=== PATIENT | male | born 1940 | race Caucasian/White ===

== ENCOUNTER 2017-12-17 02:39 | Inpatient (IN) | payer MEDICARE ==
[~2017-12-17] VITALS: Ht 172.7 cm; Wt 101.5 kg
[~2017-12-17 02:39] MED LIST: ACET325 PO; ALLO100 PO; ALLO300 PO; AMLO10 PO; ASPI325 PO; ASPI325EC PO; ASPI81EC PO; ATOR10 PO; CALCA500CH PO; FAMO40 PO; FENO48 PO; FISH1000 PO; GEMF600 PO; GLIP10ER PO; GLIP5 PO; GLUC500 PO; GLUCHON PO; LEVITRA PO; LISI10 PO; LOSA50 PO; METF500 PO; METO100 PO; METO100ER PO; Metoprolol Tar100 MG PO; NIAC500 PO; OXYACE5T PO; OXYB5 PO; Omeprazole20 M1 PO; PIOG15 PO; SIMV10 PO; SOLI5 PO; TORSE20 PO; VITAMIN C
[2017-12-17 03:40] LABS: Source, Urine Voided
[2017-12-17 03:43] LABS: Bilirubin, Urine Neg (Neg); Blood, Urine 2+ (Neg); Glucose Qualitative, Urine Neg (Neg); Ketones, Urine Neg (Neg); Leukocyte Esterase, Urine 3+ (Neg); Nitrite, Urine Neg (Neg); Protein, Urine 1+ (Neg); Specific Gravity, Urine 1.025 (1.003-1.022); Urobilinogen, Urine 1+ (Normal)
[2017-12-17 03:47] LABS: Appearance, Urine Clear (Clear); Color, Urine Yellow (P-Yellow)
[2017-12-17 03:48] LABS: Bacteria Many /hpf; Mucus Light (0-Heavy); Red Blood Cells, Urine 0-2 /hpf (0-2); Squamous Epithelial Cells Rare /hpf (Few)
[2017-12-17 04:06] LABS: BASOPHILS ABSOLUTE AUTO 0.02 K/mm3 (0.00-0.23); BASOPHILS PERCENT AUTO 0 % (0-2); EOSINOPHILS ABSOLUTE AUTO 0.04 K/mm3 (0.00-0.68); EOSINOPHILS PERCENT AUTO 0 % (0-6); Hematocrit 36.9 % (37.0-53.0); Hemoglobin 12.1 g/dL (13.5-17.5); IMMATURE GRAN ABSOLUTE AUTO 0.03 K/mm3 (0.00-0.10); IMMATURE GRAN PERCENT AUTO 0 % (0-1); LYMPHOCYTES ABSOLUTE AUTO 1.52 K/mm3 (0.84-5.20); LYMPHOCYTES PERCENT AUTO 16 % (21-46); MONOCYTES ABSOLUTE AUTO 0.55 K/mm3 (0.16-1.47); MONOCYTES PERCENT AUTO 6 % (4-13); Mean Corpuscular HGB 30.6 pg (26.0-34.0); Mean Corpuscular HGB Conc 32.8 g/dL (31.5-36.5); Mean Corpuscular Volume 93 fL (80-100); Mean Platelet Volume 10.4 fL (9.1-12.4); NEUTROPHILS ABSOLUTE AUTO 7.14 K/mm3 (1.96-9.15); NEUTROPHILS PERCENT AUTO 77 % (41-73); Platelet Count 345 K/mm3 (150-400); RDW Coefficient Variation 13.7 % (11.7-14.2); RDW Standard Deviation 47.4 fL (35.1-46.3); Red Blood Cell Count 3.96 M/mm3 (4.30-5.90)
[2017-12-17 04:21] LABS: Alanine Aminotransfer (ALT/SGP 19 U/L (12-78); Albumin, Blood 3.4 g/dL (3.4-5.0); Albumin/Globulin Ratio 0.8 (0.8-1.8); Alk Phos 120 U/L (50-136); Anion Gap 10 mmol/L (6-16); Aspartate Aminotrans (AST/SGOT 15 U/L (12-37); Bilirubin, Total 0.4 mg/dL (0.1-1.0); Blood Urea Nitrogen 26 mg/dL (8-24); Bun/Creatinine Ratio 21.7 (12.0-20.0); CO2, Blood 24 mmol/L (21-32); Calcium, Blood 9.3 mg/dL (8.5-10.1); Chloride, Blood 107 mmol/L (98-108); Glomerular Filtration Rate >60 (60-); Glucose, Blood 168 mg/dL (70-99); Potassium, Blood 4.1 mmol/L (3.5-5.5); Sodium, Blood 141 mmol/L (136-145); Total Protein, Blood 7.4 g/dL (6.4-8.2); Troponin I <0.015 ng/mL (0.000-0.040)
[2017-12-18 04:42] LABS: BASOPHILS ABSOLUTE AUTO 0.01 K/mm3 (0.00-0.23); BASOPHILS PERCENT AUTO 0 % (0-2); EOSINOPHILS ABSOLUTE AUTO 0.04 K/mm3 (0.00-0.68); EOSINOPHILS PERCENT AUTO 1 % (0-6); Hematocrit 30.9 % (37.0-53.0); Hemoglobin 9.9 g/dL (13.5-17.5); IMMATURE GRAN ABSOLUTE AUTO 0.02 K/mm3 (0.00-0.10); IMMATURE GRAN PERCENT AUTO 0 % (0-1); LYMPHOCYTES ABSOLUTE AUTO 1.47 K/mm3 (0.84-5.20); LYMPHOCYTES PERCENT AUTO 20 % (21-46); MONOCYTES ABSOLUTE AUTO 0.72 K/mm3 (0.16-1.47); MONOCYTES PERCENT AUTO 10 % (4-13); Mean Corpuscular Volume 94 fL (80-100); NEUTROPHILS ABSOLUTE AUTO 5.22 K/mm3 (1.96-9.15); NEUTROPHILS PERCENT AUTO 70 % (41-73); Platelet Count 251 K/mm3 (150-400); RDW Coefficient Variation 13.6 % (11.7-14.2); RDW Standard Deviation 47.1 fL (35.1-46.3); White Blood Cell Count 7.48 K/mm3 (4.00-11.30)
[2017-12-18 05:04] LABS: Magnesium, Blood 2.2 mg/dL (1.6-2.4)
[2017-12-18 05:20] LABS: Alanine Aminotransfer (ALT/SGP 13 U/L (12-78); Albumin, Blood 2.7 g/dL (3.4-5.0); Albumin/Globulin Ratio 0.8 (0.8-1.8); Alk Phos 91 U/L (50-136); Anion Gap 6 mmol/L (6-16); Aspartate Aminotrans (AST/SGOT 10 U/L (12-37); Bilirubin, Total 0.5 mg/dL (0.1-1.0); Blood Urea Nitrogen 25 mg/dL (8-24); Bun/Creatinine Ratio 23.8 (12.0-20.0); CO2, Blood 26 mmol/L (21-32); Calcium, Blood 8.1 mg/dL (8.5-10.1); Chloride, Blood 110 mmol/L (98-108); Creatinine, Blood 1.05 mg/dL (0.60-1.20); Globulin, Blood 3.2 g/dL (2.2-4.0); Glomerular Filtration Rate >60 (60-); Glucose, Blood 100 mg/dL (70-99); Phosphorus, Blood 2.8 mg/dL (2.5-4.9); Potassium, Blood 3.8 mmol/L (3.5-5.5); Sodium, Blood 142 mmol/L (136-145); Total Protein, Blood 5.9 g/dL (6.4-8.2)
[2017-12-18 16:47] LABS: International Normalized Ratio 1.72; Prothrombin Time Results 18.2 Sec (9.7-11.5)
[2017-12-19 00:38] LABS: BASOPHILS ABSOLUTE AUTO 0.02 K/mm3 (0.00-0.23); BASOPHILS PERCENT AUTO 0 % (0-2); EOSINOPHILS PERCENT AUTO 1 % (0-6); Hematocrit 31.9 % (37.0-53.0); Hemoglobin 10.3 g/dL (13.5-17.5); IMMATURE GRAN ABSOLUTE AUTO 0.03 K/mm3 (0.00-0.10); IMMATURE GRAN PERCENT AUTO 0 % (0-1); LYMPHOCYTES ABSOLUTE AUTO 1.26 K/mm3 (0.84-5.20); LYMPHOCYTES PERCENT AUTO 16 % (21-46); MONOCYTES ABSOLUTE AUTO 0.77 K/mm3 (0.16-1.47); MONOCYTES PERCENT AUTO 10 % (4-13); Mean Corpuscular HGB 30.8 pg (26.0-34.0); Mean Corpuscular HGB Conc 32.3 g/dL (31.5-36.5); Mean Corpuscular Volume 96 fL (80-100); Mean Platelet Volume 10.3 fL (9.1-12.4); NEUTROPHILS ABSOLUTE AUTO 5.66 K/mm3 (1.96-9.15); NEUTROPHILS PERCENT AUTO 72 % (41-73); Platelet Count 227 K/mm3 (150-400); RDW Coefficient Variation 13.5 % (11.7-14.2); RDW Standard Deviation 47.2 fL (35.1-46.3); Red Blood Cell Count 3.34 M/mm3 (4.30-5.90); White Blood Cell Count 7.84 K/mm3 (4.00-11.30)
[2017-12-19 00:51] LABS: Anion Gap 7 mmol/L (6-16); Blood Urea Nitrogen 19 mg/dL (8-24); Bun/Creatinine Ratio 18.6 (12.0-20.0); CO2, Blood 26 mmol/L (21-32); Calcium, Blood 8.4 mg/dL (8.5-10.1); Chloride, Blood 108 mmol/L (98-108); Creatinine, Blood 1.02 mg/dL (0.60-1.20); Glomerular Filtration Rate >60 (60-); Glucose, Blood 93 mg/dL (70-99); Potassium, Blood 3.7 mmol/L (3.5-5.5); Sodium, Blood 141 mmol/L (136-145)
[2017-12-20 06:14] LABS: Magnesium, Blood 2.2 mg/dL (1.6-2.4); Phosphorus, Blood 2.8 mg/dL (2.5-4.9); Triglycerides 110 mg/dL (30-160)
[2017-12-21 06:22] LABS: Magnesium, Blood 2.3 mg/dL (1.6-2.4)
[2017-12-21 21:01] LABS: BASOPHILS ABSOLUTE AUTO 0.02 K/mm3 (0.00-0.23); BASOPHILS PERCENT AUTO 0 % (0-2); EOSINOPHILS ABSOLUTE AUTO 0.01 K/mm3 (0.00-0.68); EOSINOPHILS PERCENT AUTO 0 % (0-6); Hematocrit 34.3 % (37.0-53.0); Hemoglobin 11.4 g/dL (13.5-17.5); IMMATURE GRAN ABSOLUTE AUTO 0.09 K/mm3 (0.00-0.10); IMMATURE GRAN PERCENT AUTO 1 % (0-1); LYMPHOCYTES ABSOLUTE AUTO 1.41 K/mm3 (0.84-5.20); LYMPHOCYTES PERCENT AUTO 17 % (21-46); MONOCYTES ABSOLUTE AUTO 0.87 K/mm3 (0.16-1.47); MONOCYTES PERCENT AUTO 11 % (4-13); Mean Corpuscular HGB 30.5 pg (26.0-34.0); Mean Corpuscular HGB Conc 33.2 g/dL (31.5-36.5); Mean Platelet Volume 10.6 fL (9.1-12.4); NEUTROPHILS ABSOLUTE AUTO 5.89 K/mm3 (1.96-9.15); NEUTROPHILS PERCENT AUTO 71 % (41-73); Platelet Count 173 K/mm3 (150-400); RDW Coefficient Variation 13.5 % (11.7-14.2); RDW Standard Deviation 45.7 fL (35.1-46.3); Red Blood Cell Count 3.74 M/mm3 (4.30-5.90); White Blood Cell Count 8.29 K/mm3 (4.00-11.30)
[2017-12-21 21:03] LABS: Mean Corpuscular Volume 92 fL (80-100)
[2017-12-21 21:31] LABS: Source, Urine Clean Catch
[2017-12-21 21:40] LABS: Bilirubin, Urine Neg (Neg); Blood, Urine 1+ (Neg); Glucose Qualitative, Urine Neg (Neg); Ketones, Urine Neg (Neg); Leukocyte Esterase, Urine 1+ (Neg); Nitrite, Urine Neg (Neg); Protein, Urine 2+ (Neg); Urobilinogen, Urine NORM (Normal)
[2017-12-21 21:45] LABS: Appearance, Urine Clear (Clear); Color, Urine Yellow (P-Yellow)
[2017-12-21 21:46] LABS: Bacteria Few /hpf; Squamous Epithelial Cells Not Seen /hpf (Few); White Blood Cells, Urine 0-2 /hpf (0-5)
[2017-12-22 05:06] LABS: Magnesium, Blood 2.4 mg/dL (1.6-2.4); Phosphorus, Blood 4.3 mg/dL (2.5-4.9)
[2017-12-22 10:22] LABS: BASOPHILS ABSOLUTE AUTO 0.01 K/mm3 (0.00-0.23); BASOPHILS PERCENT AUTO 0 % (0-2); EOSINOPHILS ABSOLUTE AUTO 0.04 K/mm3 (0.00-0.68); EOSINOPHILS PERCENT AUTO 1 % (0-6); Hemoglobin 11.9 g/dL (13.5-17.5); IMMATURE GRAN ABSOLUTE AUTO 0.04 K/mm3 (0.00-0.10); IMMATURE GRAN PERCENT AUTO 1 % (0-1); LYMPHOCYTES ABSOLUTE AUTO 0.94 K/mm3 (0.84-5.20); LYMPHOCYTES PERCENT AUTO 18 % (21-46); MONOCYTES ABSOLUTE AUTO 0.56 K/mm3 (0.16-1.47); MONOCYTES PERCENT AUTO 11 % (4-13); Mean Corpuscular HGB 30.7 pg (26.0-34.0); Mean Corpuscular HGB Conc 33.1 g/dL (31.5-36.5); Mean Corpuscular Volume 93 fL (80-100); Mean Platelet Volume 10.7 fL (9.1-12.4); NEUTROPHILS ABSOLUTE AUTO 3.65 K/mm3 (1.96-9.15); NEUTROPHILS PERCENT AUTO 70 % (41-73); Platelet Count 174 K/mm3 (150-400); RDW Coefficient Variation 13.5 % (11.7-14.2); RDW Standard Deviation 46.1 fL (35.1-46.3); Red Blood Cell Count 3.88 M/mm3 (4.30-5.90); White Blood Cell Count 5.24 K/mm3 (4.00-11.30)
[2017-12-22 11:02] LABS: Alanine Aminotransfer (ALT/SGP 24 U/L (12-78); Albumin, Blood 2.7 g/dL (3.4-5.0); Albumin/Globulin Ratio 0.7 (0.8-1.8); Alk Phos 88 U/L (50-136); Anion Gap 11 mmol/L (6-16); Aspartate Aminotrans (AST/SGOT 27 U/L (12-37); Bilirubin, Total 0.4 mg/dL (0.1-1.0); Blood Urea Nitrogen 27 mg/dL (8-24); Bun/Creatinine Ratio 22.1 (12.0-20.0); CO2, Blood 23 mmol/L (21-32); Calcium, Blood 8.3 mg/dL (8.5-10.1); Chloride, Blood 104 mmol/L (98-108); Creatinine, Blood 1.22 mg/dL (0.60-1.20); Globulin, Blood 3.8 g/dL (2.2-4.0); Glomerular Filtration Rate >60 (60-); Glucose, Blood 175 mg/dL (70-99); Potassium, Blood 3.3 mmol/L (3.5-5.5); Sodium, Blood 138 mmol/L (136-145); Total Protein, Blood 6.5 g/dL (6.4-8.2)
[2017-12-22] MEDS ORDERED: WARF5 PO (13:43)
[2018-04-06] MEDS ORDERED: WARFARIN PO (17:36)
[2018-04-06] MEDS ORDERED: VITAMIN D31000 UNIT PO (17:37)
[2018-04-06] MEDS ORDERED: Cipro250 MG PO (20:22)
[2018-04-06] MEDS ORDERED: Zofran Odt4 MG PO (20:22)
[2018-04-06] MEDS ORDERED: Cipro500 MG PO (20:24)
== END 2017-12-22 14:45 | disposition home or self-care (01) | DRG 389 ==
LOC: ER 02:39 → MEDS 06:20 → ENPENDDIS 12-22 12:20 → MEDS 12-22 14:45
PROVIDERS: Emergency Medicine; Family Medicine; Hospitalist; Internal Medicine
PROC: 3E0G76Z Introduction of Nutritional Substance into Upper GI, Via Natural or Artificial Opening (ICD-10-PCS; principal; 2017-12-17)
PROC: 0D9670Z Drainage of Stomach with Drainage Device, Via Natural or Artificial Opening (ICD-10-PCS; principal; 2017-12-17)
DX: K56.609 Unspecified intestinal obstruction, unspecified as to partial versus complete obstruction (principal); N39.0 Urinary tract infection, site not specified; I48.0 Paroxysmal atrial fibrillation; D64.9 Anemia, unspecified; E11.9 Type 2 diabetes mellitus without complications; E78.5 Hyperlipidemia, unspecified; F17.211 Nicotine dependence, cigarettes, in remission; I48.91 Unspecified atrial fibrillation; I10 Essential (primary) hypertension; K66.0 Peritoneal adhesions (postprocedural) (postinfection); R06.02 Shortness of breath; Z79.4 Long term (current) use of insulin; Z95.5 Presence of coronary angioplasty implant and graft; I25.10 Atherosclerotic heart disease of native coronary artery without angina pectoris; Z90.49 Acquired absence of other specified parts of digestive tract; Z85.038 Personal history of other malignant neoplasm of large intestine
CPT/HCPCS: 36415; 36416; 36569; 74022; 74176; 74250; 80048; 80053; 81001; 82947; 83605; 83690; 83735; 84100; 84478; 84484; 85025; 85610; 85730; 87040; 87086; 93005; 93010; 96374; 96375; 99285; C1751; J0360; J0696; J1170; J1644; J1650; J2405; J7030; J7040

== ENCOUNTER 2018-01-28 17:42 | Inpatient (IN) | payer MEDICARE ==
[~2018-01-28] VITALS: Ht 172.7 cm; Wt 102.1 kg
[~2018-01-28 17:42] MED LIST changes: +WARF5 PO
[2018-01-28 18:57] LABS: BASOPHILS ABSOLUTE AUTO 0.01 K/mm3 (0.00-0.23); BASOPHILS PERCENT AUTO 0 % (0-2); EOSINOPHILS ABSOLUTE AUTO 0.05 K/mm3 (0.00-0.68); EOSINOPHILS PERCENT AUTO 0 % (0-6); Hematocrit 36.3 % (37.0-53.0); Hemoglobin 11.8 g/dL (13.5-17.5); IMMATURE GRAN ABSOLUTE AUTO 0.04 K/mm3 (0.00-0.10); IMMATURE GRAN PERCENT AUTO 0 % (0-1); LYMPHOCYTES ABSOLUTE AUTO 1.56 K/mm3 (0.84-5.20); LYMPHOCYTES PERCENT AUTO 12 % (21-46); MONOCYTES ABSOLUTE AUTO 0.67 K/mm3 (0.16-1.47); MONOCYTES PERCENT AUTO 5 % (4-13); Mean Corpuscular HGB 29.6 pg (26.0-34.0); Mean Corpuscular HGB Conc 32.5 g/dL (31.5-36.5); Mean Corpuscular Volume 91 fL (80-100); Mean Platelet Volume 10.6 fL (9.1-12.4); NEUTROPHILS ABSOLUTE AUTO 10.25 K/mm3 (1.96-9.15); NEUTROPHILS PERCENT AUTO 82 % (41-73); Platelet Count 235 K/mm3 (150-400); RDW Coefficient Variation 14.5 % (11.7-14.2); RDW Standard Deviation 48.6 fL (35.1-46.3); Red Blood Cell Count 3.98 M/mm3 (4.30-5.90); White Blood Cell Count 12.58 K/mm3 (4.00-11.30)
[2018-01-28 19:14] LABS: Alanine Aminotransfer (ALT/SGP 17 U/L (12-78); Albumin, Blood 3.4 g/dL (3.4-5.0); Albumin/Globulin Ratio 0.9 (0.8-1.8); Alk Phos 104 U/L (50-136); Anion Gap 13 mmol/L (6-16); Aspartate Aminotrans (AST/SGOT 18 U/L (12-37); Bilirubin, Total 0.4 mg/dL (0.1-1.0); Blood Urea Nitrogen 23 mg/dL (8-24); Bun/Creatinine Ratio 21.1 (12.0-20.0); CO2, Blood 21 mmol/L (21-32); Calcium, Blood 8.9 mg/dL (8.5-10.1); Chloride, Blood 107 mmol/L (98-108); Creatinine, Blood 1.09 mg/dL (0.60-1.20); Globulin, Blood 3.8 g/dL (2.2-4.0); Glomerular Filtration Rate >60 (60-); Glucose, Blood 104 mg/dL (70-99); Potassium, Blood 3.6 mmol/L (3.5-5.5); Sodium, Blood 141 mmol/L (136-145); Total Protein, Blood 7.2 g/dL (6.4-8.2)
[2018-01-28 19:17] LABS: International Normalized Ratio 2.01; Prothrombin Time Results 21.4 Sec (9.7-11.5)
[2018-01-28 21:15] LABS: Source, Urine Clean Catch
[2018-01-28 21:22] LABS: Appearance, Urine Clear (Clear); Bilirubin, Urine Neg (Neg); Blood, Urine 1+ (Neg); Color, Urine Yellow (P-Yellow); Glucose Qualitative, Urine Neg (Neg); International Normalized Ratio 1.95; Ketones, Urine Neg (Neg); Leukocyte Esterase, Urine 3+ (Neg); Nitrite, Urine Neg (Neg); Protein, Urine Neg (Neg); Prothrombin Time Results 20.7 Sec (9.7-11.5); Urobilinogen, Urine NORM (Normal)
[2018-01-28 21:29] LABS: Bacteria Few /hpf; Squamous Epithelial Cells Few /hpf (Few)
[2018-01-29 04:12] LABS: BASOPHILS ABSOLUTE AUTO 0.01 K/mm3 (0.00-0.23); BASOPHILS PERCENT AUTO 0 % (0-2); EOSINOPHILS ABSOLUTE AUTO 0.06 K/mm3 (0.00-0.68); EOSINOPHILS PERCENT AUTO 1 % (0-6); Hematocrit 36.5 % (37.0-53.0); Hemoglobin 11.8 g/dL (13.5-17.5); IMMATURE GRAN ABSOLUTE AUTO 0.02 K/mm3 (0.00-0.10); IMMATURE GRAN PERCENT AUTO 0 % (0-1); LYMPHOCYTES ABSOLUTE AUTO 1.75 K/mm3 (0.84-5.20); LYMPHOCYTES PERCENT AUTO 16 % (21-46); MONOCYTES ABSOLUTE AUTO 0.72 K/mm3 (0.16-1.47); MONOCYTES PERCENT AUTO 7 % (4-13); Mean Corpuscular HGB 29.7 pg (26.0-34.0); Mean Corpuscular HGB Conc 32.3 g/dL (31.5-36.5); Mean Corpuscular Volume 92 fL (80-100); Mean Platelet Volume 10.6 fL (9.1-12.4); NEUTROPHILS ABSOLUTE AUTO 8.27 K/mm3 (1.96-9.15); NEUTROPHILS PERCENT AUTO 76 % (41-73); Platelet Count 250 K/mm3 (150-400); RDW Coefficient Variation 14.6 % (11.7-14.2); RDW Standard Deviation 49.5 fL (35.1-46.3); Red Blood Cell Count 3.97 M/mm3 (4.30-5.90); White Blood Cell Count 10.83 K/mm3 (4.00-11.30)
[2018-01-29 04:31] LABS: Alanine Aminotransfer (ALT/SGP 18 U/L (12-78); Albumin, Blood 3.3 g/dL (3.4-5.0); Albumin/Globulin Ratio 0.9 (0.8-1.8); Alk Phos 98 U/L (50-136); Anion Gap 9 mmol/L (6-16); Aspartate Aminotrans (AST/SGOT 13 U/L (12-37); Bilirubin, Total 0.4 mg/dL (0.1-1.0); Blood Urea Nitrogen 22 mg/dL (8-24); Bun/Creatinine Ratio 22.2 (12.0-20.0); CO2, Blood 23 mmol/L (21-32); Calcium, Blood 8.5 mg/dL (8.5-10.1); Chloride, Blood 109 mmol/L (98-108); Creatinine, Blood 0.99 mg/dL (0.60-1.20); Globulin, Blood 3.7 g/dL (2.2-4.0); Glomerular Filtration Rate >60 (60-); Glucose, Blood 95 mg/dL (70-99); Potassium, Blood 3.9 mmol/L (3.5-5.5); Sodium, Blood 141 mmol/L (136-145)
[2018-04-06] MEDS ORDERED: WARFARIN PO (17:36)
[2018-04-06] MEDS ORDERED: VITAMIN D31000 UNIT PO (17:37)
[2018-04-06] MEDS ORDERED: Zofran Odt4 MG PO (20:22)
[2018-04-06] MEDS ORDERED: Cipro250 MG PO (20:22)
[2018-04-06] MEDS ORDERED: Cipro500 MG PO (20:24)
== END 2018-01-29 12:37 | disposition home or self-care (01) | DRG 390 ==
LOC: ER 17:42 → SURS 20:37
PROVIDERS: Internal Medicine; Physician Assistant
DX: K56.609 Unspecified intestinal obstruction, unspecified as to partial versus complete obstruction (principal); E11.9 Type 2 diabetes mellitus without complications; I25.10 Atherosclerotic heart disease of native coronary artery without angina pectoris; I10 Essential (primary) hypertension; E78.5 Hyperlipidemia, unspecified; Z85.038 Personal history of other malignant neoplasm of large intestine; Z79.01 Long term (current) use of anticoagulants; Z79.84 Long term (current) use of oral hypoglycemic drugs; Z79.899 Other long term (current) drug therapy; Z93.3 Colostomy status; Z87.891 Personal history of nicotine dependence
CPT/HCPCS: 36415; 74176; 80053; 81001; 82947; 83690; 85025; 85610; 96374; 96375; 99285; J1170; J2405; J7030

== ENCOUNTER 2018-10-02 14:43 | Observation (INO) | payer MEDICARE ==
[~2018-10-02] VITALS: Ht 172.7 cm; Wt 102.9 kg
[~2018-10-02 14:43] MED LIST changes: +Cipro250 MG PO; +Cipro500 MG PO; +VITAMIN D31000 UNIT PO; +WARFARIN PO; +Zofran Odt4 MG PO
[2018-10-02 15:21] LABS: Source, Urine Voided
[2018-10-02 15:38] LABS: Bilirubin, Urine Neg (Neg); Blood, Urine 2+ (Neg); Glucose Qualitative, Urine Neg (Neg); Ketones, Urine Neg (Neg); Leukocyte Esterase, Urine 1+ (Neg); Nitrite, Urine Neg (Neg); Protein, Urine Neg (Neg); Urobilinogen, Urine NORM (Normal)
[2018-10-02 15:46] LABS: BASOPHILS ABSOLUTE AUTO 0.01 K/mm3 (0.00-0.23); BASOPHILS PERCENT AUTO 0 % (0-2); EOSINOPHILS ABSOLUTE AUTO 0.01 K/mm3 (0.00-0.68); EOSINOPHILS PERCENT AUTO 0 % (0-6); Hematocrit 35.5 % (37.0-53.0); Hemoglobin 11.3 g/dL (13.5-17.5); IMMATURE GRAN ABSOLUTE AUTO 0.07 K/mm3 (0.00-0.10); IMMATURE GRAN PERCENT AUTO 1 % (0-1); LYMPHOCYTES ABSOLUTE AUTO 1.17 K/mm3 (0.84-5.20); LYMPHOCYTES PERCENT AUTO 13 % (21-46); MONOCYTES ABSOLUTE AUTO 0.78 K/mm3 (0.16-1.47); MONOCYTES PERCENT AUTO 9 % (4-13); Mean Corpuscular HGB 29.7 pg (26.0-34.0); Mean Corpuscular HGB Conc 31.8 g/dL (31.5-36.5); Mean Corpuscular Volume 93 fL (80-100); Mean Platelet Volume 10.5 fL (9.1-12.4); NEUTROPHILS ABSOLUTE AUTO 7.08 K/mm3 (1.96-9.15); NEUTROPHILS PERCENT AUTO 78 % (41-73); Platelet Count 200 K/mm3 (150-400); RDW Coefficient Variation 14.6 % (11.7-14.2); RDW Standard Deviation 49.4 fL (35.1-46.3); White Blood Cell Count 9.12 K/mm3 (4.00-11.30)
[2018-10-02 15:50] LABS: Appearance, Urine Clear (Clear); Color, Urine Yellow (P-Yellow)
[2018-10-02 15:52] LABS: Squamous Epithelial Cells Rare /hpf (Few)
[2018-10-02 15:53] LABS: Bacteria Few /hpf
[2018-10-02 16:09] LABS: Alanine Aminotransfer (ALT/SGP 25 U/L (12-78); Albumin, Blood 3.4 g/dL (3.4-5.0); Albumin/Globulin Ratio 1.1 (0.8-1.8); Alk Phos 85 U/L (50-136); Anion Gap 10 mmol/L (6-16); Aspartate Aminotrans (AST/SGOT 19 U/L (12-37); Bilirubin, Total 0.4 mg/dL (0.1-1.0); Blood Urea Nitrogen 35 mg/dL (8-24); Bun/Creatinine Ratio 27.6 (12.0-20.0); CO2, Blood 24 mmol/L (21-32); Calcium, Blood 8.3 mg/dL (8.5-10.1); Chloride, Blood 109 mmol/L (98-108); Creatinine, Blood 1.27 mg/dL (0.60-1.20); Ethanol (Alcohol), Blood, Med <3 mg/dL; Globulin, Blood 3.2 g/dL (2.2-4.0); Glomerular Filtration Rate 58 (60-); Glucose, Blood 63 mg/dL (70-99); Potassium, Blood 4.1 mmol/L (3.5-5.5); Sodium, Blood 143 mmol/L (136-145); Total Protein, Blood 6.6 g/dL (6.4-8.2); Troponin I <0.015 ng/mL (0.000-0.040)
[2018-10-02 16:23] LABS: International Normalized Ratio 2.05; Prothrombin Time Results 20.3 Sec (9.7-11.5)
[2018-10-03 05:07] LABS: Anion Gap 10 mmol/L (6-16); Blood Urea Nitrogen 31 mg/dL (8-24); Bun/Creatinine Ratio 27.4 (12.0-20.0); CO2, Blood 24 mmol/L (21-32); Calcium, Blood 8.4 mg/dL (8.5-10.1); Chloride, Blood 108 mmol/L (98-108); Creatinine, Blood 1.13 mg/dL (0.60-1.20); Glomerular Filtration Rate >60 (60-); Glucose, Blood 83 mg/dL (70-99); Potassium, Blood 4.2 mmol/L (3.5-5.5); Sodium, Blood 142 mmol/L (136-145)
[2018-10-03 05:41] LABS: International Normalized Ratio 2.01; Prothrombin Time Results 19.9 Sec (9.7-11.5)
[2018-10-03] MEDS ORDERED: METF500C PO (11:26)
== END 2018-10-03 13:31 | disposition home or self-care (01) ==
LOC: ER 14:43 → MEDS 14:44 → ENPENDDIS 10-03 12:08 → MEDS 10-03 13:31
PROVIDERS: Emergency Medicine; Internal Medicine
DX: G93.41 Metabolic encephalopathy (principal); R47.01 Aphasia; I25.10 Atherosclerotic heart disease of native coronary artery without angina pectoris; I25.2 Old myocardial infarction; E11.22 Type 2 diabetes mellitus with diabetic chronic kidney disease; I13.0 Hypertensive heart and chronic kidney disease with heart failure and stage 1 through stage 4 chronic kidney disease, or unspecified chronic kidney disease; I50.9 Heart failure, unspecified; N18.3 Chronic kidney disease, stage 3 (moderate); M19.90 Unspecified osteoarthritis, unspecified site; E78.5 Hyperlipidemia, unspecified; E11.649 Type 2 diabetes mellitus with hypoglycemia without coma; I48.0 Paroxysmal atrial fibrillation; Z85.038 Personal history of other malignant neoplasm of large intestine; Z95.5 Presence of coronary angioplasty implant and graft; Z79.01 Long term (current) use of anticoagulants; Z90.49 Acquired absence of other specified parts of digestive tract; Z79.84 Long term (current) use of oral hypoglycemic drugs; Z79.899 Other long term (current) drug therapy; Z82.49 Family history of ischemic heart disease and other diseases of the circulatory system; Z87.891 Personal history of nicotine dependence
CPT/HCPCS: 36415; 70450; 71045; 80048; 80053; 81001; 82947; 83605; 84443; 84484; 85025; 85610; 87086; 93005; 93010; 96360; 96361; 99285-25; G0378; G0480; J7042

== ENCOUNTER 2019-07-25 19:01 | Inpatient (IN) | payer MEDICARE ==
[~2019-07-25] VITALS: Ht 172.7 cm; Wt 106.5 kg
[~2019-07-25 19:01] MED LIST changes: +METF500C PO
[2019-07-25 20:04] LABS: BASOPHILS ABSOLUTE AUTO 0.01 K/mm3 (0.00-0.23); BASOPHILS PERCENT AUTO 0 % (0-2); EOSINOPHILS ABSOLUTE AUTO 0.02 K/mm3 (0.00-0.68); EOSINOPHILS PERCENT AUTO 0 % (0-6); Hematocrit 34.3 % (37.0-53.0); Hemoglobin 11.4 g/dL (13.5-17.5); IMMATURE GRAN ABSOLUTE AUTO 0.07 K/mm3 (0.00-0.10); IMMATURE GRAN PERCENT AUTO 1 % (0-1); LYMPHOCYTES ABSOLUTE AUTO 3.22 K/mm3 (0.84-5.20); LYMPHOCYTES PERCENT AUTO 23 % (21-46); MONOCYTES ABSOLUTE AUTO 0.69 K/mm3 (0.16-1.47); MONOCYTES PERCENT AUTO 5 % (4-13); Mean Corpuscular HGB 29.4 pg (26.0-34.0); Mean Corpuscular HGB Conc 33.2 g/dL (31.5-36.5); Mean Corpuscular Volume 88 fL (80-100); Mean Platelet Volume 10.8 fL (9.1-12.4); NEUTROPHILS ABSOLUTE AUTO 9.79 K/mm3 (1.96-9.15); NEUTROPHILS PERCENT AUTO 71 % (41-73); Platelet Count 261 K/mm3 (150-400); RDW Coefficient Variation 15.2 % (11.7-14.2); RDW Standard Deviation 49.4 fL (35.1-46.3); Red Blood Cell Count 3.88 M/mm3 (4.30-5.90)
[2019-07-25 20:23] LABS: Alanine Aminotransfer (ALT/SGP 18 U/L (12-78); Albumin, Blood 4.1 g/dL (3.4-5.0); Albumin/Globulin Ratio 1.1 (0.8-1.8); Alk Phos 112 U/L (50-136); Anion Gap 13 mmol/L (6-16); Aspartate Aminotrans (AST/SGOT 17 U/L (12-37); Bilirubin, Total 0.5 mg/dL (0.1-1.0); Blood Urea Nitrogen 26 mg/dL (8-24); CO2, Blood 20 mmol/L (21-32); Calcium, Blood 9.4 mg/dL (8.5-10.1); Chloride, Blood 110 mmol/L (98-108); Creatinine, Blood 1.13 mg/dL (0.60-1.20); Globulin, Blood 3.7 g/dL (2.2-4.0); Glomerular Filtration Rate >60 (60-); Glucose, Blood 191 mg/dL (70-99); Potassium, Blood 3.5 mmol/L (3.5-5.5); Sodium, Blood 143 mmol/L (136-145); Total Protein, Blood 7.8 g/dL (6.4-8.2)
[2019-07-25] MEDS ORDERED: PIOG15 PO (22:19)
[2019-07-25] MEDS ORDERED: GLIP10ER PO (22:21)
[2019-07-25 23:40] LABS: International Normalized Ratio 2.01
--- NOTE | 2019-07-26 01:29 | NUR ---
PATIENT IS A NEW ADMIT FROM THE ED. AXOX 3 AND ONE ASSIST TRANSFER FROM [facility] TO BED. NS INFUSING AT 125mL/HR WITH KCL INFUSING AT 50 mL/HR X ONE 100mL BAG. PATIENT DENIES PAIN AND SOB. MILD N/V WITH MOVEMENT. ED RN REPORTS NO NG TUBE AT THIS TIME. NPO. COLOSTOMY LLQ, SELF CARE. REPORTS USES A URINAL BS STANDING ONLY. PATIENT ORIENTED TO ROOM AND CALL LIGHT SYSTEM. CALL LIGHT IN REACH.
--- NOTE | 2019-07-26 03:46 | NUR ---
[place] NOW REPORTS PATIENT IS A-FIB MID 80'S. TECH REPORTS ON ADMIT PATENT APPEARED TO BE NSR 70'S.
[2019-07-26 04:27] LABS: BASOPHILS ABSOLUTE AUTO 0.01 K/mm3 (0.00-0.23); BASOPHILS PERCENT AUTO 0 % (0-2); EOSINOPHILS PERCENT AUTO 0 % (0-6); Hematocrit 32.2 % (37.0-53.0); Hemoglobin 10.3 g/dL (13.5-17.5); IMMATURE GRAN ABSOLUTE AUTO 0.02 K/mm3 (0.00-0.10); IMMATURE GRAN PERCENT AUTO 0 % (0-1); LYMPHOCYTES ABSOLUTE AUTO 0.92 K/mm3 (0.84-5.20); LYMPHOCYTES PERCENT AUTO 11 % (21-46); MONOCYTES ABSOLUTE AUTO 0.63 K/mm3 (0.16-1.47); MONOCYTES PERCENT AUTO 7 % (4-13); Mean Corpuscular HGB 28.9 pg (26.0-34.0); Mean Corpuscular Volume 90 fL (80-100); Mean Platelet Volume 10.2 fL (9.1-12.4); NEUTROPHILS PERCENT AUTO 82 % (41-73); Platelet Count 206 K/mm3 (150-400); RDW Coefficient Variation 15.1 % (11.7-14.2); RDW Standard Deviation 49.6 fL (35.1-46.3); Red Blood Cell Count 3.57 M/mm3 (4.30-5.90); White Blood Cell Count 8.58 K/mm3 (4.00-11.30)
[2019-07-26 04:45] LABS: Alanine Aminotransfer (ALT/SGP 17 U/L (12-78); Albumin, Blood 3.5 g/dL (3.4-5.0); Albumin/Globulin Ratio 1.1 (0.8-1.8); Alk Phos 99 U/L (50-136); Anion Gap 7 mmol/L (6-16); Aspartate Aminotrans (AST/SGOT 10 U/L (12-37); Bilirubin, Total 0.4 mg/dL (0.1-1.0); Blood Urea Nitrogen 22 mg/dL (8-24); Bun/Creatinine Ratio 20.2 (12.0-20.0); CO2, Blood 25 mmol/L (21-32); Calcium, Blood 8.6 mg/dL (8.5-10.1); Chloride, Blood 113 mmol/L (98-108); Creatinine, Blood 1.09 mg/dL (0.60-1.20); Globulin, Blood 3.3 g/dL (2.2-4.0); Glomerular Filtration Rate >60 (60-); Glucose, Blood 153 mg/dL (70-99); Potassium, Blood 4.1 mmol/L (3.5-5.5); Sodium, Blood 145 mmol/L (136-145); Total Protein, Blood 6.8 g/dL (6.4-8.2)
--- NOTE | 2019-07-26 04:57 | NUR ---
SHIFT SUMMARY PATIENT IS A NEW ADMIT FROM THE ED. AXOX 3 AND ONE ASSIST TO BR. USES URINAL AT BEDSIDE STANDING ONLY. NPO. DENIES PAIN, SOB, AND N/V. BLOOD GLUCOSE CHECKS Q6 START IN AM. PIV REMAINS INTACT. SCHEDULED NS KCL AND SCHEDULE NS INFUSING PER EMAR. COLOSTOMY LLQ AND SELF CARE PER PATIENT. IT TRAINEE REPORTS A-FIB MID 80'S. VSS/AFBEBRILE. COOPERATIVE WITH CARE., CALL LIGHT IN REACH. BED IN LOWEST POSITION. WILL CONTINUE TO MONITOR UNTIL DAY SHIFT NURSE ASSUMES CARE.
--- NOTE | 2019-07-26 15:13 | NUR ---
Initial Visit: Palliative Care Consult for AD/POLST and Advanced Care Planning. Pt is A&O and reports a tolerable 4/10 pain in his upper abdomen. Pt denies anxiety, dyspnea, and nausea at this time. Engaged in therapeutic conversation regarding advanced care planning. Pt reports living at home with his and is 's caregiver. Pt denies any latter-day beliefs. Pt reports having 3 children, 2 daughter who live [place] Pt reports minimal support but can call on one of his daughters if needed. Assessed Pt's understanding of disease process and when asked about his knowlede of CHF Pt's states "not much". Educated Pt on disease process and trajectory of disease. Encouraged Pt to have routine conversations with PCP and manager strategic development regarding disease process in order to plan accordingly with V/U made by Pt. Engaged in disussion regarding code status, POLST and Advanced Directive. Listened as Pt describes his wishes. Educated Pt on life sustaining measures including risk factors. Pt reports he does not want to be on life support for a prolonged period of time but would like everything done in a sudden or acute event. Discussed completing POLST/AD and Pt denies need at this time. Confirmed Pt's wishes and Pt reports wanting to be a full code. Left AD wtih Pt and encouraged consideration of completing. Pt reports no other concerns at this time. Changed code status to full code per V/O from Dr Zayas. Palliative Care will remain available.
--- NOTE | 2019-07-26 15:29 | NUR ---
Late Entry from Initial Visit. Discussed with Pt report of him unsure if he would accept surgical intervention if needed. Pt reports he would accept surgery if needed.
--- NOTE | 2019-07-26 17:04 | NUR ---
Spiritual Care inital note: Mr. Moreno was dismissive of pastoral care. [employer] will remain available.
--- NOTE | 2019-07-26 18:25 | NUR ---
PT. WITHOUT N/V TODAY HAS BEEN STARTED ON CLEAR LIQUIDS. TOLERATING WELL. PT. HAS DENIED PAIN WELL. PT. HAS LARGE HERNIA AROUND STOMA, B.T. ARE HYPERACTIVE AND OSTOMY PUTTING OUT STOOL. DR. VALERO IN TO SEE PT AND DOESN'T FEEL SURGERY IS NECESSARY. NO OTHER CHANGES THIS SHIFT.
--- NOTE | 2019-07-27 04:45 | NUR ---
SHIFT SUMMARY PT HAD NO ISSUES OR COMPLAINTS. PT HAS SLEPT WELL T/O SHIFT. PT CURRENTLY SLEEPING IN NO DISTRESS. CALL LIGHT IN REACH.
[2019-07-27] MEDS ORDERED: FERSU300 PO (07:55)
[2019-07-27] MEDS ORDERED: OMEPRAZOLE20 MG PO (07:55)
--- NOTE | 2019-07-27 10:15 | NUR ---
PATIENT DISCHARGE: PATIENT DISCHARGED TO HOME THIS SHIFT. MEDICATION RECONCILIATION COMPLETED; MED LIST FAXED TO [facility]. DISCHARGE EDUCATION COMPLETED WITH PATIENT AND FAMILY. PATIENT TRANSPORTED TO EXIT BY [facility] WITH WHEELCHAIR AT 1000. PATIENT DEPARTED [facility] VIA PRIVATE AUTO.
== END 2019-07-27 10:08 | disposition home or self-care (01) | DRG 389 ==
LOC: ER 19:01 → MEDS 19:02 → ER 07-26 23:50 → ENPENDDIS 07-27 07:39 → MEDS 07-27 10:08
PROVIDERS: Emergency Medicine; Nurse Practitioner Acute Care; ADMIT Family Medicine
DX: K56.600 Partial intestinal obstruction, unspecified as to cause (principal); I50.32 Chronic diastolic (congestive) heart failure; I13.0 Hypertensive heart and chronic kidney disease with heart failure and stage 1 through stage 4 chronic kidney disease, or unspecified chronic kidney disease; Z93.3 Colostomy status; Z90.49 Acquired absence of other specified parts of digestive tract; Z85.048 Personal history of other malignant neoplasm of rectum, rectosigmoid junction, and anus; I25.10 Atherosclerotic heart disease of native coronary artery without angina pectoris; I25.2 Old myocardial infarction; Z95.5 Presence of coronary angioplasty implant and graft; M19.90 Unspecified osteoarthritis, unspecified site; E78.5 Hyperlipidemia, unspecified; N18.3 Chronic kidney disease, stage 3 (moderate); E11.22 Type 2 diabetes mellitus with diabetic chronic kidney disease; I48.0 Paroxysmal atrial fibrillation; Z87.891 Personal history of nicotine dependence; Z66 Do not resuscitate; Z79.01 Long term (current) use of anticoagulants; G47.33 Obstructive sleep apnea (adult) (pediatric); M10.9 Gout, unspecified; K43.5 Parastomal hernia without obstruction or gangrene
CPT/HCPCS: 36415; 71046; 74177; 80053; 82947; 83605; 83690; 83735; 85025; 85610; 87040; 93005; 93010; 96361; 96365-59; 96375; 99285-25; J2405; J2543; J3010; J3480; J7030; Q9967

== ENCOUNTER 2019-11-06 10:12 | Day surgery (SDC) | payer MEDICARE ==
[~2019-11-06] VITALS: Ht 172.7 cm; Wt 104.8 kg
[~2019-11-06 10:12] MED LIST changes: +FERSU300 PO; +OMEPRAZOLE20 MG PO
--- NOTE | 2019-11-06 11:14 | NUR ---
11/06/19 1114 Nelida Vazquez ONE BAD IV BY DAIANA, ON GOOD IV IN RIGHT AC BY NURSE
== END 2019-11-06 13:02 | disposition home or self-care (01) ==
LOC: ORSCSDS 10:12
PROVIDERS: Internal Medicine Gastroenterology
PROC: 0DBL8ZX Excision of Transverse Colon, Via Natural or Artificial Opening Endoscopic, Diagnostic (ICD-10-PCS; principal; 2019-11-06 12:00)
PROC: 0DBK8ZX Excision of Ascending Colon, Via Natural or Artificial Opening Endoscopic, Diagnostic (ICD-10-PCS; principal; 2019-11-06 12:00)
DX: Z12.11 Encounter for screening for malignant neoplasm of colon (principal); D12.2 Benign neoplasm of ascending colon; D12.3 Benign neoplasm of transverse colon; Z85.038 Personal history of other malignant neoplasm of large intestine; I48.91 Unspecified atrial fibrillation; I10 Essential (primary) hypertension; I50.9 Heart failure, unspecified; I25.10 Atherosclerotic heart disease of native coronary artery without angina pectoris; E11.9 Type 2 diabetes mellitus without complications; E78.5 Hyperlipidemia, unspecified; I25.2 Old myocardial infarction; G47.33 Obstructive sleep apnea (adult) (pediatric); Z79.01 Long term (current) use of anticoagulants; Z79.899 Other long term (current) drug therapy
CPT/HCPCS: 82947; 88305; J2704

== ENCOUNTER → 2020-02-03 | Outpatient (CLI) | payer MEDICARE ==
[2020-02-03 12:58] LABS: BASOPHILS ABSOLUTE AUTO 0.03 K/mm3 (0.00-0.23); BASOPHILS PERCENT AUTO 0 % (0-2); EOSINOPHILS ABSOLUTE AUTO 0.01 K/mm3 (0.00-0.68); EOSINOPHILS PERCENT AUTO 0 % (0-6); Hemoglobin 11.3 g/dL (13.5-17.5); IMMATURE GRAN ABSOLUTE AUTO 0.04 K/mm3 (0.00-0.10); IMMATURE GRAN PERCENT AUTO 0 % (0-1); LYMPHOCYTES ABSOLUTE AUTO 1.29 K/mm3 (0.84-5.20); LYMPHOCYTES PERCENT AUTO 14 % (21-46); MONOCYTES ABSOLUTE AUTO 0.99 K/mm3 (0.16-1.47); MONOCYTES PERCENT AUTO 11 % (4-13); Mean Corpuscular HGB 29.1 pg (26.0-34.0); Mean Corpuscular HGB Conc 32.3 g/dL (31.5-36.5); Mean Corpuscular Volume 90 fL (80-100); Mean Platelet Volume 10.6 fL (9.1-12.4); NEUTROPHILS ABSOLUTE AUTO 7.01 K/mm3 (1.96-9.15); NRBC ABSOLUTE 0.02 K/mm3 (0.00-0.02); NRBC Auto 0.2 /100 WBC (0.0-0.2); Platelet Count 260 K/mm3 (150-400); RDW Coefficient Variation 20.3 % (11.7-14.2); RDW Standard Deviation 65.3 fL (35.1-46.3); Red Blood Cell Count 3.88 M/mm3 (4.30-5.90); White Blood Cell Count 9.37 K/mm3 (4.00-11.30)
[2020-02-03 13:01] LABS: NEUTROPHILS PERCENT AUTO 7 % (41-73)
[2020-02-03 13:12] LABS: Bun/Creatinine Ratio 13.1 (12.0-20.0); Calcium, Blood 8.2 mg/dL (8.5-10.1); Creatinine, Blood 1.98 mg/dL (0.60-1.20); Potassium, Blood 3.9 mmol/L (3.5-5.5)
== END ==
LOC: LAB SHORT 12:52 → LAB EV 12:52
PROVIDERS: Physician Assistant Surgical
DX: M62.81 Muscle weakness (generalized) (principal)
CPT/HCPCS: 80048; 85025

== ENCOUNTER 2020-02-21 08:27 | Day surgery (SDC) | payer MEDICARE ==
[~2020-02-21] VITALS: Ht 167.6 cm; Wt 96.0 kg
[2020-02-21] MEDS ORDERED: Glipizide Xl2.5 MG PO (08:58)
[2020-02-21] MEDS ORDERED: COLACE100 MG PO (09:00)
--- NOTE | 2020-02-21 11:06 | NUR ---
Pt received from Phyllis Marcelo RN, Pt alert and oriented. Pt denies pain at this time. Right groin dressing opsite with closure no bleeding or hematoma noted. Pt supine with hob 5% bilat dp pulse 2+. Pt in A-fib, VSS. IV with 550 ml of NS rohan infusing into the Right A/C. Call light given. Dr. Callaway spoke with patient. Postive results given by DR. Callaway. Pt resting warm blankets and comfort measure given.
[2020-02-21] MEDS ORDERED: CLOP75 PO (11:45)
--- NOTE | 2020-02-21 12:16 | NUR ---
Sbar Marianne Finney RN reviewed site iv infused 100 ml ns.
--- NOTE | 2020-02-21 14:07 | NUR ---
PT SITTING ON EDGE OF BED, FEET DANGLING. RIGHT FEM SITE SOFT, WITHOUT HEMATOMA OR SWELLING.
--- NOTE | 2020-02-21 16:51 | NUR ---
DISCHARGE: PT REMAINED A&OX3 AND DENIED ANY PAIN DURING RECOVERY. R CECILY SITE REMAINED STABLE DURING [id number] HEMATOMA NOTED. IV DC'D WITH TIP IN TACT. PT ABLE TO DRESS SELF WITH LITTLE ASSISTANCE. PT AMBULATED TO RESTROOM WITH STEADY GAITE. DISCHARGE PAPERWORK GONE OVER WITH PT. PT VERBALLY STATED THE UNDERSTANDING OF THE DISHCARGE EDUCATION AND DENIED ANY QUESTIONS AT THIS TIME. PT WHELED OUT BY ESCORT.
== END 2020-02-21 23:46 | disposition home or self-care (01) ==
LOC: MHTC 08:27
DX: I70.1 Atherosclerosis of renal artery (principal); I10 Essential (primary) hypertension; I25.10 Atherosclerotic heart disease of native coronary artery without angina pectoris; E11.51 Type 2 diabetes mellitus with diabetic peripheral angiopathy without gangrene; I48.0 Paroxysmal atrial fibrillation; E78.5 Hyperlipidemia, unspecified; I12.9 Hypertensive chronic kidney disease with stage 1 through stage 4 chronic kidney disease, or unspecified chronic kidney disease; N18.9 Chronic kidney disease, unspecified; E66.9 Obesity, unspecified; Z68.37 Body mass index [BMI] 37.0-37.9, adult; Z87.891 Personal history of nicotine dependence; Z95.5 Presence of coronary angioplasty implant and graft; Z79.01 Long term (current) use of anticoagulants; Z79.84 Long term (current) use of oral hypoglycemic drugs; Z79.899 Other long term (current) drug therapy
CPT/HCPCS: 36252; 37236; 82947; 99152; 99153; A9270-GY; C1725; C1760; C1769; C1876; C1887; C1894; J1644; J2250; J3010; J7030; Q9967

== ENCOUNTER 2020-06-22 14:38 | Inpatient (IN) | payer MEDICARE ==
[~2020-06-22] VITALS: Ht 172.7 cm; Wt 89.0 kg
[~2020-06-22 14:38] MED LIST changes: -ALLO100 PO; -ATOR10 PO; +CLOP75 PO; +Glipizide Xl2.5 MG PO; -LOSA50 PO; -Metoprolol Tar100 MG PO; -VITAMIN D31000 UNIT PO; -WARF5 PO
[2020-06-22 15:21] LABS: BASOPHILS ABSOLUTE AUTO 0.02 K/mm3 (0.00-0.23); BASOPHILS PERCENT AUTO 0 % (0-2); EOSINOPHILS ABSOLUTE AUTO 0.04 K/mm3 (0.00-0.68); EOSINOPHILS PERCENT AUTO 0 % (0-6); Hematocrit 34.9 % (37.0-53.0); Hemoglobin 11.1 g/dL (13.5-17.5); IMMATURE GRAN ABSOLUTE AUTO 0.02 K/mm3 (0.00-0.10); IMMATURE GRAN PERCENT AUTO 0 % (0-1); LYMPHOCYTES ABSOLUTE AUTO 2.66 K/mm3 (0.84-5.20); LYMPHOCYTES PERCENT AUTO 30 % (21-46); MONOCYTES ABSOLUTE AUTO 0.89 K/mm3 (0.16-1.47); MONOCYTES PERCENT AUTO 10 % (4-13); Mean Corpuscular HGB 30.3 pg (26.0-34.0); Mean Corpuscular HGB Conc 31.8 g/dL (31.5-36.5); Mean Corpuscular Volume 95 fL (80-100); Mean Platelet Volume 10.2 fL (9.1-12.4); NEUTROPHILS ABSOLUTE AUTO 5.36 K/mm3 (1.96-9.15); NEUTROPHILS PERCENT AUTO 60 % (41-73); Platelet Count 245 K/mm3 (150-400); RDW Coefficient Variation 14.7 % (11.7-14.2); RDW Standard Deviation 51.8 fL (35.1-46.3); Red Blood Cell Count 3.66 M/mm3 (4.30-5.90); White Blood Cell Count 8.99 K/mm3 (4.00-11.30)
[2020-06-22 15:41] LABS: Albumin, Blood 3.2 g/dL (3.4-5.0); Albumin/Globulin Ratio 0.9 (0.8-1.8); Bilirubin, Total 0.3 mg/dL (0.1-1.0); Bun/Creatinine Ratio 27.7 (12.0-20.0); Calcium, Blood 8.9 mg/dL (8.5-10.1); Creatinine, Blood 1.37 mg/dL (0.60-1.20); Globulin, Blood 3.7 g/dL (2.2-4.0); Potassium, Blood 4.2 mmol/L (3.5-5.5); Total Protein, Blood 6.9 g/dL (6.4-8.2)
[2020-06-22] MEDS ORDERED: LOSARTAN POTAS100 MG PO (16:51)
[2020-06-22] MEDS ORDERED: AMLO5 PO (16:52)
[2020-06-22] MEDS ORDERED: ALLO100 PO (17:03)
[2020-06-22] MEDS ORDERED: ATOR10 PO (17:04)
[2020-06-22] MEDS ORDERED: Metoprolol Tar100 MG PO (17:05)
[2020-06-22] MEDS ORDERED: WARF5 PO (17:06)
[2020-06-22] MEDS ORDERED: VITAMIN D31000 UNIT PO (17:06)
[2020-06-22] MEDS ORDERED: COLACE100 MG PO (17:07)
[2020-06-22 17:09] LABS: Source, Urine Clean Catch
[2020-06-22] MEDS ORDERED: OMEP20ER PO (17:12)
[2020-06-22 17:18] LABS: Appearance, Urine Clear (Clear); Bilirubin, Urine Neg (Neg); Blood, Urine 1+ (Neg); Color, Urine Yellow (P-Yellow); Glucose Qualitative, Urine Neg (Neg); Ketones, Urine Neg (Neg); Leukocyte Esterase, Urine 2+ (Neg); Nitrite, Urine Neg (Neg); Protein, Urine Neg (Neg); Specific Gravity, Urine 1.015 (1.003-1.022); Urobilinogen, Urine NORM (Normal)
[2020-06-22 17:24] LABS: Bacteria Few /hpf; Red Blood Cells, Urine 0-2 /hpf (0-2); Squamous Epithelial Cells Rare /hpf (Few)
[2020-06-22] MEDS ORDERED: PIOG15 PO (17:24)
--- NOTE | 2020-06-22 19:00 | NUR ---
Patient arrived to room 229. Patient has colostomy that he reported to be 4 years old. Patient denies pain or nausea at this time. Patient NPO. Bowel tones hypoative throughout. Call light within patient reach.
[2020-06-23 04:48] LABS: BASOPHILS ABSOLUTE AUTO 0.02 K/mm3 (0.00-0.23); BASOPHILS PERCENT AUTO 0 % (0-2); EOSINOPHILS ABSOLUTE AUTO 0.05 K/mm3 (0.00-0.68); EOSINOPHILS PERCENT AUTO 1 % (0-6); Hematocrit 37.2 % (37.0-53.0); Hemoglobin 11.7 g/dL (13.5-17.5); IMMATURE GRAN ABSOLUTE AUTO 0.01 K/mm3 (0.00-0.10); IMMATURE GRAN PERCENT AUTO 0 % (0-1); LYMPHOCYTES ABSOLUTE AUTO 1.83 K/mm3 (0.84-5.20); LYMPHOCYTES PERCENT AUTO 25 % (21-46); MONOCYTES ABSOLUTE AUTO 0.79 K/mm3 (0.16-1.47); MONOCYTES PERCENT AUTO 11 % (4-13); Mean Corpuscular HGB 29.9 pg (26.0-34.0); Mean Corpuscular HGB Conc 31.5 g/dL (31.5-36.5); Mean Corpuscular Volume 95 fL (80-100); Mean Platelet Volume 10.2 fL (9.1-12.4); NEUTROPHILS ABSOLUTE AUTO 4.76 K/mm3 (1.96-9.15); NEUTROPHILS PERCENT AUTO 64 % (41-73); Platelet Count 228 K/mm3 (150-400); RDW Coefficient Variation 14.6 % (11.7-14.2); RDW Standard Deviation 50.3 fL (35.1-46.3); Red Blood Cell Count 3.91 M/mm3 (4.30-5.90); White Blood Cell Count 7.46 K/mm3 (4.00-11.30)
[2020-06-23 04:54] LABS: Alanine Aminotransfer (ALT/SGP 18 U/L (12-78); Albumin/Globulin Ratio 0.9 (0.8-1.8); Alk Phos 99 U/L (50-136); Anion Gap 6 mmol/L (6-16); Aspartate Aminotrans (AST/SGOT 13 U/L (12-37); Bilirubin, Total 0.5 mg/dL (0.1-1.0); Blood Urea Nitrogen 27 mg/dL (8-24); Bun/Creatinine Ratio 24.5 (12.0-20.0); CO2, Blood 25 mmol/L (21-32); Calcium, Blood 8.6 mg/dL (8.5-10.1); Chloride, Blood 109 mmol/L (98-108); Globulin, Blood 3.4 g/dL (2.2-4.0); Glomerular Filtration Rate >60 (60-); Glucose, Blood 104 mg/dL (70-99); Potassium, Blood 3.7 mmol/L (3.5-5.5); Sodium, Blood 140 mmol/L (136-145); Total Protein, Blood 6.4 g/dL (6.4-8.2)
--- NOTE | 2020-06-23 06:20 | NUR ---
PT VSS T/O NIGHT. PT REP PAIN IN MID-UPPER ABD, MED PER EMAR W/REP RELIEF. PT HAD NO C/O N/V, NO OUTPUT FROM OSTOMY. PT NPO PER ORDERS, IVF CONT. PT VOIDIONG CLEAR YELLOW URINE. PT UP INDEP TO SOB, DENIES DIZZINESS WHEN UP. AWAITING SURGICAL CONSULT. WILL MONITOR UNTIL REP GIVEN TO ONCOMING RN.
--- NOTE | 2020-06-23 16:01 | NUR ---
SHIFT SUMMARY PT HAS RESTED WELL THIS AFTERNOON. MEDICATED X1 THIS MORNING WITH IV FENTANYL FOR ABD PAIN. PT ALSO HAD X1 EPISODE OF EMESIS THIS MORNING, BUT NO N/V SINCE. PT MINIMALLY SIPPING ON WATER AND ICE CHIPS. PT HAVING SCANT LIQ BROWN STOOL FROM OSTOMY BAG WHICH HE MANAGES INDEPENDENTLY. IVF INFUSING PER ORDERS. PT UP TO RESTROOM WITH 1 SBA. CONT BOWEL REST. PT USES CALL LIGHT APPROPRIATELY.
[2020-06-23 17:17] LABS: BASOPHILS ABSOLUTE AUTO 0.01 K/mm3 (0.00-0.23); BASOPHILS PERCENT AUTO 0 % (0-2); EOSINOPHILS ABSOLUTE AUTO 0.01 K/mm3 (0.00-0.68); EOSINOPHILS PERCENT AUTO 0 % (0-6); Hematocrit 38.1 % (37.0-53.0); Hemoglobin 12.1 g/dL (13.5-17.5); IMMATURE GRAN ABSOLUTE AUTO 0.02 K/mm3 (0.00-0.10); IMMATURE GRAN PERCENT AUTO 0 % (0-1); LYMPHOCYTES ABSOLUTE AUTO 1.61 K/mm3 (0.84-5.20); LYMPHOCYTES PERCENT AUTO 18 % (21-46); MONOCYTES ABSOLUTE AUTO 0.81 K/mm3 (0.16-1.47); MONOCYTES PERCENT AUTO 9 % (4-13); Mean Corpuscular HGB 30.4 pg (26.0-34.0); Mean Corpuscular HGB Conc 31.8 g/dL (31.5-36.5); Mean Corpuscular Volume 96 fL (80-100); NEUTROPHILS ABSOLUTE AUTO 6.46 K/mm3 (1.96-9.15); NEUTROPHILS PERCENT AUTO 73 % (41-73); Platelet Count 244 K/mm3 (150-400); RDW Coefficient Variation 14.6 % (11.7-14.2); RDW Standard Deviation 51.5 fL (35.1-46.3); Red Blood Cell Count 3.98 M/mm3 (4.30-5.90); White Blood Cell Count 8.92 K/mm3 (4.00-11.30)
[2020-06-23 17:46] LABS: Alanine Aminotransfer (ALT/SGP 15 U/L (12-78); Albumin, Blood 3.1 g/dL (3.4-5.0); Albumin/Globulin Ratio 0.9 (0.8-1.8); Alk Phos 105 U/L (50-136); Anion Gap 7 mmol/L (6-16); Aspartate Aminotrans (AST/SGOT 17 U/L (12-37); Bilirubin, Total 0.5 mg/dL (0.1-1.0); Blood Urea Nitrogen 26 mg/dL (8-24); Bun/Creatinine Ratio 25.2 (12.0-20.0); CO2, Blood 25 mmol/L (21-32); Calcium, Blood 8.7 mg/dL (8.5-10.1); Chloride, Blood 108 mmol/L (98-108); Creatinine, Blood 1.03 mg/dL (0.60-1.20); Globulin, Blood 3.6 g/dL (2.2-4.0); Glomerular Filtration Rate >60 (60-); Glucose, Blood 101 mg/dL (70-99); Sodium, Blood 140 mmol/L (136-145); Total Protein, Blood 6.7 g/dL (6.4-8.2)
--- NOTE | 2020-06-24 04:18 | NUR ---
SHIFT SUMMARY: PT A&O X4. VSS. BOWEL REST WITH SIPS+CHIPS. GABINO SMALL AMOUNTS OF PO. DENIES N/V. PT REPORTS OSTOMY PRODUCING SMALL AMOUNTS OF FLATUS. PT HAD LARGE BM THIS SHIFT OF 500CC BROWN STOOL. DENIES PAIN. CBGS STABLE WITHOUT NEED FOR COVERAGE. REPORTS INTERMITTENT GAS PAINS, HOWEVER DENIES NEED FOR PAIN MEDICATION. FLUIDS INFUSING PER EMAR. VOIDING WELL.
[2020-06-24 05:32] LABS: BASOPHILS PERCENT AUTO 0 % (0-2); EOSINOPHILS ABSOLUTE AUTO 0.04 K/mm3 (0.00-0.68); EOSINOPHILS PERCENT AUTO 1 % (0-6); Hematocrit 33.8 % (37.0-53.0); Hemoglobin 10.6 g/dL (13.5-17.5); IMMATURE GRAN ABSOLUTE AUTO 0.01 K/mm3 (0.00-0.10); IMMATURE GRAN PERCENT AUTO 0 % (0-1); LYMPHOCYTES ABSOLUTE AUTO 1.56 K/mm3 (0.84-5.20); LYMPHOCYTES PERCENT AUTO 27 % (21-46); MONOCYTES ABSOLUTE AUTO 0.74 K/mm3 (0.16-1.47); MONOCYTES PERCENT AUTO 13 % (4-13); Mean Corpuscular HGB 30.1 pg (26.0-34.0); Mean Corpuscular HGB Conc 31.4 g/dL (31.5-36.5); Mean Corpuscular Volume 96 fL (80-100); Mean Platelet Volume 10.3 fL (9.1-12.4); NEUTROPHILS ABSOLUTE AUTO 3.51 K/mm3 (1.96-9.15); NEUTROPHILS PERCENT AUTO 60 % (41-73); Platelet Count 230 K/mm3 (150-400); RDW Coefficient Variation 14.6 % (11.7-14.2); RDW Standard Deviation 51.2 fL (35.1-46.3); Red Blood Cell Count 3.52 M/mm3 (4.30-5.90); White Blood Cell Count 5.86 K/mm3 (4.00-11.30)
[2020-06-24 05:51] LABS: Alanine Aminotransfer (ALT/SGP 12 U/L (12-78); Albumin, Blood 2.8 g/dL (3.4-5.0); Albumin/Globulin Ratio 0.9 (0.8-1.8); Alk Phos 92 U/L (50-136); Anion Gap 6 mmol/L (6-16); Aspartate Aminotrans (AST/SGOT 11 U/L (12-37); Bilirubin, Total 0.5 mg/dL (0.1-1.0); Blood Urea Nitrogen 23 mg/dL (8-24); Bun/Creatinine Ratio 21.1 (12.0-20.0); CO2, Blood 25 mmol/L (21-32); Calcium, Blood 8.4 mg/dL (8.5-10.1); Chloride, Blood 111 mmol/L (98-108); Creatinine, Blood 1.09 mg/dL (0.60-1.20); Globulin, Blood 3.2 g/dL (2.2-4.0); Glomerular Filtration Rate >60 (60-); Glucose, Blood 81 mg/dL (70-99); Potassium, Blood 3.8 mmol/L (3.5-5.5); Sodium, Blood 142 mmol/L (136-145)
[2020-06-24] MEDS ORDERED: VITAMIN D31000 UNI1 PO (12:41)
[2020-06-24] MEDS ORDERED: GAVILAX17 GM PO (12:42)
--- NOTE | 2020-06-24 13:27 | NUR ---
DISCHARGE PT EDUCATED ON AND RECEIVED PRINTED DISCHARGE INSTRUCTIONS AND VERBALIZED AN UNDERSTANDING. IV DC'D. [facility] TO CALL PT FOR F/U APPT PER [employer] ARCHIVAL STUDIES PROFESSOR. PT ESCORTED OUT VIA W/C WITH ALL PERSONAL BELONGINGS.
[2020-07-10] MEDS ORDERED: Coumadin2 MG PO (08:02)
[2020-07-10] MEDS ORDERED: GLIP10ER PO (08:07)
[2020-07-10] MEDS ORDERED: OXYC5 PO (08:08)
[2020-07-10] MEDS ORDERED: OMEPRAZOLE20 M2 PO (08:08)
[2020-07-10] MEDS ORDERED: FERROUS SULFAT325 M3 PO (08:09)
== END 2020-06-24 13:29 | disposition home or self-care (01) | DRG 389 ==
LOC: ER 14:38 → SURS 17:00
PROVIDERS: Emergency Medicine; Family Medicine; Physician Assistant; ADMIT Internal Medicine
DX: K56.609 Unspecified intestinal obstruction, unspecified as to partial versus complete obstruction (principal); I13.0 Hypertensive heart and chronic kidney disease with heart failure and stage 1 through stage 4 chronic kidney disease, or unspecified chronic kidney disease; I48.0 Paroxysmal atrial fibrillation; I50.9 Heart failure, unspecified; E78.5 Hyperlipidemia, unspecified; M19.90 Unspecified osteoarthritis, unspecified site; E11.22 Type 2 diabetes mellitus with diabetic chronic kidney disease; N18.3 Chronic kidney disease, stage 3 (moderate); G47.33 Obstructive sleep apnea (adult) (pediatric); I25.10 Atherosclerotic heart disease of native coronary artery without angina pectoris; I25.2 Old myocardial infarction; Z95.5 Presence of coronary angioplasty implant and graft; Z79.01 Long term (current) use of anticoagulants; Z87.891 Personal history of nicotine dependence; Z85.048 Personal history of other malignant neoplasm of rectum, rectosigmoid junction, and anus; Z87.11 Personal history of peptic ulcer disease
CPT/HCPCS: 36415; 74176; 80048; 80053; 81001; 82947; 83690; 85025; 85610; 87086; 96374; 96375; 99284-25; A9270-GY; J2270; J3010; J7030; U0002

== ENCOUNTER 2020-11-14 08:16 | Inpatient (IN) | payer MEDICARE ==
[~2020-11-14] VITALS: Ht 172.7 cm; Wt 86.9 kg
[~2020-11-14 08:16] MED LIST changes: +ALLO100 PO; +AMLO5 PO; +ATOR10 PO; +COLACE100 MG PO; +Coumadin2 MG PO; +FERROUS SULFAT325 M3 PO; +GAVILAX17 GM PO; +LOSARTAN POTAS100 MG PO; +Metoprolol Tar100 MG PO; +OMEP20ER PO; +OMEPRAZOLE20 M2 PO; +OXYC5 PO; +VITAMIN D31000 UNI1 PO; +VITAMIN D31000 UNIT PO; +WARF5 PO
[2020-11-14] MEDS ORDERED: OMEP20ER PO (08:26)
[2020-11-14 09:04] LABS: BASOPHILS ABSOLUTE AUTO 0.02 K/mm3 (0.00-0.23); BASOPHILS PERCENT AUTO 0 % (0-2); EOSINOPHILS ABSOLUTE AUTO 0.02 K/mm3 (0.00-0.68); EOSINOPHILS PERCENT AUTO 0 % (0-6); Hemoglobin 11.6 g/dL (13.5-17.5); IMMATURE GRAN ABSOLUTE AUTO 0.02 K/mm3 (0.00-0.10); IMMATURE GRAN PERCENT AUTO 0 % (0-1); LYMPHOCYTES ABSOLUTE AUTO 1.12 K/mm3 (0.84-5.20); LYMPHOCYTES PERCENT AUTO 12 % (21-46); MONOCYTES PERCENT AUTO 7 % (4-13); Mean Corpuscular HGB 30.4 pg (26.0-34.0); Mean Corpuscular HGB Conc 32.2 g/dL (31.5-36.5); Mean Corpuscular Volume 95 fL (80-100); Mean Platelet Volume 10.6 fL (9.1-12.4); NEUTROPHILS ABSOLUTE AUTO 7.65 K/mm3 (1.96-9.15); NEUTROPHILS PERCENT AUTO 80 % (41-73); Platelet Count 221 K/mm3 (150-400); RDW Coefficient Variation 15.6 % (11.7-14.2); RDW Standard Deviation 54.3 fL (35.1-46.3); Red Blood Cell Count 3.81 M/mm3 (4.30-5.90); White Blood Cell Count 9.53 K/mm3 (4.00-11.30)
[2020-11-14 09:21] LABS: Alanine Aminotransfer (ALT/SGP 15 U/L (12-78); Albumin, Blood 3.2 g/dL (3.4-5.0); Albumin/Globulin Ratio 0.9 (0.8-1.8); Alk Phos 123 U/L (50-136); Anion Gap 6 mmol/L (6-16); Aspartate Aminotrans (AST/SGOT 17 U/L (12-37); Bilirubin, Total 0.5 mg/dL (0.1-1.0); Blood Urea Nitrogen 24 mg/dL (8-24); Bun/Creatinine Ratio 21.2 (12.0-20.0); CO2, Blood 25 mmol/L (21-32); Chloride, Blood 111 mmol/L (98-108); Creatinine, Blood 1.13 mg/dL (0.60-1.20); Globulin, Blood 3.7 g/dL (2.2-4.0); Glomerular Filtration Rate >60 (60-); Glucose, Blood 138 mg/dL (70-99); Potassium, Blood 3.4 mmol/L (3.5-5.5); Sodium, Blood 142 mmol/L (136-145); Total Protein, Blood 6.9 g/dL (6.4-8.2)
[2020-11-14 12:03] LABS: International Normalized Ratio 1.96; Prothrombin Time Results 20.2 Sec (9.7-11.5)
[2020-11-14] MEDS ORDERED: Coumadin2 MG PO (12:21)
--- NOTE | 2020-11-14 18:45 | NUR ---
0560 RECEIVED PT TO RM 363 VIA GINGERRCAROL FROM ER. PT ADMITTED FOR SBO. RECEIVED REPORT FROM MERRILL COLON. PT HERE WITH HX OF MULTIPLE SBO'S; LLQ COLOSTOMY IN PLACE. PT NOT EATING OR DRINKING PAST FEW DAYS R/T MID-EPIGASTRIC PAIN. PER REPORT, CT SHOWING SBO, BUT PT REFUSING NGT. PT NPO AT THIS TIME, ALLOWING BOWEL TO REST. PT MEDICATED FOR PAIN AND NAUSEA IN ER; PT DENIED PAIN AND NAUSEA TO PRESENT SINCE COMING TO UNIT. PER REPORT, PT USING URINAL AT BS WITH 1P SBA IN ER. URINAL GIVEN. PT REPORTED FALLING IN THE LAST 2-3 WEEKS. REPORTS USES A CANE FOR LONG DISTANCES. PT INSTRUCTED TO USE CALL LT FOR ASSIST. SCABS TO BUE'S D/T PT'S DOG NAILS. PT IS A&O, PLEASANT AND CO-OP. NO FURTHER NEEDS AT THIS TIME.
--- NOTE | 2020-11-15 04:51 | NUR ---
SUMMARY PT HAD NO ISSUES NOTED. PT DENIES INCREASED DISCOMFORT AND REMAINED COMFORTABLE T/O SHIFT. PT DID PRODUCE SOME STOOL THIS SHIFT. PT HAS SLEPT FOR MOST OF SHIFT W/ OUT COMPLAINT. PT CURRENTLY SLEEPING AND BREATHING EASY. CALL LIGHT IN REACH.
[2020-11-15 04:57] LABS: BASOPHILS ABSOLUTE AUTO 0.01 K/mm3 (0.00-0.23); BASOPHILS PERCENT AUTO 0 % (0-2); EOSINOPHILS ABSOLUTE AUTO 0.08 K/mm3 (0.00-0.68); EOSINOPHILS PERCENT AUTO 1 % (0-6); Hematocrit 33.1 % (37.0-53.0); Hemoglobin 10.4 g/dL (13.5-17.5); IMMATURE GRAN ABSOLUTE AUTO 0.01 K/mm3 (0.00-0.10); IMMATURE GRAN PERCENT AUTO 0 % (0-1); LYMPHOCYTES ABSOLUTE AUTO 1.31 K/mm3 (0.84-5.20); LYMPHOCYTES PERCENT AUTO 23 % (21-46); MONOCYTES ABSOLUTE AUTO 0.87 K/mm3 (0.16-1.47); MONOCYTES PERCENT AUTO 15 % (4-13); Mean Corpuscular HGB 29.8 pg (26.0-34.0); Mean Corpuscular HGB Conc 31.4 g/dL (31.5-36.5); Mean Corpuscular Volume 95 fL (80-100); Mean Platelet Volume 10.5 fL (9.1-12.4); NEUTROPHILS ABSOLUTE AUTO 3.37 K/mm3 (1.96-9.15); NEUTROPHILS PERCENT AUTO 60 % (41-73); Platelet Count 188 K/mm3 (150-400); RDW Coefficient Variation 15.9 % (11.7-14.2); RDW Standard Deviation 54.7 fL (35.1-46.3); Red Blood Cell Count 3.49 M/mm3 (4.30-5.90); White Blood Cell Count 5.65 K/mm3 (4.00-11.30)
[2020-11-15 05:18] LABS: Anion Gap 5 mmol/L (6-16); Blood Urea Nitrogen 24 mg/dL (8-24); Bun/Creatinine Ratio 21.2 (12.0-20.0); CO2, Blood 26 mmol/L (21-32); Calcium, Blood 8.5 mg/dL (8.5-10.1); Chloride, Blood 114 mmol/L (98-108); Creatinine, Blood 1.13 mg/dL (0.60-1.20); Glomerular Filtration Rate >60 (60-); Glucose, Blood 80 mg/dL (70-99); Potassium, Blood 3.6 mmol/L (3.5-5.5); Sodium, Blood 145 mmol/L (136-145)
--- NOTE | 2020-11-15 11:25 | NUR ---
AM ASSESSMENT PT STATE PASSING SOFT SOFT BROWN STOOL VIA COLOSTOMY, STARTED APPROX 1999 LAST NOC. STATE NO ABDOMINAL PAIN, NO DISCOMFORT, FEELING IMPROVED. DR BARROSO NOTIFIED, IN TO ROUND/ASSESS. ORDER FULL LIQUID DIET. PT TOLERATING WELL @ THIS TIME. STEAM FITTER ASSIST PT w COLOSTOMY EMPTYING.
--- NOTE | 2020-11-15 18:00 | NUR ---
SUMMARY PT STATE NO ABDOMINAL PAIN OR DISCOMFORT T/O DAY. HE HAS BEEN PASSING SOFT STOOL VIA COLOSTOMY INTERMITTANTLY TODAY. STATE FEELING IMPROVED. DR BARROSO ADVANCE DIET TO FULL LIQUID, PT HAS TOLERATED WELL. HE IS A/O X4, UP IND IN ROOM. PLEASANT/COOPERATIVE. VSS.
--- NOTE | 2020-11-16 05:22 | NUR ---
SUMMARY PT HAD NO ISSUES NOTED. PT HAD NOTED BM'S. PT DENIES ANY PAIN OR DISCOMFORT. PT SLEPT OFF AND ON T/O SHIFT. PT CURRENTLY AWAKE AND RESTING COMFORTABLY. CALL LIGHT IN REACH.
--- NOTE | 2020-11-16 14:51 | NUR ---
DISCHARGE AM ASSESSMENT PT STATE NO DISCOMFORT OR ABDOMINAL PAIN, STATE CONTINUES TO PRODUCE STOOL VIA COLOSTOMY, LOOSE BROWN, STATE APPEARS NORMAL. STATE HOPEFUL FOR D/C HOME TODAY. DR BARROSO ROUND ON HIM AFTER LUNCH, STATE OK TO D/C HOME, PROVIDE ORDERS. IV D/C INTACT, D/C INSTRUCT REVIEWED. W/C ESCORT FROM HOSP PROVIDED. PT IS PLEASANT/APPRECIATIVE, STATE SATISFACTION.
== END 2020-11-16 13:30 | disposition home or self-care (01) | DRG 389 ==
LOC: ER 08:16 → MEDS 14:24
PROVIDERS: Physician Assistant; ADMIT Internal Medicine
DX: K56.600 Partial intestinal obstruction, unspecified as to cause (principal); I13.0 Hypertensive heart and chronic kidney disease with heart failure and stage 1 through stage 4 chronic kidney disease, or unspecified chronic kidney disease; I50.30 Unspecified diastolic (congestive) heart failure; G47.33 Obstructive sleep apnea (adult) (pediatric); I25.10 Atherosclerotic heart disease of native coronary artery without angina pectoris; E78.5 Hyperlipidemia, unspecified; I48.0 Paroxysmal atrial fibrillation; E11.22 Type 2 diabetes mellitus with diabetic chronic kidney disease; N18.30 Chronic kidney disease, stage 3 unspecified; M10.9 Gout, unspecified; K21.9 Gastro-esophageal reflux disease without esophagitis; M19.90 Unspecified osteoarthritis, unspecified site; Z93.3 Colostomy status; Z85.038 Personal history of other malignant neoplasm of large intestine; I25.2 Old myocardial infarction; Z95.5 Presence of coronary angioplasty implant and graft; Z87.891 Personal history of nicotine dependence; Z79.01 Long term (current) use of anticoagulants; Z79.84 Long term (current) use of oral hypoglycemic drugs
CPT/HCPCS: 36415; 71046; 74177; 80048; 80053; 82947; 83690; 85025; 85610; 96361; 96374; 96375; 99284-25; A9270; A9270-GY; J1170; J1650; J2405; J7030; Q9967

== ENCOUNTER 2021-07-24 08:10 | Inpatient (IN) | payer MEDICARE ==
[~2021-07-24] VITALS: Ht 172.7 cm; Wt 88.5 kg
[2021-07-24 09:17] LABS: BASOPHILS ABSOLUTE AUTO 0.01 K/mm3 (0.00-0.23); BASOPHILS PERCENT AUTO 0 % (0-2); EOSINOPHILS ABSOLUTE AUTO 0.01 K/mm3 (0.00-0.68); EOSINOPHILS PERCENT AUTO 0 % (0-6); Hematocrit 36.1 % (37.0-53.0); Hemoglobin 11.9 g/dL (13.5-17.5); IMMATURE GRAN ABSOLUTE AUTO 0.03 K/mm3 (0.00-0.10); IMMATURE GRAN PERCENT AUTO 0 % (0-1); LYMPHOCYTES ABSOLUTE AUTO 0.72 K/mm3 (0.84-5.20); LYMPHOCYTES PERCENT AUTO 7 % (21-46); MONOCYTES ABSOLUTE AUTO 0.64 K/mm3 (0.16-1.47); MONOCYTES PERCENT AUTO 6 % (4-13); Mean Corpuscular HGB 31.6 pg (26.0-34.0); Mean Corpuscular Volume 96 fL (80-100); Mean Platelet Volume 10.7 fL (9.1-12.4); NEUTROPHILS ABSOLUTE AUTO 9.75 K/mm3 (1.96-9.15); NEUTROPHILS PERCENT AUTO 87 % (41-73); Platelet Count 202 K/mm3 (150-400); RDW Coefficient Variation 14.4 % (11.7-14.2); RDW Standard Deviation 50.7 fL (35.1-46.3); Red Blood Cell Count 3.77 M/mm3 (4.30-5.90); White Blood Cell Count 11.16 K/mm3 (4.00-11.30)
[2021-07-24 09:35] LABS: Alanine Aminotransfer (ALT/SGP 21 U/L (12-78); Albumin, Blood 3.6 g/dL (3.4-5.0); Alk Phos 111 U/L (50-136); Anion Gap 7 mmol/L (6-16); Aspartate Aminotrans (AST/SGOT 14 U/L (12-37); Bilirubin, Total 0.5 mg/dL (0.1-1.0); Blood Urea Nitrogen 22 mg/dL (8-24); Bun/Creatinine Ratio 22.9 (12.0-20.0); CO2, Blood 24 mmol/L (21-32); Calcium, Blood 8.7 mg/dL (8.5-10.1); Chloride, Blood 111 mmol/L (98-108); Creatinine, Blood 0.96 mg/dL (0.60-1.20); Globulin, Blood 3.7 g/dL (2.2-4.0); Glomerular Filtration Rate >60 (60-); Glucose, Blood 175 mg/dL (70-99); Potassium, Blood 3.6 mmol/L (3.5-5.5); Sodium, Blood 142 mmol/L (136-145); Total Protein, Blood 7.3 g/dL (6.4-8.2); Troponin I <0.015 ng/mL (0.000-0.040)
[2021-07-24 09:57] LABS: International Normalized Ratio 2.85
[2021-07-24 12:19] LABS: SARS-Cov-2 (COVID-19) PCR, MMC NEGATIVE (NEGATIVE)
--- NOTE | 2021-07-24 17:36 | NUR ---
pt denies nausea or pain, states he feels better from when admitted. ng with 300 ml sludgy bright yellow output. tele shows a fibb with bbb and pvc's
--- NOTE | 2021-07-25 03:47 | NUR ---
[facility] NOTIFIED THIS RN OF AN 8 BEAT RUN OF V-TACH. PT RESTING QUIETLY WITH EYES CLOSED AND EVEN, UNLABORED RESPIRATIONS. ON-CALL PHYSICIAN NOTIFIED, NO NEW ORDERS AT THIS TIME.
[2021-07-25 05:52] LABS: BASOPHILS ABSOLUTE AUTO 0.01 K/mm3 (0.00-0.23); BASOPHILS PERCENT AUTO 0 % (0-2); EOSINOPHILS ABSOLUTE AUTO 0.05 K/mm3 (0.00-0.68); EOSINOPHILS PERCENT AUTO 1 % (0-6); Hematocrit 33.9 % (37.0-53.0); Hemoglobin 11.1 g/dL (13.5-17.5); IMMATURE GRAN ABSOLUTE AUTO 0.01 K/mm3 (0.00-0.10); IMMATURE GRAN PERCENT AUTO 0 % (0-1); LYMPHOCYTES ABSOLUTE AUTO 1.21 K/mm3 (0.84-5.20); LYMPHOCYTES PERCENT AUTO 17 % (21-46); MONOCYTES ABSOLUTE AUTO 0.92 K/mm3 (0.16-1.47); MONOCYTES PERCENT AUTO 13 % (4-13); Mean Corpuscular HGB 31.9 pg (26.0-34.0); Mean Corpuscular HGB Conc 32.7 g/dL (31.5-36.5); Mean Corpuscular Volume 97 fL (80-100); Mean Platelet Volume 10.6 fL (9.1-12.4); NEUTROPHILS ABSOLUTE AUTO 5.14 K/mm3 (1.96-9.15); NEUTROPHILS PERCENT AUTO 70 % (41-73); Platelet Count 190 K/mm3 (150-400); RDW Coefficient Variation 14.8 % (11.7-14.2); RDW Standard Deviation 53.5 fL (35.1-46.3); Red Blood Cell Count 3.48 M/mm3 (4.30-5.90); White Blood Cell Count 7.34 K/mm3 (4.00-11.30)
[2021-07-25 06:23] LABS: Alanine Aminotransfer (ALT/SGP 16 U/L (12-78); Albumin/Globulin Ratio 0.9 (0.8-1.8); Alk Phos 90 U/L (50-136); Anion Gap 7 mmol/L (6-16); Aspartate Aminotrans (AST/SGOT 14 U/L (12-37); Bilirubin, Total 0.6 mg/dL (0.1-1.0); Blood Urea Nitrogen 19 mg/dL (8-24); Bun/Creatinine Ratio 18.6 (12.0-20.0); CO2, Blood 23 mmol/L (21-32); Calcium, Blood 7.6 mg/dL (8.5-10.1); Chloride, Blood 115 mmol/L (98-108); Creatinine, Blood 1.02 mg/dL (0.60-1.20); Globulin, Blood 3.3 g/dL (2.2-4.0); Glomerular Filtration Rate >60 (60-); Glucose, Blood 104 mg/dL (70-99); Potassium, Blood 3.6 mmol/L (3.5-5.5); Sodium, Blood 145 mmol/L (136-145); Total Protein, Blood 6.3 g/dL (6.4-8.2)
--- NOTE | 2021-07-25 07:49 | NUR ---
SHIFT SUMMARY: RAY IS A&OX4. VSS, NO ACUTE EVENTS OVERNIGHT. HE REPORTS PASSING GAS AND A SMALL AMOUNT OF STOOL THROUGH HIS OSTOMY OVERNIGHT. HE IS A ONE PERSON ASSIST TO STAND AND USE THE URINAL. NG TO LIS, IV PATENT. HE HAS DENIED THE NEED FOR PAIN MEDICATION. HE MANAGES THE OSTOMY INDEPENDENTLY. HE IS LYING IN BED WITH THE CALL LIGHT IN REACH. REPORT GIVEN TO DAY SHIFT RN.
--- NOTE | 2021-07-25 16:28 | NUR ---
TELEPHONE CALL TO HOSPITALIST Bc [facility] TELE 8 RUN V TACH/COUPLET PVCS. NO NEW ORDERS RECEIVED.
--- NOTE | 2021-07-25 17:36 | NUR ---
SHIFT SUMMARY PT A&OX4, VSS/RA/TELE SR 86, WITH RUNS OF 8 VTACH AND COUPLET PVCS (DR AWARE). NG CLAMPED, GABINO CL DIET. COLOSTOMY EMPTIED 2X WITH BROWN,FORMED BOWEL OUT. VOIDING WELL/URINAL. AMB INDEPENDENTLY IN ROOM/HALLWAY AND UP TO CHAIR. IVF @ 125 MLS/HR. WILL REPORT TO ONCOMING BURKE RN.
--- NOTE | 2021-07-26 05:38 | NUR ---
SHIFT SUMMARY: RAY IS A&OX4. HE DID CONVERT BACK TO A-FIB THIS SHIFT, COUMADIN RESTARTED, IV METOPROLOL GIVEN X 1. HE REMAINS ASYMPTOMATIC. HE HAS PASSED A SIGNIFICANT AMOUNT OF STOOL THROUGH HIS OSTOMY THIS SHIFT, NO DIFFICULTIES URINATING. HE IS INDEPENDENT IN THE ROOM, NO IV ACCESS AT THIS TIME. HE STATES HE HOPES TO BE DISCHARGED HOME TODAY, FEELS THAT HIS BOWEL FUNCTION HAS RETURNED TO BASELINE. HE IS SITTING UP AT THE SIDE OF THE BED WITH THE CALL LIGHT IN REACH. WILL REPORT TO DAY SHIFT RN.
[2021-07-26 06:06] LABS: International Normalized Ratio 2.04; Prothrombin Time Results 21.2 Sec (9.7-11.5)
--- NOTE | 2021-07-26 09:43 | NUR ---
DISCHARGE PT IS A/O X4, IND IN ROOM. TOLERATING PO INTAKE, VOIDING, AND HAVING OSTOMY OUTPUT. PT DENIES PAIN AND NAUSEA. PT REPORTS HE FEELS BACK TO BASELINE. DC INSTRUCTIONS REVIEWED; PT REPORTS NO QUESTIONS OR CONCERNS. INSTRUCTIONS SENT HOME WITH PT. NO NEW SCRIPTS. NO IV IN PLACE. PT DC'D AT 0945, GIVEN WHEELCHAIR RIDE TO VEHICLE WHERE FRIEND IS PICKING HIM UP.
== END 2021-07-26 09:45 | disposition home or self-care (01) | DRG 389 ==
LOC: ER 08:10 → ERHOLD 12:47 → SURS 12:47
PROVIDERS: Emergency Medicine; Pharmacist; ADMIT Family Medicine
PROC: 0DP0XUZ Removal of Feeding Device from Upper Intestinal Tract, External Approach (ICD-10-PCS; principal; 2021-07-26)
DX: K56.51 Intestinal adhesions [bands], with partial obstruction (principal); I50.32 Chronic diastolic (congestive) heart failure; I13.0 Hypertensive heart and chronic kidney disease with heart failure and stage 1 through stage 4 chronic kidney disease, or unspecified chronic kidney disease; Z20.822 Contact with and (suspected) exposure to COVID-19; E11.22 Type 2 diabetes mellitus with diabetic chronic kidney disease; N18.30 Chronic kidney disease, stage 3 unspecified; I25.10 Atherosclerotic heart disease of native coronary artery without angina pectoris; Z95.5 Presence of coronary angioplasty implant and graft; I25.2 Old myocardial infarction; Z90.89 Acquired absence of other organs; Z88.8 Allergy status to other drugs, medicaments and biological substances; Z90.49 Acquired absence of other specified parts of digestive tract; K21.9 Gastro-esophageal reflux disease without esophagitis; I48.91 Unspecified atrial fibrillation; Z85.038 Personal history of other malignant neoplasm of large intestine; Z98.890 Other specified postprocedural states; Z87.891 Personal history of nicotine dependence; G47.33 Obstructive sleep apnea (adult) (pediatric); I48.0 Paroxysmal atrial fibrillation; Z96.612 Presence of left artificial shoulder joint; Z79.899 Other long term (current) drug therapy; I49.3 Ventricular premature depolarization
CPT/HCPCS: 36415; 71046; 74177; 80053; 82947; 83690; 84484; 85025; 85610; 93005; 93010; 96374-59; 99285-25; A9270; J1650; J1815; J2405; J7030; Q9967; U0004

== ENCOUNTER → 2022-02-10 | Outpatient (CLI) | payer MEDICARE ==
[2022-02-10 18:25] LABS: BASOPHILS ABSOLUTE AUTO 0.02 K/mm3 (0.00-0.23); BASOPHILS PERCENT AUTO 0 % (0-2); EOSINOPHILS ABSOLUTE AUTO 0.14 K/mm3 (0.00-0.68); EOSINOPHILS PERCENT AUTO 2 % (0-6); Hematocrit 33.1 % (37.0-53.0); IMMATURE GRAN ABSOLUTE AUTO 0.04 K/mm3 (0.00-0.10); IMMATURE GRAN PERCENT AUTO 1 % (0-1); LYMPHOCYTES ABSOLUTE AUTO 1.61 K/mm3 (0.84-5.20); LYMPHOCYTES PERCENT AUTO 22 % (21-46); MONOCYTES ABSOLUTE AUTO 0.71 K/mm3 (0.16-1.47); MONOCYTES PERCENT AUTO 10 % (4-13); Mean Corpuscular HGB 32.1 pg (26.0-34.0); Mean Corpuscular HGB Conc 33.2 g/dL (31.5-36.5); Mean Corpuscular Volume 97 fL (80-100); Mean Platelet Volume 10.2 fL (9.1-12.4); NEUTROPHILS ABSOLUTE AUTO 4.72 K/mm3 (1.96-9.15); NEUTROPHILS PERCENT AUTO 65 % (41-73); Platelet Count 209 K/mm3 (150-400); RDW Coefficient Variation 14.5 % (11.7-14.2); RDW Standard Deviation 50.6 fL (35.1-46.3); Red Blood Cell Count 3.43 M/mm3 (4.30-5.90); White Blood Cell Count 7.24 K/mm3 (4.00-11.30)
[2022-02-10 18:42] LABS: Albumin, Blood 3.3 g/dL (3.4-5.0); Bilirubin, Total 0.3 mg/dL (0.1-1.0); Bun/Creatinine Ratio 29.8 (12.0-20.0); Calcium, Blood 8.7 mg/dL (8.5-10.1); Creatinine, Blood 1.24 mg/dL (0.60-1.20); Globulin, Blood 3.4 g/dL (2.2-4.0); Potassium, Blood 3.6 mmol/L (3.5-5.5); Total Protein, Blood 6.7 g/dL (6.4-8.2)
== END ==
LOC: LAB SHORT 18:22
PROVIDERS: Physician Assistant
DX: L08.9 Local infection of the skin and subcutaneous tissue, unspecified (principal); R07.9 Chest pain, unspecified; Z79.01 Long term (current) use of anticoagulants
CPT/HCPCS: 80053; 84484; 85025; 87040

== ENCOUNTER → 2022-09-28 | Outpatient (CLI) | payer MEDICARE | LOC: LAB SHORT 07:09 → PLD 07:09 | DX: C07 Malignant neoplasm of parotid gland (principal) | CPT/HCPCS: 88173 ==

== ENCOUNTER 2022-10-19 09:00 | Day surgery (SDC) | payer MEDICARE | END 2022-10-19 14:35 | disposition home or self-care (01) | DX: C85.11 Unspecified B-cell lymphoma, lymph nodes of head, face, and neck (principal); I48.91 Unspecified atrial fibrillation; Z79.01 Long term (current) use of anticoagulants; I25.10 Atherosclerotic heart disease of native coronary artery without angina pectoris; G47.33 Obstructive sleep apnea (adult) (pediatric); Z87.891 Personal history of nicotine dependence; K21.9 Gastro-esophageal reflux disease without esophagitis; E11.9 Type 2 diabetes mellitus without complications; I25.2 Old myocardial infarction; E11.22 Type 2 diabetes mellitus with diabetic chronic kidney disease; I12.9 Hypertensive chronic kidney disease with stage 1 through stage 4 chronic kidney disease, or unspecified chronic kidney disease; N18.30 Chronic kidney disease, stage 3 unspecified; Z79.899 Other long term (current) drug therapy ==

== ENCOUNTER 2022-11-22 05:45 | Day surgery (SDC) | payer MEDICARE ==
[~2022-11-22] VITALS: Ht 172.7 cm; Wt 96.7 kg
--- NOTE | 2022-11-22 06:55 | NUR ---
History, Chart, Medications and Allergies reviewed before start of procedure. Patient confirms NPO status and agrees with scheduled surgery. Pre-Op teaching done. Pt verbalizes understanding. PT REPORTS SCAB ON CENTER OF CHEST POST PIMPLE. DR VALERO NOTIFIED. PT BELONGINGS PLACED UNDERNEATH [facility] FOR SAFEKEEPING.
--- NOTE | 2022-11-22 07:24 | NUR ---
PT DENTURES REMOVED AND TAKEN TO PACU FOR SAFEKEEPING.
[2022-11-22 07:37] LABS: International Normalized Ratio 1.06; Prothrombin Time Results 11.1 Sec (9.7-11.5)
--- NOTE | 2022-11-22 09:27 | NUR ---
Patient up to Ambulate independently. Gait steady. Discharge instructions reviewed with patient. Patient verbalizes understanding. Copy given to patient to take home. History, Chart, Medications and Allergies reviewed before start of procedure.Pre-Op teaching done. Pt verbalizes understanding. Patient States Post-Procedure ride home has been arranged. Discharged via wheelchair to private car for ride home.
== END 2022-11-22 09:28 | disposition home or self-care (01) ==
LOC: ORSCMMR 05:45 → ORD 07:30 → ORSCMMR 07:30
PROVIDERS: Surgery
PROC: 0JH60WZ Insertion of Totally Implantable Vascular Access Device into Chest Subcutaneous Tissue and Fascia, Open Approach (ICD-10-PCS; principal; 2022-11-22 07:30)
DX: C83.38 Diffuse large B-cell lymphoma, lymph nodes of multiple sites (principal); I48.91 Unspecified atrial fibrillation; I12.9 Hypertensive chronic kidney disease with stage 1 through stage 4 chronic kidney disease, or unspecified chronic kidney disease; E11.22 Type 2 diabetes mellitus with diabetic chronic kidney disease; N18.30 Chronic kidney disease, stage 3 unspecified; E78.5 Hyperlipidemia, unspecified; G47.33 Obstructive sleep apnea (adult) (pediatric); Z85.048 Personal history of other malignant neoplasm of rectum, rectosigmoid junction, and anus; Z79.01 Long term (current) use of anticoagulants; Z79.82 Long term (current) use of aspirin; Z79.899 Other long term (current) drug therapy; Z87.891 Personal history of nicotine dependence
CPT/HCPCS: 77001; 82947; 85610; C1788; J0690; J1100; J1642; J1644; J2370; J2405; J2704; J2795; J3010; J7120

== ENCOUNTER 2023-01-15 03:22 | Observation (INO) | payer MEDICARE ==
[~2023-01-15] VITALS: Ht 172.7 cm; Wt 88.5 kg
[2023-01-15 04:09] LABS: Hematocrit 34.5 % (37.0-53.0); Hemoglobin 11.6 g/dL (13.5-17.5); Mean Corpuscular HGB 32.3 pg (26.0-34.0); Mean Corpuscular HGB Conc 33.6 g/dL (31.5-36.5); Mean Corpuscular Volume 96 fL (80-100); Mean Platelet Volume 10.3 fL (9.1-12.4); Platelet Count 222 K/mm3 (150-400); RDW Coefficient Variation 15.9 % (11.7-14.2); RDW Standard Deviation 56.1 fL (35.1-46.3); Red Blood Cell Count 3.59 M/mm3 (4.30-5.90)
[2023-01-15 04:28] LABS: Albumin, Blood 3.6 g/dL (3.4-5.0); Albumin/Globulin Ratio 1.2 (0.8-1.8); Bilirubin, Total 0.8 mg/dL (0.1-1.0); Bun/Creatinine Ratio 28.9 (12.0-20.0); Calcium, Blood 9.4 mg/dL (8.5-10.1); Creatinine, Blood 1.14 mg/dL (0.60-1.20); Globulin, Blood 2.9 g/dL (2.2-4.0); Total Protein, Blood 6.5 g/dL (6.4-8.2)
[2023-01-15 04:29] LABS: BAND PERCENT MAN 24 % (0-8); BASOPHILS PERCENT MAN 0 % (0-2); EOSINOPHILS PERCENT MAN 0 % (0-6); LYMPHOCYTES ABSOLUTE MAN 3.34 K/mm3 (0.84-5.20); LYMPHOCYTES PERCENT MAN 5 % (21-46); METAMYELOCYTE ABSOLUTE MAN 1.33 K/mm3 (0.00-0.00); METAMYELOCYTE PERCENT MAN 2 % (0-0); MONOCYTES ABSOLUTE MAN 1.33 K/mm3 (0.16-1.47); MONOCYTES PERCENT MAN 2 % (4-13); NEUTROPHILS ABSOLUTE MAN 60.78 K/mm3 (1.96-9.15); SEG NEUTROPHILS PERCENT MAN 67 % (41-73); TOTAL CELLS COUNTED 100
[2023-01-15 05:56] LABS: Magnesium, Blood 1.7 mg/dL (1.6-2.4)
[2023-01-15 06:20] LABS: Source, Urine Clean Catch
[2023-01-15 06:23] LABS: Appearance, Urine Clear (Clear); Bilirubin, Urine Neg (Neg); Blood, Urine 1+ (Neg); Color, Urine Yellow (P-Yellow); Glucose Qualitative, Urine Neg (Neg); Ketones, Urine Neg (Neg); Leukocyte Esterase, Urine Neg (Neg); Nitrite, Urine Neg (Neg); Protein, Urine Neg (Neg); Urobilinogen, Urine NORM (Normal); pH, Urine 6.5 (5.0-8.0)
[2023-01-15 06:36] LABS: Bacteria Not Seen /hpf; Red Blood Cells, Urine 0-2 /hpf (0-2); Squamous Epithelial Cells Rare /hpf (Few); White Blood Cells, Urine 0-2 /hpf (0-5)
[2023-01-15 08:34] LABS: Influenza A, PCR NEGATIVE (NEGATIVE); Influenza B, PCR NEGATIVE (NEGATIVE); Resp Syncytial Virus, PCR NEGATIVE (NEGATIVE); SARS-Cov-2 (COVID-19) PCR, MMC NEGATIVE (NEGATIVE)
[2023-01-15 09:12] LABS: Adenovirus F 40/41 Not Detected (NOT DETECT); Astrovirus Not Detected (NOT DETECT); Campylobacter Sp Not Detected (NOT DETECT); Cryptosporidium Not Detected (NOT DETECT); Cyclospora Cayetanensis Not Detected (NOT DETECT); E. Coli O157 Not Detected (NOT DETECT); Entamoeba Histolytica Not Detected (NOT DETECT); Enteroaggregative E. coli-EAEC Not Detected (NOT DETECT); Enteropathogenic E. coli-EPEC Not Detected (NOT DETECT); Enterotoxigenic E. coli-ETEC Not Detected (NOT DETECT); Giardia Lamblia Not Detected (NOT DETECT); Norovirus GI/GII Not Detected (NOT DETECT); Plesiomonas Shigelloides Not Detected (NOT DETECT); Rotavirus A Not Detected (NOT DETECT); Salmonella Sp Not Detected (NOT DETECT); Sapovirus Not Detected (NOT DETECT); Shiga Toxin-prod E. coli-STEC Not Detected (NOT DETECT); Shigella/Enteroin E. coli-EIEC Not Detected (NOT DETECT); Vibrio Cholerae Not Detected (NOT DETECT); Vibrio Sp Not Detected (NOT DETECT); Yersinia Enterocolitica Not Detected (NOT DETECT)
--- NOTE | 2023-01-15 18:14 | NUR ---
SHIFT SUMMARY PT A&OX4, VSS/RA, TELE SR 69 BPM, CBGS Q6, NPO, DENIES PAIN, POWERGLIDE LY, IVF @ 75 MLS/HR AND ABX PER EMAR, AMB SBA TO BRP, VOIDING WELL/URINAL, COLOSTOMY WITH 400 MLS BROWN STOOL OUT. WILL REPORT TO ONCOMING NOC RN.
[2023-01-16 06:02] LABS: Hematocrit 28.2 % (37.0-53.0); Hemoglobin 9.6 g/dL (13.5-17.5); Mean Corpuscular HGB 32.9 pg (26.0-34.0); Mean Corpuscular Volume 97 fL (80-100); Mean Platelet Volume 10.6 fL (9.1-12.4); Platelet Count 171 K/mm3 (150-400); RDW Coefficient Variation 16.3 % (11.7-14.2); RDW Standard Deviation 57.5 fL (35.1-46.3); Red Blood Cell Count 2.92 M/mm3 (4.30-5.90)
[2023-01-16 06:23] LABS: BASOPHILS PERCENT MAN 0 % (0-2); EOSINOPHILS PERCENT MAN 0 % (0-6); LYMPHOCYTES ABSOLUTE MAN 1.78 K/mm3 (0.84-5.20); LYMPHOCYTES PERCENT MAN 3 % (21-46); MONOCYTES PERCENT MAN 0 % (4-13); NEUTROPHILS ABSOLUTE MAN 57.66 K/mm3 (1.96-9.15); SEG NEUTROPHILS PERCENT MAN 97 % (41-73); TOTAL CELLS COUNTED 100
[2023-01-16 06:33] LABS: Albumin, Blood 2.8 g/dL (3.4-5.0); Albumin/Globulin Ratio 1.1 (0.8-1.8); Bilirubin, Total 0.5 mg/dL (0.1-1.0); Bun/Creatinine Ratio 21.6 (12.0-20.0); Calcium, Blood 8.3 mg/dL (8.5-10.1); Creatinine, Blood 0.97 mg/dL (0.60-1.20); Globulin, Blood 2.6 g/dL (2.2-4.0); Potassium, Blood 3.4 mmol/L (3.5-5.5); Total Protein, Blood 5.4 g/dL (6.4-8.2)
[2023-01-16 06:39] LABS: White Blood Cell Count 59.45 K/mm3 (4.00-11.30)
--- NOTE | 2023-01-16 06:57 | NUR ---
SHIFT SUMMARY PT A&OX4, PLEASANT AND COOPERATIVE WITH CARE. PT DID NOT NEED PAIN COVERAGE THIS SHIFT. PT HAS AN ADVANCE GABINO DIET ORDER, BLOOD SUGARS WERE A LITTLE LOW, GIVE SOME APPLEJUICE, TOLERATED WELL. MIDNIGHT SUGARS WERE IN THE HIGH 70'S, GIVEN MORE JUICE AND CRACKERS/PEANUTBUTTER, TOLERATED WELL. INDEPENDENT TO BATHROOM. CALLS APPROPRIATELY, CALL LIGHT WITHIN REACH.
[2023-01-16] MEDS ORDERED: AMLO10 PO (12:23)
[2023-01-16] MEDS ORDERED: OMEP20ER PO (12:26)
[2023-01-16] MEDS ORDERED: MELATONIN5 M1 PO (12:27)
--- NOTE | 2023-01-16 12:30 | NUR ---
DISCHARGE SUMMARY PT A&OX4, VSS/RA, GABINO PO REG DIET/DENIES N&V, MULTIPLE BMs VIA OSTOMY-PT MANAGES, AMB INDEPENDENTLY IN ROOM, VOIDING WELL, PWRGLIDE DC'd, DRESSED SELF. DC INS PROVIDED. PT REP UNDERSTANDING THOSE INSTRUCTIONS: BP MEDS/TAKING AND RECORDING, AIC/ORAL DM2 MED, FU WITH PCP. LEFT FLOOR VIA WC TO GO HOME WITH SON, WITH ALL PERSONAL POSSESSIONS INCLUDING DC PACKET.
== END 2023-01-16 13:14 | disposition home or self-care (01) ==
LOC: ER 03:22 → SURS 03:23 → ER 10:43 → SURS 10:51
PROVIDERS: Student in an Organized Health Care Education/Training Program; ADMIT Internal Medicine
DX: K56.600 Partial intestinal obstruction, unspecified as to cause (principal); D72.829 Elevated white blood cell count, unspecified; E87.6 Hypokalemia; E11.9 Type 2 diabetes mellitus without complications; I10 Essential (primary) hypertension; E78.5 Hyperlipidemia, unspecified; I48.0 Paroxysmal atrial fibrillation; C83.30 Diffuse large B-cell lymphoma, unspecified site; I50.32 Chronic diastolic (congestive) heart failure; I25.10 Atherosclerotic heart disease of native coronary artery without angina pectoris; I13.0 Hypertensive heart and chronic kidney disease with heart failure and stage 1 through stage 4 chronic kidney disease, or unspecified chronic kidney disease; N18.30 Chronic kidney disease, stage 3 unspecified; M19.90 Unspecified osteoarthritis, unspecified site; G47.33 Obstructive sleep apnea (adult) (pediatric); Z20.822 Contact with and (suspected) exposure to COVID-19
CPT/HCPCS: 0241U; 36415; 71046; 74177; 80053; 81001; 82947; 83605; 83690; 83735; 85025; 87507; 93005; 93010; A9270; J2405; J2543; J3010; J3480; J7030; Q9967

== ENCOUNTER 2023-04-20 18:30 | Inpatient (IN) | payer MEDICARE ==
[~2023-04-20] VITALS: Ht 172.7 cm; Wt 90.4 kg
[~2023-04-20 18:30] MED LIST changes: +MELATONIN5 M1 PO
[2023-04-20 19:12] LABS: BASOPHILS ABSOLUTE AUTO 0.01 K/mm3 (0.00-0.23); BASOPHILS PERCENT AUTO 0 % (0-2); EOSINOPHILS ABSOLUTE AUTO 0.03 K/mm3 (0.00-0.68); EOSINOPHILS PERCENT AUTO 0 % (0-6); Hematocrit 38.1 % (37.0-53.0); Hemoglobin 12.7 g/dL (13.5-17.5); IMMATURE GRAN ABSOLUTE AUTO 0.05 K/mm3 (0.00-0.10); IMMATURE GRAN PERCENT AUTO 1 % (0-1); LYMPHOCYTES ABSOLUTE AUTO 1.84 K/mm3 (0.84-5.20); LYMPHOCYTES PERCENT AUTO 21 % (21-46); MONOCYTES ABSOLUTE AUTO 0.93 K/mm3 (0.16-1.47); MONOCYTES PERCENT AUTO 10 % (4-13); Mean Corpuscular HGB 31.8 pg (26.0-34.0); Mean Corpuscular HGB Conc 33.3 g/dL (31.5-36.5); Mean Corpuscular Volume 96 fL (80-100); Mean Platelet Volume 10.3 fL (9.1-12.4); NEUTROPHILS ABSOLUTE AUTO 6.05 K/mm3 (1.96-9.15); NEUTROPHILS PERCENT AUTO 68 % (41-73); Platelet Count 191 K/mm3 (150-400); RDW Coefficient Variation 13.5 % (11.7-14.2); Red Blood Cell Count 3.99 M/mm3 (4.30-5.90); White Blood Cell Count 8.91 K/mm3 (4.00-11.30)
[2023-04-20 19:29] LABS: Albumin, Blood 3.7 g/dL (3.4-5.0); Albumin/Globulin Ratio 1.1 (0.8-1.8); Bilirubin, Total 0.5 mg/dL (0.1-1.0); Bun/Creatinine Ratio 29.1 (12.0-20.0); Calcium, Blood 9.2 mg/dL (8.5-10.1); Creatinine, Blood 1.03 mg/dL (0.60-1.20); Globulin, Blood 3.4 g/dL (2.2-4.0); Potassium, Blood 3.9 mmol/L (3.5-5.5); Total Protein, Blood 7.1 g/dL (6.4-8.2)
[2023-04-20 19:46] LABS: Source, Urine Clean Catch
[2023-04-20 19:53] LABS: Bilirubin, Urine Neg (Neg); Blood, Urine 1+ (Neg); Color, Urine Yellow (P-Yellow); Glucose Qualitative, Urine Neg (Neg); Ketones, Urine Neg (Neg); Leukocyte Esterase, Urine Neg (Neg); Nitrite, Urine Neg (Neg); Protein, Urine 1+ (Neg); Urobilinogen, Urine NORM (Normal)
[2023-04-20 20:01] LABS: Appearance, Urine Hazy (Clear)
[2023-04-20 20:02] LABS: Bacteria Mod /hpf; Mucus Mod (0-Heavy); Squamous Epithelial Cells Rare /hpf (Few); White Blood Cells, Urine 0-2 /hpf (0-5)
[2023-04-21 00:05] LABS: Anti-Xa UFH, PHA Monitoring <0.10 IU/mL; Prothrombin Time Results 19.2 Sec (9.7-11.5)
[2023-04-21 00:25] VITALS: BP 134/67
[2023-04-21 03:42] VITALS: BP 132/56
--- NOTE | 2023-04-21 04:33 | NUR ---
PT IS A&O4, SB TO THE BR USES URINAL, RA, PORT ACCESSED PT TOLERATED WELL, COMPLAINTS OF BACK/AB PAIN PRN PAIN MEDICATION GIVEN PER MAR, HEP DRIP RUNNING 19.2ML/HR, NO ACUTE OVERNIGHT EVENTS, CONTINUE POC
[2023-04-21 04:58] LABS: BASOPHILS ABSOLUTE AUTO 0.01 K/mm3 (0.00-0.23); BASOPHILS PERCENT AUTO 0 % (0-2); EOSINOPHILS ABSOLUTE AUTO 0.02 K/mm3 (0.00-0.68); EOSINOPHILS PERCENT AUTO 0 % (0-6); Hematocrit 35.2 % (37.0-53.0); Hemoglobin 11.5 g/dL (13.5-17.5); IMMATURE GRAN ABSOLUTE AUTO 0.03 K/mm3 (0.00-0.10); IMMATURE GRAN PERCENT AUTO 1 % (0-1); LYMPHOCYTES ABSOLUTE AUTO 1.18 K/mm3 (0.84-5.20); LYMPHOCYTES PERCENT AUTO 18 % (21-46); MONOCYTES ABSOLUTE AUTO 0.66 K/mm3 (0.16-1.47); MONOCYTES PERCENT AUTO 10 % (4-13); Mean Corpuscular HGB 31.7 pg (26.0-34.0); Mean Corpuscular HGB Conc 32.7 g/dL (31.5-36.5); Mean Corpuscular Volume 97 fL (80-100); Mean Platelet Volume 10.4 fL (9.1-12.4); NEUTROPHILS ABSOLUTE AUTO 4.73 K/mm3 (1.96-9.15); NEUTROPHILS PERCENT AUTO 71 % (41-73); Platelet Count 154 K/mm3 (150-400); RDW Coefficient Variation 13.5 % (11.7-14.2); RDW Standard Deviation 48.3 fL (35.1-46.3); Red Blood Cell Count 3.63 M/mm3 (4.30-5.90); White Blood Cell Count 6.63 K/mm3 (4.00-11.30)
[2023-04-21 05:20] LABS: Albumin, Blood 3.1 g/dL (3.4-5.0); Albumin/Globulin Ratio 1.1 (0.8-1.8); Bilirubin, Total 0.4 mg/dL (0.1-1.0); Bun/Creatinine Ratio 25.4 (12.0-20.0); Calcium, Blood 8.4 mg/dL (8.5-10.1); Creatinine, Blood 0.99 mg/dL (0.60-1.20); Globulin, Blood 2.8 g/dL (2.2-4.0); Potassium, Blood 4.2 mmol/L (3.5-5.5); Total Protein, Blood 5.9 g/dL (6.4-8.2)
[2023-04-21 07:26] VITALS: BP 120/45
--- NOTE | 2023-04-21 11:55 | NUR ---
S/P NG TUBE PLACMENT PCXR HERE TO VERIFY PLACEMENT. CONTINUE POC.
--- NOTE | 2023-04-21 12:46 | NUR ---
NG TUBE PCXR COMPLETED. PLACEMENT VERIFIED BY RADILOGY. CONNECTED NG TUBE TO LIS. SCANT GREEN FLUID REMOVED. NG TUBE MARKED AT NARE. TUBE PINNED AND TAPED TO PT GOWN POCKET. AIR GRIFFITH HEARD FROM VENT WITH SUCTION. CONTINUE POC.
[2023-04-21 16:27] VITALS: BP 147/63
--- NOTE | 2023-04-21 16:27 | NUR ---
SHIFT NOTE PT HAS HAD 2 SMALL FORMED, HARD STOOL IN HIS APPLIANCE. NO FLATUS. NG TUBE PLACED PER DR JACKMAN DIRECTION. RUNNING AT LIS. PT HAS BEEN SUCKING ON A FEW ICE CHIPS. SCANT GREEN TINGED, CLEAR LIQUID REMOVED THROUGH NG TUBE. ABD SOFT FALT NON TENDER. NO NAUSEA OR BLOATING. PT STANDS AT BEDSIDE TO VOID PER URINAL. MEDIPORT ACCESSED. HEPARIN GTT INFUSING AT 19.2 ML/HR. PHARMACY TO MANAGE HEPARIN GTT. CONTINUE POC.
[2023-04-21 19:52] VITALS: BP 139/48
[2023-04-22 04:48] VITALS: BP 143/62
[2023-04-22 05:43] LABS: BASOPHILS ABSOLUTE AUTO 0.01 K/mm3 (0.00-0.23); BASOPHILS PERCENT AUTO 0 % (0-2); EOSINOPHILS ABSOLUTE AUTO 0.05 K/mm3 (0.00-0.68); EOSINOPHILS PERCENT AUTO 1 % (0-6); Hematocrit 35.2 % (37.0-53.0); Hemoglobin 11.6 g/dL (13.5-17.5); IMMATURE GRAN ABSOLUTE AUTO 0.04 K/mm3 (0.00-0.10); IMMATURE GRAN PERCENT AUTO 1 % (0-1); LYMPHOCYTES ABSOLUTE AUTO 1.13 K/mm3 (0.84-5.20); LYMPHOCYTES PERCENT AUTO 20 % (21-46); MONOCYTES ABSOLUTE AUTO 0.61 K/mm3 (0.16-1.47); MONOCYTES PERCENT AUTO 11 % (4-13); Mean Corpuscular HGB 31.7 pg (26.0-34.0); Mean Corpuscular Volume 96 fL (80-100); Mean Platelet Volume 10.3 fL (9.1-12.4); NEUTROPHILS ABSOLUTE AUTO 3.69 K/mm3 (1.96-9.15); NEUTROPHILS PERCENT AUTO 67 % (41-73); Platelet Count 155 K/mm3 (150-400); RDW Coefficient Variation 13.6 % (11.7-14.2); RDW Standard Deviation 48.3 fL (35.1-46.3); Red Blood Cell Count 3.66 M/mm3 (4.30-5.90); White Blood Cell Count 5.53 K/mm3 (4.00-11.30)
[2023-04-22 06:15] LABS: Bun/Creatinine Ratio 13.6 (12.0-20.0); Calcium, Blood 9.2 mg/dL (8.5-10.1); Creatinine, Blood 1.03 mg/dL (0.60-1.20); Magnesium, Blood 1.8 mg/dL (1.6-2.4); Phosphorus, Blood 2.6 mg/dL (2.5-4.9); Potassium, Blood 3.4 mmol/L (3.5-5.5)
[2023-04-22 07:30] VITALS: BP 143/68
--- NOTE | 2023-04-22 07:51 | NUR ---
Shift Summary NG tube in place with moderate drainage of bright yellow liquid. Emptied 900 mL container around 0200 and there is approx 50 mL in the container this morning. Heparin drip running at 19.2 mL/hr. NPO except for ice chips. VSS.
--- NOTE | 2023-04-22 13:03 | NUR ---
PT IS ALERT AND ORIENTED X4. NG WITH INTERMITTEN SUCTION. PT WENT FOR CT WITH CONTRAST IN ABDOMEN . TOLOTRATED WELL. COLOSTOMY EMPTIED X3 AFTER PROCEDURE. DENIES PAIN. ABLE TO TRANSFER FROM CHAIR TO BED WITH STAND BY ASSIST. NO NEEDS AT THIS TIME
[2023-04-22 15:23] VITALS: BP 116/77
--- NOTE | 2023-04-22 16:40 | NUR ---
NG REMOVED 2 HOURS AGO. PT TOLORATED WELL. DENIES PAIN. PRODUCING LARGE AMOUNTS OF LOOSE WATERY STOOL
--- NOTE | 2023-04-22 17:35 | NUR ---
SHIFT SUMMARY PT ALERT AND ORIENTED X4. FAMILY AT BEDSIDE. LARGE AMOUNTS OF LOOSE WATERY STOOL OUTPUT. STANDBY ASSIST. NO ACUTE CHANGES THIS SHIFT.
[2023-04-22 19:12] VITALS: BP 134/56
--- NOTE | 2023-04-23 06:59 | NUR ---
Shif Summary Pt ambulated for the first time in 4 days per pt while I SBA. He used FWW and took frequent breaks to rest. On heparin drip. C/O shoulder pain while in bed for prolonged periods, moved into the chair for a period of time. Ostomy producing watery stool and moderate amounts of gas.
[2023-04-23 07:14] VITALS: BP 124/78
[2023-04-23 15:00] VITALS: BP 137/70
--- NOTE | 2023-04-23 17:42 | NUR ---
PT DISCHARGED HOME DISCHARGE INSTRUCTIONS DISCUSSED WITH PT. PT TO RESTART HOME MEDICATIONS TONIGHT. ALERT AND ORIENTED X4. STANDY ASSIST TO WHEELCHAIR. R/A. NO QUESTIONS AT THIS TIME
== END 2023-04-23 17:13 | disposition home or self-care (01) | DRG 389 ==
LOC: ER 18:30 → MEDS 23:06
PROVIDERS: Emergency Medicine; Hospitalist; Student in an Organized Health Care Education/Training Program; ADMIT Internal Medicine
PROC: 0D9670Z Drainage of Stomach with Drainage Device, Via Natural or Artificial Opening (ICD-10-PCS; principal; 2023-04-21)
DX: K56.600 Partial intestinal obstruction, unspecified as to cause (principal); I13.0 Hypertensive heart and chronic kidney disease with heart failure and stage 1 through stage 4 chronic kidney disease, or unspecified chronic kidney disease; N39.0 Urinary tract infection, site not specified; I50.32 Chronic diastolic (congestive) heart failure; I48.0 Paroxysmal atrial fibrillation; E78.5 Hyperlipidemia, unspecified; I25.10 Atherosclerotic heart disease of native coronary artery without angina pectoris; M47.9 Spondylosis, unspecified; N18.30 Chronic kidney disease, stage 3 unspecified; E11.22 Type 2 diabetes mellitus with diabetic chronic kidney disease; K43.5 Parastomal hernia without obstruction or gangrene; K21.9 Gastro-esophageal reflux disease without esophagitis; G47.33 Obstructive sleep apnea (adult) (pediatric); I45.10 Unspecified right bundle-branch block; N32.0 Bladder-neck obstruction; Z85.72 Personal history of non-Hodgkin lymphomas; Z92.21 Personal history of antineoplastic chemotherapy; Z85.038 Personal history of other malignant neoplasm of large intestine; Z90.49 Acquired absence of other specified parts of digestive tract; I25.2 Old myocardial infarction; Z86.79 Personal history of other diseases of the circulatory system; Z98.890 Other specified postprocedural states; Z85.048 Personal history of other malignant neoplasm of rectum, rectosigmoid junction, and anus; Z79.899 Other long term (current) drug therapy; Z79.01 Long term (current) use of anticoagulants; Z87.891 Personal history of nicotine dependence; Z92.3 Personal history of irradiation; Z86.73 Personal history of transient ischemic attack (TIA), and cerebral infarction without residual deficits; Z93.3 Colostomy status; Z79.02 Long term (current) use of antithrombotics/antiplatelets; Z98.1 Arthrodesis status; Z98.49 Cataract extraction status, unspecified eye; Z95.5 Presence of coronary angioplasty implant and graft
CPT/HCPCS: 36415; 71045; 74177; 74250; 80048; 80053; 81001; 82947; 83690; 83735; 84100; 85025; 85520; 85610; 85730; 87086; 96374-59; 96375; 99285-25; A9270; J0696; J1170; J1642; J1644; J2405; J2543; J7030; J7042; J7050; Q9967

== ENCOUNTER 2023-06-06 20:59 | Inpatient (IN) | payer MEDICARE ==
[~2023-06-06] VITALS: Ht 172.7 cm; Wt 86.6 kg
[2023-06-06 22:23] LABS: BASOPHILS ABSOLUTE AUTO 0.03 K/mm3 (0.00-0.23); BASOPHILS PERCENT AUTO 0 % (0-2); EOSINOPHILS ABSOLUTE AUTO 0.02 K/mm3 (0.00-0.68); EOSINOPHILS PERCENT AUTO 0 % (0-6); Hematocrit 36.9 % (37.0-53.0); Hemoglobin 12.3 g/dL (13.5-17.5); IMMATURE GRAN ABSOLUTE AUTO 0.03 K/mm3 (0.00-0.10); IMMATURE GRAN PERCENT AUTO 0 % (0-1); LYMPHOCYTES ABSOLUTE AUTO 1.66 K/mm3 (0.84-5.20); LYMPHOCYTES PERCENT AUTO 17 % (21-46); MONOCYTES ABSOLUTE AUTO 0.88 K/mm3 (0.16-1.47); MONOCYTES PERCENT AUTO 9 % (4-13); Mean Corpuscular HGB 31.2 pg (26.0-34.0); Mean Corpuscular HGB Conc 33.3 g/dL (31.5-36.5); Mean Corpuscular Volume 94 fL (80-100); Mean Platelet Volume 10.2 fL (9.1-12.4); NEUTROPHILS ABSOLUTE AUTO 7.28 K/mm3 (1.96-9.15); NEUTROPHILS PERCENT AUTO 74 % (41-73); Platelet Count 183 K/mm3 (150-400); RDW Coefficient Variation 14.1 % (11.7-14.2); RDW Standard Deviation 48.6 fL (35.1-46.3); Red Blood Cell Count 3.94 M/mm3 (4.30-5.90)
[2023-06-06 22:44] LABS: Albumin, Blood 3.6 g/dL (3.4-5.0); Albumin/Globulin Ratio 1.2 (0.8-1.8); Bilirubin, Total 0.5 mg/dL (0.1-1.0); Bun/Creatinine Ratio 21.9 (12.0-20.0); Calcium, Blood 8.9 mg/dL (8.5-10.1); Creatinine, Blood 1.14 mg/dL (0.60-1.20); Globulin, Blood 3.1 g/dL (2.2-4.0); Potassium, Blood 3.6 mmol/L (3.5-5.5); Total Protein, Blood 6.7 g/dL (6.4-8.2)
[2023-06-06 22:50] LABS: Source, Urine Clean Catch
[2023-06-06 22:55] LABS: Bilirubin, Urine Neg (Neg); Blood, Urine 1+ (Neg); Glucose Qualitative, Urine Neg (Neg); Ketones, Urine Neg (Neg); Leukocyte Esterase, Urine Neg (Neg); Nitrite, Urine Neg (Neg); Protein, Urine Neg (Neg); Urobilinogen, Urine NORM (Normal)
[2023-06-06 23:14] LABS: Appearance, Urine Clear (Clear); Color, Urine Yellow (P-Yellow)
[2023-06-06 23:16] LABS: Bacteria Few /hpf; Squamous Epithelial Cells Rare /hpf (Few); White Blood Cells, Urine 0-2 /hpf (0-5)
[2023-06-07 02:41] LABS: International Normalized Ratio 3.08; Prothrombin Time Results 30.3 Sec (9.7-11.5)
[2023-06-07 03:13] VITALS: BP 137/60
--- NOTE | 2023-06-07 05:37 | NUR ---
aDMISSION DONE, VERY PLEASENT PT AND A GOOD HISTORIAN OF HIS HEALTH. PAIN TO ABD COVERED WITH MEDS, OSTOMY INTACT, PT ABLE TO STAND AT SIDE OF BED WITH MINIMAL HELP. ADDITONAL PAIN MEDS ORDERED FOR ABD PAIN, PT NOW SLEEPING.
[2023-06-07 06:32] LABS: Bun/Creatinine Ratio 19.2 (12.0-20.0); Calcium, Blood 8.5 mg/dL (8.5-10.1); Creatinine, Blood 0.99 mg/dL (0.60-1.20); Potassium, Blood 3.5 mmol/L (3.5-5.5)
[2023-06-07 07:06] VITALS: BP 135/58
[2023-06-07 15:29] VITALS: BP 154/70
--- NOTE | 2023-06-07 18:39 | NUR ---
SHIFT SUMMARY PT HAS REMAINED NPO TODAY. SEEN BY DR. BERGER WITH PLAN TO WATCH. PT HAS DENIED NAUSEA BUT HAS RECEIVED PAIN MEDS TWICE TODAY. WALKED A BIT IN THE ROOM THIS AFTERNOON AND THOUGHT HE FELT SOME ABDOMENAL RUMBLINGS BUT THEY FADED AWAY. HAS HAD NO GAS OR STOOL IN OSTOMY BAG TODAY.
[2023-06-07 19:30] VITALS: BP 154/80
[2023-06-07 21:23] LABS: International Normalized Ratio 2.01; Prothrombin Time Results 20.3 Sec (9.7-11.5)
[2023-06-08 03:16] VITALS: BP 147/75
--- NOTE | 2023-06-08 04:56 | NUR ---
A/O VERY PLEASENT, NO DISTRESS NO C/O PAIN. INDEPENDANT IN RM HAD SMALL AMOUNT OF STOOL OUT IN HIS COLOSTOMY. HEPARINE STARTED 15UNIT/KG TODAY. PT GIVEN DILAUDID FOR ABOUT PAIN. CONT MONITORING
[2023-06-08 05:03] LABS: Hematocrit 35.6 % (37.0-53.0); Hemoglobin 11.7 g/dL (13.5-17.5); Mean Corpuscular HGB Conc 32.9 g/dL (31.5-36.5); Mean Corpuscular Volume 94 fL (80-100); Mean Platelet Volume 10.2 fL (9.1-12.4); Platelet Count 167 K/mm3 (150-400); RDW Coefficient Variation 14.4 % (11.7-14.2); RDW Standard Deviation 49.8 fL (35.1-46.3); Red Blood Cell Count 3.77 M/mm3 (4.30-5.90); White Blood Cell Count 5.36 K/mm3 (4.00-11.30)
[2023-06-08 05:37] LABS: Bun/Creatinine Ratio 11.8 (12.0-20.0); Calcium, Blood 8.1 mg/dL (8.5-10.1); Creatinine, Blood 1.02 mg/dL (0.60-1.20); Potassium, Blood 4.1 mmol/L (3.5-5.5)
--- NOTE | 2023-06-08 06:44 | NUR ---
ASSISSTED PT TO BATHROOM HAD LARGE SOLID BM IN COLOSTOMY, MINIMAL PAIN TO ABD, HEPARINE STILL INFUSING.
[2023-06-08 07:12] VITALS: BP 137/78
--- NOTE | 2023-06-08 15:55 | NUR ---
DISCHARGE INSTRUCTIONS COMPLETED AND DISCUSSED WITH PT EXPRESSING UNDERSTANDING. NO NEW SCRIPTS TO FAX. HAS TOLERATED FOOD WELL TODAY. DENIED ANY POTENTIAL SOURCES OF IGNITION AND EDUCATED ABOUT RISK. TO [place] VIA W/C. WITH FRIEND DRIVING HIM HOME.
== END 2023-06-08 15:49 | disposition home or self-care (01) | DRG 389 ==
LOC: ER 20:59 → MEDS 06-07 01:54 → ENPENDDIS 06-08 15:28 → MEDS 06-08 15:49
PROVIDERS: Student in an Organized Health Care Education/Training Program; Surgery; ADMIT Internal Medicine
DX: K56.609 Unspecified intestinal obstruction, unspecified as to partial versus complete obstruction (principal); I13.0 Hypertensive heart and chronic kidney disease with heart failure and stage 1 through stage 4 chronic kidney disease, or unspecified chronic kidney disease; I50.32 Chronic diastolic (congestive) heart failure; K43.5 Parastomal hernia without obstruction or gangrene; I48.0 Paroxysmal atrial fibrillation; E11.22 Type 2 diabetes mellitus with diabetic chronic kidney disease; I25.10 Atherosclerotic heart disease of native coronary artery without angina pectoris; N18.30 Chronic kidney disease, stage 3 unspecified; G47.33 Obstructive sleep apnea (adult) (pediatric); M47.816 Spondylosis without myelopathy or radiculopathy, lumbar region; I45.10 Unspecified right bundle-branch block; N32.0 Bladder-neck obstruction; D63.1 Anemia in chronic kidney disease; E78.5 Hyperlipidemia, unspecified; Z93.3 Colostomy status; Z85.72 Personal history of non-Hodgkin lymphomas; Z85.048 Personal history of other malignant neoplasm of rectum, rectosigmoid junction, and anus; Z92.21 Personal history of antineoplastic chemotherapy; Z92.3 Personal history of irradiation; Z79.02 Long term (current) use of antithrombotics/antiplatelets; Z79.01 Long term (current) use of anticoagulants; Z79.899 Other long term (current) drug therapy; I25.2 Old myocardial infarction; Z90.89 Acquired absence of other organs; Z98.890 Other specified postprocedural states; Z85.038 Personal history of other malignant neoplasm of large intestine; Z87.891 Personal history of nicotine dependence
CPT/HCPCS: 36415; 74177; 80048; 80053; 81001; 83690; 84484; 85025; 85027; 85520; 85610; 93005; 93010; 96361; 96374-59; 96375; 99285-25; J1170; J1644; J2405; J3010; J7030; J7120; Q9967

== ENCOUNTER 2023-07-23 03:49 | Inpatient (IN) | payer MEDICARE ==
[~2023-07-23] VITALS: Ht 172.7 cm; Wt 86.5 kg
[2023-07-23 04:28] LABS: BASOPHILS ABSOLUTE AUTO 0.02 K/mm3 (0.00-0.23); BASOPHILS PERCENT AUTO 0 % (0-2); EOSINOPHILS ABSOLUTE AUTO 0.03 K/mm3 (0.00-0.68); EOSINOPHILS PERCENT AUTO 0 % (0-6); Hemoglobin 12.9 g/dL (13.5-17.5); IMMATURE GRAN ABSOLUTE AUTO 0.03 K/mm3 (0.00-0.10); IMMATURE GRAN PERCENT AUTO 0 % (0-1); LYMPHOCYTES ABSOLUTE AUTO 1.41 K/mm3 (0.84-5.20); LYMPHOCYTES PERCENT AUTO 16 % (21-46); MONOCYTES ABSOLUTE AUTO 0.92 K/mm3 (0.16-1.47); MONOCYTES PERCENT AUTO 11 % (4-13); Mean Corpuscular HGB 31.3 pg (26.0-34.0); Mean Corpuscular HGB Conc 33.1 g/dL (31.5-36.5); Mean Corpuscular Volume 95 fL (80-100); Mean Platelet Volume 10.3 fL (9.1-12.4); NEUTROPHILS ABSOLUTE AUTO 6.25 K/mm3 (1.96-9.15); NEUTROPHILS PERCENT AUTO 72 % (41-73); Platelet Count 196 K/mm3 (150-400); RDW Coefficient Variation 15.1 % (11.7-14.2); RDW Standard Deviation 52.7 fL (35.1-46.3); Red Blood Cell Count 4.12 M/mm3 (4.30-5.90); White Blood Cell Count 8.66 K/mm3 (4.00-11.30)
[2023-07-23 04:46] LABS: Albumin, Blood 3.8 g/dL (3.4-5.0); Albumin/Globulin Ratio 1.2 (0.8-1.8); Bilirubin, Total 0.6 mg/dL (0.1-1.0); Bun/Creatinine Ratio 18.7 (12.0-20.0); Calcium, Blood 9.4 mg/dL (8.5-10.1); Creatinine, Blood 1.23 mg/dL (0.60-1.20); Globulin, Blood 3.1 g/dL (2.2-4.0); Potassium, Blood 3.7 mmol/L (3.5-5.5); Total Protein, Blood 6.9 g/dL (6.4-8.2)
[2023-07-23 05:21] LABS: Source, Urine Clean Catch
[2023-07-23 05:37] LABS: Bilirubin, Urine Neg (Neg); Blood, Urine 1+ (Neg); Glucose Qualitative, Urine Neg (Neg); Ketones, Urine Neg (Neg); Leukocyte Esterase, Urine Neg (Neg); Nitrite, Urine Neg (Neg); Protein, Urine Neg (Neg); Urobilinogen, Urine 1+ (Normal)
[2023-07-23 05:51] LABS: Appearance, Urine Clear (Clear); Bacteria Not Seen /hpf; Color, Urine Yellow (P-Yellow); Red Blood Cells, Urine 0-2 /hpf (0-2); Squamous Epithelial Cells Rare /hpf (Few); White Blood Cells, Urine Not Seen /hpf (0-5)
[2023-07-23] MEDS ORDERED: LOSA50 PO (06:13)
[2023-07-23] MEDS ORDERED: PIOGLITAZONE HC15 MG PO (06:13)
[2023-07-23 07:49] LABS: Anti-Xa UFH, PHA Monitoring <0.10 IU/mL; International Normalized Ratio 1.09; Prothrombin Time Results 11.4 Sec (9.7-11.5)
[2023-07-23 08:13] VITALS: BP 155/55
[2023-07-23 15:29] VITALS: BP 137/63
--- NOTE | 2023-07-23 19:37 | NUR ---
SHIFT SUMMARY ER ADMIT THIS SHIFT, PT BROUGHT UP BY MAS[place] TO HIS ROOM, ABLE TO GET UP AND TRANSFER AMBULATORY, WALKS TO BATHROOM WITH SBA ONLY, ABLE TO PROVIDE HIS OWN CARE FOR HIS OSTOMY WHICH HE REPORTS HAS BEEN IN PLACE FOR ABOUT 10 YEARS. TOLERATING SIPS/CHIPS T/O THE SHIFT, HAD SOME SOFT STOOL OUTPUT FROM HIS OSTOMY TODAY WHICH HE EMPTIED UNMEASURED. HEPARIN DRIP STARTED AND IS MANAGED PER PHARMACY R/T HIS HOME USE OF WARFARIN. NO ACUTE EVENTS THIS SHIFT, CALL LIGHT IN REACH.
[2023-07-23 20:59] VITALS: BP 154/67
[2023-07-24 05:03] VITALS: BP 131/59
[2023-07-24 05:32] LABS: BASOPHILS ABSOLUTE AUTO 0.02 K/mm3 (0.00-0.23); BASOPHILS PERCENT AUTO 0 % (0-2); EOSINOPHILS ABSOLUTE AUTO 0.06 K/mm3 (0.00-0.68); EOSINOPHILS PERCENT AUTO 1 % (0-6); Hematocrit 39.1 % (37.0-53.0); Hemoglobin 12.8 g/dL (13.5-17.5); IMMATURE GRAN ABSOLUTE AUTO 0.03 K/mm3 (0.00-0.10); IMMATURE GRAN PERCENT AUTO 1 % (0-1); LYMPHOCYTES PERCENT AUTO 23 % (21-46); MONOCYTES ABSOLUTE AUTO 0.75 K/mm3 (0.16-1.47); MONOCYTES PERCENT AUTO 12 % (4-13); Mean Corpuscular HGB 31.5 pg (26.0-34.0); Mean Corpuscular HGB Conc 32.7 g/dL (31.5-36.5); Mean Corpuscular Volume 96 fL (80-100); Mean Platelet Volume 10.5 fL (9.1-12.4); NEUTROPHILS ABSOLUTE AUTO 3.87 K/mm3 (1.96-9.15); NEUTROPHILS PERCENT AUTO 63 % (41-73); Platelet Count 153 K/mm3 (150-400); RDW Coefficient Variation 15.2 % (11.7-14.2); Red Blood Cell Count 4.06 M/mm3 (4.30-5.90); White Blood Cell Count 6.13 K/mm3 (4.00-11.30)
--- NOTE | 2023-07-24 06:12 | NUR ---
SHIFT SUMMARY AOx4. VSS. DENIES ANY ABD PAIN, TENDERNESS, N/V, ACID REFLUX. ACTIVE BT. REPORTS PASSING FLATUS. STATES NO OUTPUT FROM COLOSTOMY SINCE 07/23 AFTERNOON. HEP DRIP @13U/KG/HR, PHARMACY MANAGING. Q6 CBG NOT REQUIRING ANY COVERAGE. PT ASKED FOR MELATONIN @HS TO HELP SLEEP, BEEN RESTING WELL SINCE. CALL LIGHT IN REACH & PT ABLE TO MAKE NEEDS KNOWN.
[2023-07-24 06:13] LABS: Magnesium, Blood 1.8 mg/dL (1.6-2.4)
[2023-07-24 06:14] LABS: Albumin, Blood 3.2 g/dL (3.4-5.0); Albumin/Globulin Ratio 1.1 (0.8-1.8); Bilirubin, Total 0.6 mg/dL (0.1-1.0); Bun/Creatinine Ratio 18.1 (12.0-20.0); Calcium, Blood 8.7 mg/dL (8.5-10.1); Creatinine, Blood 1.05 mg/dL (0.60-1.20); Globulin, Blood 2.8 g/dL (2.2-4.0); Phosphorus, Blood 3.4 mg/dL (2.5-4.9); Potassium, Blood 3.8 mmol/L (3.5-5.5)
[2023-07-24 08:14] VITALS: BP 120/76
[2023-07-24 16:00] VITALS: BP 132/98
[2023-07-24 20:06] VITALS: BP 137/61
[2023-07-25 04:08] VITALS: BP 136/48
[2023-07-25 04:17] LABS: Hematocrit 36.9 % (37.0-53.0); Hemoglobin 12.2 g/dL (13.5-17.5); Mean Platelet Volume 10.1 fL (9.1-12.4); Platelet Count 169 K/mm3 (150-400)
--- NOTE | 2023-07-25 05:52 | NUR ---
SHIFT SUMMARY AOX4. DENIES N/V OR ABD PAIN. REPORTS PASSING FLATUS. HAD SM SOFT BROWN FORMED BM OUT OSTOMY. ACTIVE BT. GABINO CLEAR LIQUIDS. HS CBG NOT REQUIRING COVERAGE. HEP DRIP DECREASED TO 12U/KG/HR. CALL LIGHT IN REACH & PT ABLE TO MAKE NEEDS KNOWN. WILL MONITOR.
[2023-07-25 07:19] VITALS: BP 140/127
--- NOTE | 2023-07-25 11:03 | NUR ---
DISCHARGE PT IS HAPPY TO BE DC'ING HOME. TOLERATING CLEAR LQ's WELL. DENIES N/V. HAS OUTPUT & GAS VIA OSTOMY. ESCORTED OUT VIA WC.
== END 2023-07-25 11:01 | disposition home or self-care (01) | DRG 389 ==
LOC: ER 03:49 → SURS 06:07
PROVIDERS: Student in an Organized Health Care Education/Training Program; ADMIT Student in an Organized Health Care Education/Training Program
DX: K56.600 Partial intestinal obstruction, unspecified as to cause (principal); I13.0 Hypertensive heart and chronic kidney disease with heart failure and stage 1 through stage 4 chronic kidney disease, or unspecified chronic kidney disease; I50.32 Chronic diastolic (congestive) heart failure; I48.0 Paroxysmal atrial fibrillation; N18.30 Chronic kidney disease, stage 3 unspecified; I25.10 Atherosclerotic heart disease of native coronary artery without angina pectoris; E78.5 Hyperlipidemia, unspecified; E11.22 Type 2 diabetes mellitus with diabetic chronic kidney disease; I45.10 Unspecified right bundle-branch block; N32.0 Bladder-neck obstruction; I44.0 Atrioventricular block, first degree; M47.896 Other spondylosis, lumbar region; G47.33 Obstructive sleep apnea (adult) (pediatric); Z95.5 Presence of coronary angioplasty implant and graft; I25.2 Old myocardial infarction; Z85.048 Personal history of other malignant neoplasm of rectum, rectosigmoid junction, and anus; Z79.01 Long term (current) use of anticoagulants; Z79.899 Other long term (current) drug therapy; Z98.49 Cataract extraction status, unspecified eye; Z98.890 Other specified postprocedural states; Z90.49 Acquired absence of other specified parts of digestive tract; Z87.891 Personal history of nicotine dependence; Z93.3 Colostomy status; Z85.72 Personal history of non-Hodgkin lymphomas
CPT/HCPCS: 36415; 74177; 80053; 81001; 82947; 83690; 83735; 84100; 85014; 85018; 85025; 85049; 85520; 85610; 85730; 93005; 93010; 96374-59; 96375; 99285-25; A9270; J1644; J2405; J3010; Q9967

== ENCOUNTER 2023-09-01 19:17 | Observation (INO) | payer MEDICARE ==
[~2023-09-01] VITALS: Ht 172.7 cm; Wt 85.2 kg
[~2023-09-01 19:17] MED LIST changes: +LOSA50 PO; +PIOGLITAZONE HC15 MG PO
[2023-09-01 19:54] LABS: BASOPHILS ABSOLUTE AUTO 0.02 K/mm3 (0.00-0.23); BASOPHILS PERCENT AUTO 0 % (0-2); EOSINOPHILS ABSOLUTE AUTO 0.03 K/mm3 (0.00-0.68); EOSINOPHILS PERCENT AUTO 0 % (0-6); Hematocrit 36.5 % (37.0-53.0); Hemoglobin 11.8 g/dL (13.5-17.5); IMMATURE GRAN ABSOLUTE AUTO 0.07 K/mm3 (0.00-0.10); IMMATURE GRAN PERCENT AUTO 1 % (0-1); LYMPHOCYTES ABSOLUTE AUTO 1.02 K/mm3 (0.84-5.20); LYMPHOCYTES PERCENT AUTO 11 % (21-46); MONOCYTES ABSOLUTE AUTO 0.73 K/mm3 (0.16-1.47); MONOCYTES PERCENT AUTO 8 % (4-13); Mean Corpuscular HGB 31.1 pg (26.0-34.0); Mean Corpuscular HGB Conc 32.3 g/dL (31.5-36.5); Mean Corpuscular Volume 96 fL (80-100); Mean Platelet Volume 10.5 fL (9.1-12.4); NEUTROPHILS ABSOLUTE AUTO 7.81 K/mm3 (1.96-9.15); NEUTROPHILS PERCENT AUTO 81 % (41-73); Platelet Count 167 K/mm3 (150-400); RDW Coefficient Variation 15.4 % (11.7-14.2); RDW Standard Deviation 54.6 fL (35.1-46.3); White Blood Cell Count 9.68 K/mm3 (4.00-11.30)
[2023-09-01 20:11] LABS: Albumin, Blood 3.6 g/dL (3.4-5.0); Albumin/Globulin Ratio 1.2 (0.8-1.8); Bilirubin, Total 0.5 mg/dL (0.1-1.0); Bun/Creatinine Ratio 19.6 (12.0-20.0); Calcium, Blood 9.4 mg/dL (8.5-10.1); Creatinine, Blood 1.07 mg/dL (0.60-1.20); Globulin, Blood 3.1 g/dL (2.2-4.0); Potassium, Blood 3.8 mmol/L (3.5-5.5); Total Protein, Blood 6.7 g/dL (6.4-8.2)
[2023-09-02 02:38] VITALS: BP 147/56
[2023-09-02] MEDS ORDERED: MELATONIN5 M1 PO (03:47)
--- NOTE | 2023-09-02 04:09 | NUR ---
PATIENT ARRIVED ON UNIT AT 0235 RECEIVED BY CHARGE NURSE VEL JONES AND FATOU CUENCA. PATIENT WITH 6 BEAT RUN OF VTACH AT 0345, OTHERWISE SINUS AT 65, SECOND CALL FROM TELE MONITOR SHAWN PATIENT NOW SINUS 69 WITH 1ST AND 2ND DEGREE BUNDLE BRANCH BLOCK. DR ALEGRIA NOTIFIED AT 0405. PATIENT ASYMPTOMATIC THROUGHOUT. DENIES CHEST PAIN. NO NEW ORDERS.
[2023-09-02 05:37] LABS: BASOPHILS ABSOLUTE AUTO 0.02 K/mm3 (0.00-0.23); BASOPHILS PERCENT AUTO 0 % (0-2); EOSINOPHILS ABSOLUTE AUTO 0.08 K/mm3 (0.00-0.68); EOSINOPHILS PERCENT AUTO 1 % (0-6); Hematocrit 35.8 % (37.0-53.0); Hemoglobin 11.6 g/dL (13.5-17.5); IMMATURE GRAN ABSOLUTE AUTO 0.02 K/mm3 (0.00-0.10); IMMATURE GRAN PERCENT AUTO 0 % (0-1); LYMPHOCYTES ABSOLUTE AUTO 1.05 K/mm3 (0.84-5.20); LYMPHOCYTES PERCENT AUTO 16 % (21-46); MONOCYTES ABSOLUTE AUTO 0.71 K/mm3 (0.16-1.47); MONOCYTES PERCENT AUTO 11 % (4-13); Mean Corpuscular HGB 30.9 pg (26.0-34.0); Mean Corpuscular HGB Conc 32.4 g/dL (31.5-36.5); Mean Corpuscular Volume 96 fL (80-100); Mean Platelet Volume 11.1 fL (9.1-12.4); NEUTROPHILS PERCENT AUTO 72 % (41-73); Platelet Count 165 K/mm3 (150-400); RDW Coefficient Variation 15.4 % (11.7-14.2); RDW Standard Deviation 54.4 fL (35.1-46.3); Red Blood Cell Count 3.75 M/mm3 (4.30-5.90); White Blood Cell Count 6.68 K/mm3 (4.00-11.30)
[2023-09-02 06:15] LABS: Albumin, Blood 3.4 g/dL (3.4-5.0); Albumin/Globulin Ratio 1.1 (0.8-1.8); Bilirubin, Total 0.5 mg/dL (0.1-1.0); Bun/Creatinine Ratio 18.5 (12.0-20.0); Creatinine, Blood 0.97 mg/dL (0.60-1.20); Potassium, Blood 3.5 mmol/L (3.5-5.5); Total Protein, Blood 6.4 g/dL (6.4-8.2)
[2023-09-02 07:07] VITALS: BP 135/56
--- NOTE | 2023-09-02 07:23 | NUR ---
SHIFT SUMMARY PATIENT WITH 6 BEAT RUN OF VTACH, 1ST AND SECOND DEGREE BBB. PATIENT DENIES ANY CHEST PAIN, PRESSURE SOB OR DIZZINESS. MD WAS NOTIFIED. BED IN LOW POSITION, CALL LIGHT IN REACH. PATIENT CALLS APPROPRIATLEY.
[2023-09-02 07:56] LABS: International Normalized Ratio 1.94; Prothrombin Time Results 19.6 Sec (9.7-11.5)
--- NOTE | 2023-09-02 09:00 | NUR ---
pt laying in bed awake a/ox4, pleasant and coopertive with care, follows commands well, denies any complaints of chest pain, states the pain stopped when he was given ntg in the ambulance, and non since, lungs are clear t/o, resp even and unlabored, no cough noted, on r/a, hrirr, tele in place running afib per monitor, see strip, no edema noted, ppp+1, pt reports he got a dario horse in his left le this am, piv to lfa, site is clear and patent, s.l., btx4, abd flat soft nontender, voids without diff, skin c/w/d, maew, nellie, call light in reach. plan for one day stress test tomorrow.
[2023-09-02 15:02] VITALS: BP 121/62
--- NOTE | 2023-09-02 18:04 | NUR ---
pt resting in bed, he was up ad rohan in room and ambulated out in the ravi, no chest pain reported today, call light in reach.
[2023-09-02 19:29] VITALS: BP 154/68
[2023-09-03 03:53] VITALS: BP 144/69
[2023-09-03 05:13] LABS: International Normalized Ratio 1.76; Prothrombin Time Results 17.9 Sec (9.7-11.5)
--- NOTE | 2023-09-03 05:42 | NUR ---
END OF SHIFT SUMMARY PT A&O x4. VSS, AFEBRILE. PT PLEASANT AND COOPERATIVE WITH CARE PROVIDED. PT UP AD WANDA, INDEPENDENT WITH ADL's. PT DENIED CHEST PAIN/PRESSURE/SOB. RESP RATE EVEN AND UNLABORED, ON RA. PT SLEPT WELL OVERNIGHT. PT NPO, HAS A STRESS TEST AT 0800. PT ABLE TO MAKE NEEDS KNOWN, CALL LIGHT WITHIN REACH, WCTM.
[2023-09-03 07:30] VITALS: BP 115/62
[2023-09-03 14:42] VITALS: BP 131/66
--- NOTE | 2023-09-03 17:44 | NUR ---
SHIFT SUMMARY 1430 ASSUMED CARE OF PT. RESTING QUIETLY AWAKE, TALKING WITH DR BARROSO. NEW ORDERS PLACED. PT TO RESTART COUMADIN AND STOP HEPARIN. PT ALSO START ON IMDUR. PER REPORT, PT TO F/U WITH CARDIOLOGY OUTPT AFTER TAKING IMDUR FOR 30 DAYS. 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 PT IS VERY PLEASANT AND CO-OP. INDEPENDENT TO SHOWER THIS AM. DENIED FURTHER NEEDS AT THIS TIME. REPORTED THAT HE IS GOING HOME TOMORROW. CALL LT IN REACH.
[2023-09-03 19:54] VITALS: BP 101/51
--- NOTE | 2023-09-04 03:10 | NUR ---
END OF SHIFT SUMMARY PT A&O x4, VSS, AFEBRILE. PT PLEASANT AND COOPERATIVE WITH CARE PROVIDED. UNEVENTFUL NIGHT. PT C/O BILAT SHOULDER AND NECK PAIN A /. PRN IV FENTANYL GIVEN, WHICH WAS EFFECTIVE. CBG's STABLE, NO INSULIN WAS GIVEN D/T SLIDING INSULIN SCALE. PT DENITED CHEST PAIN/PRESSURE, NO C/O SHORTNESS OF BREATH. PT ON RA, OXYGEN SAT AT 96%. PT CALLS APPROPRIATELY, IS ABLE TO MAKE NEEDS KNOWN. CALL LIGHT WITHIN REACH, WCTM. REPORT WAS GIVEN TO ISAIAH MARES, FOR THE REMAINDER OF THIS SHIFT.
[2023-09-04 03:15] VITALS: BP 114/57
--- NOTE | 2023-09-04 03:20 | NUR ---
END OF SHIFT SUMMARY PT A&O x4, VSS, AFEBRILE. PT PLEASANT AND COOPERATIVE WITH CARE PROVIDED. PT SLEPT ON AND OFF THOUGH THE NIGHT. PT DENIED CHEST PAIN/PRESSURE, AND SHORTNESS OF BREATH. RESP RATE EVEN AND UNLABORED. PT ON RA, OXYGEN SAT AT 96%. PAIN MANAGED WITH PRN IV FENTANYL FOR SHOULDER/NECK/BACK PAIN RATED A 8/10. CBG's STABLE, NO INSULIN GIVEN ACCORDING TO THE SLIDING INSULIN SCALE. PT CALLS APPROPRIATELY, IS ABLE TO MAKE NEEDS KNOWN. PT STATED THAT DOCTOR MENTIONED POSSIBILITY FOR D/C TODAY. REPORT FOR THE REMAINDER OF THIS SHIFT WAS GIVEN TO ISAIAH MIXON.
--- NOTE | 2023-09-04 03:59 | NUR ---
CONSTRUCTION PROJECT ADMINISTRATOR SUMMARY VSS. UP AD WANDA. NO C/O CHEST PAIN. AFFECT CHEERFUL WHEN SPEAKING TO STAFF. TAKES CARE OF OSTOM BY SELF. HAS BEEN RESTING QUIETLY WITH OCCASIONAL INTERUPTIONS. CALL LIGHT IN REACH. WILL CONTINUE TO MONITOR
[2023-09-04 05:29] LABS: International Normalized Ratio 2.23; Prothrombin Time Results 22.4 Sec (9.7-11.5)
[2023-09-04 07:28] VITALS: BP 112/53
[2023-09-04] MEDS ORDERED: Isosorbide Mono30 MG PO (14:17)
--- NOTE | 2023-09-04 14:57 | NUR ---
Patient up to Ambulate independently. Gait steady. Discharge instructions reviewed with patient. Patient verbalizes understanding. Copy given to patient to take home. Patient States Post-Procedure ride home has been arranged. Discharged via wheelchair to private car for ride home. PATIENT'S IV WAS REMOVED BEFORE DISCHARGE.
== END 2023-09-04 13:48 | disposition home or self-care (01) ==
LOC: ER 19:17 → MEDS 19:18 → ENPENDDIS 09-04 14:51
PROVIDERS: Emergency Medicine; Pharmacist; ADMIT Internal Medicine
DX: R07.89 Other chest pain (principal); I13.0 Hypertensive heart and chronic kidney disease with heart failure and stage 1 through stage 4 chronic kidney disease, or unspecified chronic kidney disease; E11.22 Type 2 diabetes mellitus with diabetic chronic kidney disease; N18.30 Chronic kidney disease, stage 3 unspecified; I50.32 Chronic diastolic (congestive) heart failure; I48.0 Paroxysmal atrial fibrillation; E78.5 Hyperlipidemia, unspecified; I25.10 Atherosclerotic heart disease of native coronary artery without angina pectoris; I25.2 Old myocardial infarction; G47.33 Obstructive sleep apnea (adult) (pediatric); Z66 Do not resuscitate; Z79.01 Long term (current) use of anticoagulants; Z79.899 Other long term (current) drug therapy
CPT/HCPCS: 36415; 71045; 78452; 80053; 82947; 84484; 85025; 85610; 85730; 93005; 93010; 93017; 96374; 99285-25; A9270; A9500; C8929; G0378; J0280; J1650; J2785; J3010; Q9957

== ENCOUNTER 2023-12-11 19:26 | Inpatient (IN) | payer MEDICARE ==
[~2023-12-11] VITALS: Ht 172.7 cm; Wt 95.2 kg
[~2023-12-11 19:26] MED LIST changes: +Isosorbide Mono30 MG PO
[2023-12-11 19:55] LABS: Source, Urine Clean Catch
[2023-12-11 20:02] LABS: Appearance, Urine Clear (Clear); BASOPHILS ABSOLUTE AUTO 0.04 K/mm3 (0.00-0.23); BASOPHILS PERCENT AUTO 0 % (0-2); Bilirubin, Urine Neg (Neg); Blood, Urine Neg (Neg); Color, Urine Yellow (P-Yellow); EOSINOPHILS ABSOLUTE AUTO 0.14 K/mm3 (0.00-0.68); EOSINOPHILS PERCENT AUTO 1 % (0-6); Glucose Qualitative, Urine Neg (Neg); Hematocrit 38.7 % (37.0-53.0); Hemoglobin 12.8 g/dL (13.5-17.5); IMMATURE GRAN ABSOLUTE AUTO 0.06 K/mm3 (0.00-0.10); IMMATURE GRAN PERCENT AUTO 1 % (0-1); Ketones, Urine Neg (Neg); LYMPHOCYTES PERCENT AUTO 23 % (21-46); Leukocyte Esterase, Urine Neg (Neg); MONOCYTES ABSOLUTE AUTO 1.18 K/mm3 (0.16-1.47); MONOCYTES PERCENT AUTO 9 % (4-13); Mean Corpuscular HGB 32.3 pg (26.0-34.0); Mean Corpuscular HGB Conc 33.1 g/dL (31.5-36.5); Mean Corpuscular Volume 98 fL (80-100); Mean Platelet Volume 10.9 fL (9.1-12.4); NEUTROPHILS ABSOLUTE AUTO 8.47 K/mm3 (1.96-9.15); NEUTROPHILS PERCENT AUTO 66 % (41-73); Nitrite, Urine Neg (Neg); Platelet Count 207 K/mm3 (150-400); Protein, Urine Neg (Neg); RDW Coefficient Variation 13.2 % (11.7-14.2); RDW Standard Deviation 47.1 fL (35.1-46.3); Red Blood Cell Count 3.96 M/mm3 (4.30-5.90); Urobilinogen, Urine NORM (Normal); White Blood Cell Count 12.79 K/mm3 (4.00-11.30)
[2023-12-11 20:27] LABS: Albumin, Blood 3.8 g/dL (3.4-5.0); Albumin/Globulin Ratio 1.1 (0.8-1.8); Bilirubin, Total 0.5 mg/dL (0.1-1.0); Bun/Creatinine Ratio 23.8 (12.0-20.0); Calcium, Blood 9.4 mg/dL (8.5-10.1); Creatinine, Blood 1.05 mg/dL (0.60-1.20); Globulin, Blood 3.6 g/dL (2.2-4.0); Potassium, Blood 3.8 mmol/L (3.5-5.5); Total Protein, Blood 7.4 g/dL (6.4-8.2)
[2023-12-12] VITALS (7 sets, daily range): BP systolic 99–190; BP diastolic 47–71
--- NOTE | 2023-12-12 03:22 | NUR ---
SHIFT SUMMARY PT NEW ADMIT THIS AM. AAOX4. DISCOMFORT CONTROLLED WITH 4MG IV MORPHINE X1, DENIES NAUSEA/EMESIS. OSTOMY WITH NEWLY PLACED BAG C/D/I, SCANT OUTPUT IN OSTOMY BAG. PT REPORTS LAST EMPTYING BAG ON 12/11 AT 1400. ABD TENDER WITH PALPATION. SBA WITH FWW TO URINATE, TRANSFERS WELL. PT ORIENTED TO ROOM + CALL LIGHT USE, RESTING WELL THIS AM POST ADMISSION. AWAITING FAMILY TO BRING IN MEDICATION LIST THIS AM. BED ALARM ON FOR SAFETY + CALL LIGHT IN REACH.
[2023-12-12 05:50] LABS: BASOPHILS ABSOLUTE AUTO 0.01 K/mm3 (0.00-0.23); BASOPHILS PERCENT AUTO 0 % (0-2); EOSINOPHILS PERCENT AUTO 0 % (0-6); Hematocrit 37.5 % (37.0-53.0); Hemoglobin 12.2 g/dL (13.5-17.5); IMMATURE GRAN ABSOLUTE AUTO 0.03 K/mm3 (0.00-0.10); IMMATURE GRAN PERCENT AUTO 0 % (0-1); LYMPHOCYTES ABSOLUTE AUTO 1.01 K/mm3 (0.84-5.20); LYMPHOCYTES PERCENT AUTO 11 % (21-46); MONOCYTES ABSOLUTE AUTO 0.77 K/mm3 (0.16-1.47); MONOCYTES PERCENT AUTO 8 % (4-13); Mean Corpuscular HGB 32.4 pg (26.0-34.0); Mean Corpuscular HGB Conc 32.5 g/dL (31.5-36.5); Mean Corpuscular Volume 100 fL (80-100); Mean Platelet Volume 10.6 fL (9.1-12.4); NEUTROPHILS ABSOLUTE AUTO 7.72 K/mm3 (1.96-9.15); NEUTROPHILS PERCENT AUTO 81 % (41-73); Platelet Count 179 K/mm3 (150-400); RDW Coefficient Variation 13.4 % (11.7-14.2); RDW Standard Deviation 49.1 fL (35.1-46.3); Red Blood Cell Count 3.77 M/mm3 (4.30-5.90); White Blood Cell Count 9.54 K/mm3 (4.00-11.30)
[2023-12-12 06:18] LABS: Albumin, Blood 3.3 g/dL (3.4-5.0); Bilirubin, Total 0.4 mg/dL (0.1-1.0); Bun/Creatinine Ratio 19.4 (12.0-20.0); Calcium, Blood 8.9 mg/dL (8.5-10.1); Creatinine, Blood 1.03 mg/dL (0.60-1.20); Globulin, Blood 3.2 g/dL (2.2-4.0); Potassium, Blood 4.2 mmol/L (3.5-5.5); Total Protein, Blood 6.5 g/dL (6.4-8.2)
--- NOTE | 2023-12-12 18:32 | NUR ---
SHIFT SUMMARY PT HAS DONE WELL TODAY. OUTPUT IS SOFT w/ HARD BALLS. TOLERATING CLEAR LQ's WELL. DENIES N/V, BUT STATES IT JUST ISN'T APPEALING. DENIES SIGNIFICANT PAIN.
[2023-12-12 20:20] LABS: International Normalized Ratio 1.3; Prothrombin Time Results 13.4 Sec (9.7-11.5)
[2023-12-13 02:47] VITALS: BP 154/69
--- NOTE | 2023-12-13 04:18 | NUR ---
SHIFT SUMMARY PT RESTED WELL T/O NIGHT. INDEP TO RESTROOM. EMPTIED OSTOMY X1 WITH LIQUID + HARD STOOL. DENIES ABD PAIN AND N/V. IVF INFUSING PER ORDERS. PT LOOKING FORWARD TO ADVANCING DIET TO FULL LIQ FOR BREAKFAST. USES CALL LIGHT APPROPRIATELY.
[2023-12-13 04:53] LABS: BASOPHILS ABSOLUTE AUTO 0.02 K/mm3 (0.00-0.23); BASOPHILS PERCENT AUTO 0 % (0-2); EOSINOPHILS ABSOLUTE AUTO 0.13 K/mm3 (0.00-0.68); EOSINOPHILS PERCENT AUTO 2 % (0-6); Hematocrit 35.1 % (37.0-53.0); Hemoglobin 11.3 g/dL (13.5-17.5); IMMATURE GRAN ABSOLUTE AUTO 0.02 K/mm3 (0.00-0.10); IMMATURE GRAN PERCENT AUTO 0 % (0-1); LYMPHOCYTES ABSOLUTE AUTO 0.94 K/mm3 (0.84-5.20); LYMPHOCYTES PERCENT AUTO 16 % (21-46); MONOCYTES ABSOLUTE AUTO 0.78 K/mm3 (0.16-1.47); MONOCYTES PERCENT AUTO 14 % (4-13); Mean Corpuscular HGB 32.5 pg (26.0-34.0); Mean Corpuscular HGB Conc 32.2 g/dL (31.5-36.5); Mean Corpuscular Volume 101 fL (80-100); Mean Platelet Volume 10.7 fL (9.1-12.4); NEUTROPHILS ABSOLUTE AUTO 3.88 K/mm3 (1.96-9.15); NEUTROPHILS PERCENT AUTO 67 % (41-73); Platelet Count 151 K/mm3 (150-400); RDW Coefficient Variation 13.5 % (11.7-14.2); RDW Standard Deviation 50.2 fL (35.1-46.3); Red Blood Cell Count 3.48 M/mm3 (4.30-5.90); White Blood Cell Count 5.77 K/mm3 (4.00-11.30)
[2023-12-13 05:12] LABS: International Normalized Ratio 1.32; Prothrombin Time Results 13.6 Sec (9.7-11.5)
[2023-12-13 05:44] LABS: Bun/Creatinine Ratio 13.9 (12.0-20.0); Calcium, Blood 8.7 mg/dL (8.5-10.1); Creatinine, Blood 1.01 mg/dL (0.60-1.20); Potassium, Blood 3.7 mmol/L (3.5-5.5)
[2023-12-13 07:00] VITALS: BP 167/72
[2023-12-13] MEDS ORDERED: MELA3 PO (12:49)
[2023-12-13] MEDS ORDERED: MIRALAX17 GM PO (12:50)
[2023-12-13] MEDS ORDERED: AMLO5 PO (12:50)
--- NOTE | 2023-12-13 13:27 | NUR ---
DISCHARGE TRANSPORTATION ARRIVED AT THIS TIME. ANEESH HORN. PT ESCORTED OUT VIA WC VIA STAFF.
== END 2023-12-13 13:33 | disposition home or self-care (01) | DRG 394 ==
LOC: ER 19:26 → SURS 23:46
PROVIDERS: Emergency Medicine; Family Medicine; Internal Medicine; ADMIT Internal Medicine
DX: K43.3 Parastomal hernia with obstruction, without gangrene (principal); C83.30 Diffuse large B-cell lymphoma, unspecified site; I50.32 Chronic diastolic (congestive) heart failure; I13.0 Hypertensive heart and chronic kidney disease with heart failure and stage 1 through stage 4 chronic kidney disease, or unspecified chronic kidney disease; M87.9 Osteonecrosis, unspecified; I48.0 Paroxysmal atrial fibrillation; E78.5 Hyperlipidemia, unspecified; Z66 Do not resuscitate; M81.0 Age-related osteoporosis without current pathological fracture; E11.22 Type 2 diabetes mellitus with diabetic chronic kidney disease; N18.30 Chronic kidney disease, stage 3 unspecified; I25.10 Atherosclerotic heart disease of native coronary artery without angina pectoris; K21.9 Gastro-esophageal reflux disease without esophagitis; G47.33 Obstructive sleep apnea (adult) (pediatric); I25.2 Old myocardial infarction; Z92.21 Personal history of antineoplastic chemotherapy; Z95.5 Presence of coronary angioplasty implant and graft; Z85.038 Personal history of other malignant neoplasm of large intestine; Z90.49 Acquired absence of other specified parts of digestive tract; Z93.3 Colostomy status; Z79.01 Long term (current) use of anticoagulants; Z92.3 Personal history of irradiation
CPT/HCPCS: 36415; 74177; 80048; 80053; 81003; 82947; 83690; 85025; 85610; 93005; 93010; 94762; A9270; C9113; J0360; J1170; J2270; J2405; J7030; Q9967

== ENCOUNTER 2024-06-25 15:02 | Emergency (ER) | payer MEDICARE ==
[~2024-06-25] VITALS: Ht 172.7 cm; Wt 93.0 kg
[~2024-06-25 15:02] MED LIST changes: +MELA3 PO; +MIRALAX17 GM PO
[2024-06-25 15:33] LABS: BASOPHILS ABSOLUTE AUTO 0.02 K/mm3 (0.00-0.23); BASOPHILS PERCENT AUTO 0 % (0-2); EOSINOPHILS ABSOLUTE AUTO 0.06 K/mm3 (0.00-0.68); EOSINOPHILS PERCENT AUTO 1 % (0-6); Hematocrit 34.9 % (37.0-53.0); Hemoglobin 11.4 g/dL (13.5-17.5); IMMATURE GRAN ABSOLUTE AUTO 0.02 K/mm3 (0.00-0.10); IMMATURE GRAN PERCENT AUTO 0 % (0-1); LYMPHOCYTES ABSOLUTE AUTO 1.54 K/mm3 (0.84-5.20); LYMPHOCYTES PERCENT AUTO 23 % (21-46); MONOCYTES ABSOLUTE AUTO 0.76 K/mm3 (0.16-1.47); MONOCYTES PERCENT AUTO 11 % (4-13); Mean Corpuscular HGB 32.7 pg (26.0-34.0); Mean Corpuscular HGB Conc 32.7 g/dL (31.5-36.5); Mean Corpuscular Volume 100 fL (80-100); Mean Platelet Volume 10.3 fL (9.1-12.4); NEUTROPHILS ABSOLUTE AUTO 4.37 K/mm3 (1.96-9.15); NEUTROPHILS PERCENT AUTO 65 % (41-73); Platelet Count 180 K/mm3 (150-400); RDW Standard Deviation 50.6 fL (35.1-46.3); Red Blood Cell Count 3.49 M/mm3 (4.30-5.90); White Blood Cell Count 6.77 K/mm3 (4.00-11.30)
[2024-06-25 15:59] LABS: Albumin, Blood 3.5 g/dL (3.4-5.0); Albumin/Globulin Ratio 1.1 (0.8-1.8); Bilirubin, Total 0.7 mg/dL (0.1-1.0); Calcium, Blood 9.1 mg/dL (8.5-10.1); Creatinine, Blood 1.32 mg/dL (0.60-1.20); Globulin, Blood 3.3 g/dL (2.2-4.0); Potassium, Blood 4.4 mmol/L (3.5-5.5); Total Protein, Blood 6.8 g/dL (6.4-8.2)
[2024-06-25 16:22] LABS: Source, Urine Voided
[2024-06-25 16:29] LABS: Appearance, Urine Clear (Clear); Bilirubin, Urine Neg (Neg); Blood, Urine Neg (Neg); Glucose Qualitative, Urine Neg (Neg); Ketones, Urine Neg (Neg); Leukocyte Esterase, Urine Neg (Neg); Nitrite, Urine Neg (Neg); Protein, Urine Neg (Neg); Specific Gravity, Urine 1.015 (1.003-1.022); Urobilinogen, Urine NORM (Normal)
[2024-06-25 17:24] LABS: Color, Urine Pale Yellow (P-Yellow)
[2024-06-25 17:45] VITALS: BP 175/69
== END 2024-06-25 18:34 | disposition home or self-care (01) ==
LOC: ER 15:02
PROVIDERS: Emergency Medicine
DX: R41.3 Other amnesia (principal); I48.0 Paroxysmal atrial fibrillation; I13.0 Hypertensive heart and chronic kidney disease with heart failure and stage 1 through stage 4 chronic kidney disease, or unspecified chronic kidney disease; E11.22 Type 2 diabetes mellitus with diabetic chronic kidney disease; N18.30 Chronic kidney disease, stage 3 unspecified; I50.30 Unspecified diastolic (congestive) heart failure; I25.10 Atherosclerotic heart disease of native coronary artery without angina pectoris; I25.2 Old myocardial infarction; E78.5 Hyperlipidemia, unspecified; Z79.01 Long term (current) use of anticoagulants; Z79.899 Other long term (current) drug therapy
CPT/HCPCS: 70450; 80053; 81003; 85025

== ENCOUNTER 2024-11-09 15:58 | Inpatient (IN) | payer MEDICARE ==
[~2024-11-09] VITALS: Ht 172.7 cm; Wt 88.5 kg
[2024-11-09 16:16] LABS: BASOPHILS ABSOLUTE AUTO 0.01 K/mm3 (0.00-0.23); BASOPHILS PERCENT AUTO 0 % (0-2); EOSINOPHILS ABSOLUTE AUTO 0.09 K/mm3 (0.00-0.68); EOSINOPHILS PERCENT AUTO 1 % (0-6); Hematocrit 30.7 % (37.0-53.0); Hemoglobin 10.1 g/dL (13.5-17.5); IMMATURE GRAN ABSOLUTE AUTO 0.02 K/mm3 (0.00-0.10); IMMATURE GRAN PERCENT AUTO 0 % (0-1); LYMPHOCYTES PERCENT AUTO 24 % (21-46); MONOCYTES ABSOLUTE AUTO 0.74 K/mm3 (0.16-1.47); MONOCYTES PERCENT AUTO 10 % (4-13); Mean Corpuscular HGB 31.3 pg (26.0-34.0); Mean Corpuscular HGB Conc 32.9 g/dL (31.5-36.5); Mean Corpuscular Volume 95 fL (80-100); Mean Platelet Volume 10.2 fL (9.1-12.4); NEUTROPHILS ABSOLUTE AUTO 4.68 K/mm3 (1.96-9.15); NEUTROPHILS PERCENT AUTO 65 % (41-73); Platelet Count 200 K/mm3 (150-400); RDW Coefficient Variation 13.8 % (11.7-14.2); RDW Standard Deviation 48.2 fL (35.1-46.3); Red Blood Cell Count 3.23 M/mm3 (4.30-5.90); White Blood Cell Count 7.24 K/mm3 (4.00-11.30)
[2024-11-09 16:38] LABS: Albumin, Blood 3.5 g/dL (3.4-5.0); Albumin/Globulin Ratio 1.2 (0.8-1.8); Bilirubin, Total 0.3 mg/dL (0.1-1.0); Bun/Creatinine Ratio 23.8 (12.0-20.0); Calcium, Blood 9.2 mg/dL (8.5-10.1); Creatinine, Blood 1.22 mg/dL (0.60-1.20); Total Protein, Blood 6.5 g/dL (6.4-8.2)
[2024-11-09 16:49] LABS: International Normalized Ratio 1.03
[2024-11-09] MEDS ORDERED: ALLO100 PO (16:51)
[2024-11-09] MEDS ORDERED: AMLO10 PO (16:52)
[2024-11-09] MEDS ORDERED: DOCU100 PO (16:52)
[2024-11-09] MEDS ORDERED: ATOR10 PO (16:52)
[2024-11-09] MEDS ORDERED: ELIQUIS5 M2 PO (16:53)
[2024-11-09] MEDS ORDERED: HYDROCODONE-AC1 EA19 PO (16:56)
[2024-11-09] MEDS ORDERED: Isosorbide Mono30 MG PO (16:56)
[2024-11-09] MEDS ORDERED: LOSA50 PO (16:57)
[2024-11-09] MEDS ORDERED: METO100 PO (16:58)
[2024-11-09] MEDS ORDERED: MELATONIN5 M4 PO (16:58)
[2024-11-09] MEDS ORDERED: PIOG15 PO (16:58)
[2024-11-09] MEDS ORDERED: OMEP20ER PO (16:58)
[2024-11-09] MEDS ORDERED: ACET500 (16:59)
[2024-11-09] MEDS ORDERED: MIRALAX11910 PO (16:59)
[2024-11-09] MEDS ORDERED: Aspirin 325 MG Tab PO ONE (18:00)
[2024-11-09] MEDS ORDERED: FLU VACC TS2024-25(6MOS UP)/PF 45 MCG/0.5 ML SYRINGE IM ONE (20:00)
[2024-11-09 21:02] VITALS: BP 166/90
[2024-11-10] VITALS (7 sets, daily range): BP systolic 105–173; BP diastolic 53–73
--- NOTE | 2024-11-10 04:33 | NUR ---
SHIFT SUMMARY: PT AOX4 CALLS APPROPRIATELY. ABLE TO STAND AND WALK TO THE BATHROOM WITH 1PA. NO COMPLAINTS OF NUMBNESS OR FLACIDITY, STATES THAT L ARM IS A LITTLE WEAKER BUT ABLE TO USE RESTROOM. DENIES PAIN OR DISCOMFORT. SLEPT WELL THROUGH THE NIGHT AND FOLLOWS COMMANDS. CURRENTLY SLEEPING IN BED, BED IN LOWEST POSITION, CALL LIGHT IN REACH. CONTINUING CARE.
[2024-11-10] MEDS ORDERED: Omeprazole 20 MG CapCR PO SCH (06:00)
[2024-11-10] MEDS ORDERED: Insulin Human Lispro 100 Units/ML 3ML Syringe SC SCH (07:30)
[2024-11-10] MEDS ORDERED: Atorvastatin 10 MG Tab PO SCH (09:00)
--- NOTE | 2024-11-10 10:24 | NUR ---
CALLED DR. DIAZ AT 0937 REGUARDING PATIENT'S HOME MEDS AND THAT THEY ARE NOT ORDERED AND WOULD LIKE HIS MED LIST TO BE RECONCILED IN ORDER TO DO HIS MORNING MEDICATIONS; BASED ON AUBREY CART[employer] STAPLER NOTE FROM LAST NIGHT PATIENT IS TO CONTINUE HOME MEDS; SUCH ELIQUIS, WHICH WAS NOT ORDERED. PATIENT HASN'T HAD ELIQUIS SINCE YESTERDAY MORNING. DR. DIAZ HE WOULD REVIEW PATIENT'S CHART. NO NEW ORDERS YET AT THIS TIME.
--- NOTE | 2024-11-10 11:56 | NUR ---
PATIENT NOTIFIED THIS RN THAT HE DEVELOPED CHEST PRESSURE ON THIS L SIDE THAT RADIATED UP TO HIS L NECK AT 1100; PT NOTIFIED THIS RN AT 1130. TELE WAS CALLED NO EVENTS, VITALS OBATINED; STABLE, AND PATIENT STATES THAT SENSATION IMPROVED, BUT NOT GONE. EKG OBTAINED AND WAS STABLE, PT REPORTED THAT SENSATION SUBSIDED. DR. DIAZ NOTIFIED AND SHOWN EKG. NO NEW ORDERS AT THIS TIME. NO SIGNS OR SYMPTOMS OF DISTRESS WITH PATIENT.
--- NOTE | 2024-11-10 12:23 | NUR ---
SPOKE WITH DR. DIAZ AGAIN REGUARDING ORDERS FOR PATIENT'S HOME MEDICATIONS. LET HIM KNOW THAT THE MED REC IS UP TO DATE. DR. DIAZ ASKED IF THE PATIENT COULD BE DISCHARGED AND IF THAT HIS DEFECIT IN HIS L SIDE IS GONE; I REPORTED NO. ECHO JUST COMPLETED AND PENDING RECORDS FROM [facility] ON HIS CURRENT STENTS TO SEE IF MRI COULD BE PREFORMED. DR. DIAZ VOICED UNDERSTANDING AND STATES HE WILL GO SEE PATIENT AND PLACE ORDERS.
[2024-11-10] MEDS ORDERED: HydrALAZINE HCl 20 MG / ML 1ML Vial IV PRN (12:40)
[2024-11-10] MEDS ORDERED: Isosorbide Mononitrate 60 MG TABCR PO SCH ×2 (13:00→21:00)
[2024-11-10] MEDS ORDERED: Allopurinol 100 MG Tab PO SCH (13:00)
[2024-11-10] MEDS ORDERED: Nitroglycerin 0.4 MG SUBL SL ONE (15:15)
--- NOTE | 2024-11-10 15:25 | NUR ---
PRIMARY RN CALLED RAPID D/T C/O BUE NUMBNESS AND TINGLING, ANGINA AND POSSIBLE STROKE Sx. PROVIDER CALLED BY BREAK NURSE, EFRAIN MONTE. VS OBTAINED. 138/118 @ REST, HR 88 VIA SPO2. . SPO2 99% ON RA. 97.5. EKG OBTAINED.
[2024-11-10] MEDS ORDERED: Aspirin 81 MG Chew PO ONE (15:27)
[2024-11-10] MEDS ORDERED: Morphine Sulfate 4 MG/1 ML Injection IV PRN (15:35)
--- NOTE | 2024-11-10 15:58 | NUR ---
THIS RN CAME BACK FROM [facility] AT 1515 WHEN THE BREAK NURSE NOTIFIED OF PATIENT REPORTING CHEST PAIN AND CALL MADE TO DR. DIAZ, EKG COMPLETED THAT SHOWED DIFFERENT FINDINGS THAN 1100 EKG AND ORDERS. THIS RN WENT INTO PATIENT'S ROOM TO CHECK ON PATIENT AND PATIENT SHORT OF BREATH/TACHYPNEIC, QUIVERING AND C/O BILATERAL ARM NUMBNESS AND TINGLING ALONG WITH CHEST PAIN THAT RADIATES ACROSS (PT REPORTED AFTER RAPID THAT IT WAS 9/10 PAIN.) DUE TO CHANGE IN CONDITION A RAPID RESPONSE WAS CALLED. RAPID RESPONSE STAFF ARRIVED TO ROOM 357; VITALS AND ASSESSMENT OBTAINED. INFORMATION PROVIDED TO RAPID REPONSE TEAM. DR. DIAZ WAS CALLED DURING THE RAPID; HE GAVE TELEPHONE ORDERS TO FOLLOW THROUGH WITH THE ASPIRIN AND NITRO THAT WAS ORDERED WHEN CALL WAS MADE BY BREAK NURSE ISAIAH ZUNIGA. ALONG WITH STARTING A HEPARIN DRIP, METOPROLOL 25MG, AND IV MORPHIN 4 MG NOW AND TO TRANSFER PATIENT TO PCU. DURING THE RAPID PATIENT CONTINUED TO C/O CHEST PRESSURE AND PAIN, BILATERAL ARM NUMBNESS AND DECREASED RANGE OF MOTION; DECREASED STRENGTH ON R SIDE VERSUS ASSESSMENT ON STRENGTH ON THIS MORNING ASSESSMENT. PATIENT STATED "I FEEL LIKE HELL" DURING RAPID, IV MORPHINE WAS PUSHED AND PATIENT REPONSE CHANGED TO " I FEEL PRETTY GOOD RIGHT NOW" PATIENT CONTINUES TO COMPLAIN OF CHEST PRESSURE; MORE ON THE L SIDE AND THE BILATERAL ARM NUMBNESS/TINGLING/DECREASED STRENTH/ROM. PATIENT APPEARING STABLE; RAPID COMPLETED, ALONG WITH ORDERS, AND AWAITING FOR PCU TRANSFER ROOM TO BE CLEAN PRIOR TO TAKING PATIENT DOWN; REPORT GIVEN. PATIENT CURRENTLY IN BED, ALERT, REPORTS THAT CHEST PRESSURE HAS SUBSIDED, BUT L ARM STILL THE SAME AND NUMBNESS/TINGLING IN R HAND.
[2024-11-10] MEDS ORDERED: Heparin Sodium 5000 Units/ML 1ML MDV SC SCH (16:00)
[2024-11-10] MEDS ORDERED: Metoprolol Tartrate 25 MG Tab PO SCH (16:00)
[2024-11-10] MEDS ORDERED: Heparin Sodium,Porcine/0.5 NS 500 ML IV SCH (16:30)
--- NOTE | 2024-11-10 17:10 | NUR ---
RECEIVED A CALL FROM WOODS OVERSEER AND STATED HE WANTED TO GERIFY THAT PATIENT WILL NOT RECEIVE ANY HEPARIN AND MD CONKLIN'D ORDER.
--- NOTE | 2024-11-10 17:44 | NUR ---
AT APPROXIMATELY 1700, THIS RN RECEIVED A PHONE CALL FROM THE [facility] HOSPITALIST (DR DIAZ). DR DIAZ STATED THAT NURSING WAS TO HOLD THE HEPARIN DRIP THAT WAS TO START AT APPROX 1710. DR DIAZ STATED THAT, PER DR HENSON, THE HEPARIN DRIP WAS CONTRAINDICATED. DR JOE CALLOWAY STATED THAT NURSING WAS TO ONLY GIVE HEPARIN SC, AND TO GIVE OTHER DVT PROPHYLAXIS NOT TO INCLUDE THE HEPARIN DRIP. THIS INFORMATION WAS PASSED TO THE PT'S PRIMARY NURSE, EDDIE Hensley RN.
[2024-11-10] MEDS ORDERED: Ranolazine 500 MG ER Tablet PO SCH (18:00)
[2024-11-10] MEDS ORDERED: Metoprolol Succinate 50 MG TABCR PO SCH (18:00)
--- NOTE | 2024-11-10 18:04 | NUR ---
SHIFT SUMMARY: PATIENT ARRIVED TO UNIT VIA BED. PATIENT IS ALERT AND ORIENTED X4 AND ACTIVE IN HIS CARE. DENIED CHEST PAIN/PRESSURE OR FEELING SOB. VITAL SIGNS STABLE. NEURO ASSESSMENT DONE, PATIENT REPORTS WEAKNESS AND LIMITED RANGE OF MOTION IN BOTH ARMS. DENIED ANY NUMBNESS OR TINGLING SENSATION. PATIENT ORIENTED TO THE ROOM AND FAMILY WAS NOTIFIED OF FLOOR CHANGE. MEDICATIONS WERE GIVEN PER EMAR AND PATIENT IS RESTING WITH BED IN LOWEST POSITION AND CALL LIGHT WITHIN REACH.
[2024-11-10] MEDS ORDERED: Atorvastatin 40 MG Tab PO SCH ×2 (21:00)
[2024-11-11 04:06] VITALS: BP 130/63
--- NOTE | 2024-11-11 05:10 | NUR ---
PT REMAINS A&OX4. VSS ON RA. PT HAD NO C/O CHEST PAIN THROUGHOUT NIGHT. PT CONTINUES TO BE WEAKER ON THE LEFT SIDE. PT TAKEN TO BATHROOM WITH ONE PERSON ASSIST. PTS COLOSTOMY BAG EMPTIED. NO FURTHER QUESTIONS OR CONCERNS AT THIS TIME. WILL CONTINUE TO MONITOR UNTIL REPORT IS GIVEN TO ONCOMING NURSE.
[2024-11-11 05:21] LABS: BASOPHILS ABSOLUTE AUTO 0.01 K/mm3 (0.00-0.23); BASOPHILS PERCENT AUTO 0 % (0-2); EOSINOPHILS PERCENT AUTO 1 % (0-6); Hemoglobin 9.8 g/dL (13.5-17.5); IMMATURE GRAN ABSOLUTE AUTO 0.03 K/mm3 (0.00-0.10); IMMATURE GRAN PERCENT AUTO 0 % (0-1); LYMPHOCYTES PERCENT AUTO 19 % (21-46); MONOCYTES ABSOLUTE AUTO 0.92 K/mm3 (0.16-1.47); MONOCYTES PERCENT AUTO 13 % (4-13); Mean Corpuscular HGB 30.4 pg (26.0-34.0); Mean Corpuscular HGB Conc 32.7 g/dL (31.5-36.5); Mean Corpuscular Volume 93 fL (80-100); Mean Platelet Volume 10.5 fL (9.1-12.4); NEUTROPHILS ABSOLUTE AUTO 4.78 K/mm3 (1.96-9.15); NEUTROPHILS PERCENT AUTO 66 % (41-73); Platelet Count 209 K/mm3 (150-400); RDW Coefficient Variation 14.1 % (11.7-14.2); RDW Standard Deviation 47.3 fL (35.1-46.3); Red Blood Cell Count 3.22 M/mm3 (4.30-5.90); White Blood Cell Count 7.24 K/mm3 (4.00-11.30)
[2024-11-11 05:52] LABS: Albumin, Blood 3.3 g/dL (3.4-5.0); Albumin/Globulin Ratio 1.1 (0.8-1.8); Bilirubin, Total 0.5 mg/dL (0.1-1.0); Calcium, Blood 8.8 mg/dL (8.5-10.1); Creatinine, Blood 1.27 mg/dL (0.60-1.20); Globulin, Blood 2.9 g/dL (2.2-4.0); Potassium, Blood 3.9 mmol/L (3.5-5.5); Total Protein, Blood 6.2 g/dL (6.4-8.2)
[2024-11-11] MEDS ORDERED: Pantoprazole Sodium 20 MG Tab PO SCH (06:00)
[2024-11-11 07:34] VITALS: BP 128/57
[2024-11-11] MEDS ORDERED: Clopidogrel Bisulfate 75 MG Tab PO SCH (09:00)
[2024-11-11] MEDS ORDERED: Enoxaparin 40 MG/0.4 ML SYR SC SCH (09:00)
[2024-11-11] MEDS ORDERED: Aspirin 81 MG Chew PO SCH (09:00)
--- NOTE | 2024-11-11 14:10 | NUR ---
HANDOFF REPORT: PATIENT IS MEDICAL WITHOUT TELE STATUS. IS ALERT AND ORIENTED X4 AND ACTIVE IN HIS CARE. SATTING >92% ON ROOM AIR, EVEN AND UNLABORED RESPIRATIONS. IS ABLE TO MAKE NEEDS KNOWN AND USES CALL LIGHT APPROPRIATELY. IS SBA TO MANAGE LINES/CHORDS. PATIENT IS AWARE OF THE STATUS CHANGE AND THE NEW ROOM ASSIGNEMENT NUMBER. FAMILY CAME TO BEDSIDE AND WERE MADE AWARE WELL. REPORT GIVEN TO MARIA ANTONIA COLON
--- NOTE | 2024-11-11 15:50 | NUR ---
PT TRANSFERRED TO RM 311 CALLED REPORT TO SHANNON COLON. ALL BELONGINGS SENT WITH THE PT, PT PREFERRED TO CALL FAMILY HIMSELF ABOUT THE TRANSFER
[2024-11-11 15:53] VITALS: BP 175/82
--- NOTE | 2024-11-11 16:34 | NUR ---
CALL TO [facility]. SPOKE WITH JARAD WHO STATED TO SEND FAX THAT SAID "STAT" AND SHE WOULD HAVE A RESPONSE TO US WITHIN 2 HOURS. IT DOES APPEAR ANOTHER FAX WAS SENT TO THE SAME NUMBER TWICE. LETTERHEAD SENT WITH "STAT" TO PROVIDED NUMBER. JARAD SAID TO CALL IF NO RESPONSE IN THE NEXT TWO HOURS.
--- NOTE | 2024-11-11 17:06 | NUR ---
TRANSFER NOTE PATIENT TRANSFERRED TO ROOM 311 THIS EVENING FROM [facility], REPORT RECIEVED FROM [facility]. PATIENT SBP 170s UPON ARRIVAL, MD INFORMED VIA TELEPHONE AND NEW ORDERS RECIEVED FOR HYDRALAZINE 10MG Q4HR IV PRN FOR SBP >180. CHARGE NURSE INFORMED OF PATIENT NEEDING MRI AND NEEDING STENT HISTORY FROM [facility]. CHARGE NURSE ABLE TO SPEAK WITH JARAD FROM [facility] WHO STATED WOULD SEND OVER HISTORY WITHIN 2 HOURS. THEN WILL PLAN TO HAVE MRI IF APPLICAPLE WITH STENTS. PATIENT RESTING COMFROTABLY IN BED WITH NO CONCERNS AT THIS TIME.
[2024-11-11] MEDS ORDERED: HydrALAZINE HCl 20 MG / ML 1ML Vial IV PRN (17:10)
--- NOTE | 2024-11-11 18:00 | NUR ---
SHIFT SUMMARY PATIENT A/OX4, ABLE TO MAKE NEEDS KNOWN. PLEASANT AND COOPERATIVE WITH STAFF. COLOSTOMY TO LEFT LOWER ABDOMEN. SKIN ASSESSMENT COMPLETED UPON TRANSFER FROM PCU. PATIENT DENIES ANY PAIN. NO NEW CONCERNS SINCE TRANSFER.
[2024-11-11 20:36] VITALS: BP 143/55
--- NOTE | 2024-11-11 21:45 | NUR ---
NEW T-ORDER FROM ON-CALL HOSPITALIST JOYCELYN: MELATONIN 5MG PO QHS. ENTERED TO [employer], SEE EMAR. NO ADDITIONAL NEW ORDERS AT THIS TIME.
[2024-11-11] MEDS ORDERED: Melatonin 5 MG Tablet PO ONE (22:10)
--- NOTE | 2024-11-11 22:33 | NUR ---
ON-CALL HOSPITALIST JOYCELYN NOTIFIED @2231: MULTIPLE KNIFE EDGE TRIMMER OPERATOR JUANCHO RODRIGUEZ NOTIFIED THIS DIE DESIGNER THAT PT IS HAVING TRIGEMINI WITH PVC'S. PT IS ASYMPTOMATIC PER FOCUSED ASSESSMENT. VERIFYING SPECIALIST JOSÉ MIGUEL Valentine NOTIFIED.
[2024-11-12 03:40] VITALS: BP 112/44
--- NOTE | 2024-11-12 03:41 | NUR ---
SHIFT SUMMARY PT IS A&O X4 @HS. AROUND 0130, PT AWAKE, USED CALL LIGHT AND REPORTS LOOKING FOR HIS BROTHER. PT NOT ORIENTED TO PLACE OR PERSON. EASILY REORIENTED. PT ALSO REPORTED TO THE PRACTICE OR STUDENT TEACHER THAT FEELING CONFUSED. PRACTICE OR STUDENT TEACHER ABLE TO REORIENT THE PT. COLOSTOMY AT LLQ INTACT, PT TAKES CARE OF THE COLOSTOMY/EMPTIES WITHOUT ASSISTANCE. PT IS SBA WITH FWW TO THE RESTROOM. PT REPORTS AMBULATES WITH CANE AT HOME. TELE: SR @87 WITH 1ST DEGREE HB. PT DENIES PAIN/PRESSURE/SOB. PT REPORTS WOULD LIKE TO D/C TODAY. MRI QUESTIONARE COMPLETED WITH THE PT AND FAXED TO IMAGING. EKG SCHEDULED THIS AM AT 0500. STILL AWAITING MEDICAL RECORDS/ STENT HX INFORMATION VIA FAX FROM [facility]/JARAD. NO FAX RECEIVED OF NOW. SEE PREVIOUS NOTES REGARDING THE COMMUNICATION WITH [facility]. BED AT THE LOWEST POSITION, CALL LIGHT WITHIN REACH. PT IS ABLE TO MAKE HIS NEEDS KNOWN, AND IS COOPERATIVE WITH CARE.
[2024-11-12 03:43] VITALS: BP 110/55
[2024-11-12 07:32] VITALS: BP 103/60
[2024-11-12 10:28] VITALS: BP 97/56
[2024-11-12 14:17] VITALS: BP 112/56
[2024-11-12] MEDS ORDERED: RANO500T PO (17:48)
[2024-11-12] MEDS ORDERED: ASPIR 8181 M1 PO (17:48)
[2024-11-12] MEDS ORDERED: CLOP75 PO (17:48)
--- NOTE | 2024-11-12 18:39 | NUR ---
DISCHARGE NOTE- PT DISCHARGED HOME WITH HOME HEALTH. PT MEDS FAXED TO [facility] PER HIS REQUEST. PT GOT UP AND DRESSED HIMSELF, WHEN HE WAS READY TO GO HE WALKED INTO THE [facility] AND WAS PROVIDED A HOSPITAL WC TO AID IN DISCHARGE, PT IVS AND TELE WERE DC'D PRIOR OT DISCHARGE AND HE WAS ESCORTED OUT VIA WC BY THE PYROMETALLURGICAL ENGINEER. NO S&S OF DISTRESS NOTED AT THE TIME OF DISCHARGE.
[2024-11-12] MEDS ORDERED: Melatonin 5 MG Tablet PO SCH (21:00)
== END 2024-11-12 18:30 | disposition home health service (06) | DRG 65 ==
LOC: ER 15:58 → MEDS 15:59 → PCU 11-10 17:55 → MEDS 11-11 15:55
PROVIDERS: Emergency Medicine; Internal Medicine; ADMIT Student in an Organized Health Care Education/Training Program
DX: I63.9 Cerebral infarction, unspecified (principal); C83.30 Diffuse large B-cell lymphoma, unspecified site; G81.94 Hemiplegia, unspecified affecting left nondominant side; I13.0 Hypertensive heart and chronic kidney disease with heart failure and stage 1 through stage 4 chronic kidney disease, or unspecified chronic kidney disease; I50.32 Chronic diastolic (congestive) heart failure; E78.5 Hyperlipidemia, unspecified; E11.22 Type 2 diabetes mellitus with diabetic chronic kidney disease; N18.30 Chronic kidney disease, stage 3 unspecified; I25.119 Atherosclerotic heart disease of native coronary artery with unspecified angina pectoris; K21.9 Gastro-esophageal reflux disease without esophagitis; M47.896 Other spondylosis, lumbar region; G47.33 Obstructive sleep apnea (adult) (pediatric); I48.0 Paroxysmal atrial fibrillation; R79.1 Abnormal coagulation profile; I35.8 Other nonrheumatic aortic valve disorders; Z79.01 Long term (current) use of anticoagulants; Z79.899 Other long term (current) drug therapy; Z85.048 Personal history of other malignant neoplasm of rectum, rectosigmoid junction, and anus; I25.2 Old myocardial infarction; Z95.5 Presence of coronary angioplasty implant and graft; Z90.49 Acquired absence of other specified parts of digestive tract; Z28.21 Immunization not carried out because of patient refusal
CPT/HCPCS: 36415; 70450; 70496; 70498; 71045; 78580; 80053; 82947; 83036; 84484; 85025; 85379; 85610; 85730; 93005; 93010; 97112; 97116; 97161; 97165; 97530; 99285-25; A9270; A9540; C8929; J1644; J1650; J2270; J2470; Q9957; Q9967

== ENCOUNTER 2024-12-16 18:36 | Inpatient (IN) | payer MEDICARE ==
[~2024-12-16] VITALS: Ht 172.7 cm; Wt 88.6 kg
[~2024-12-16 18:36] MED LIST changes: +ACET500; +ASPIR 8181 M1 PO; +DOCU100 PO; +ELIQUIS5 M2 PO; +HYDROCODONE-AC1 EA19 PO; +MELATONIN5 M4 PO; +MIRALAX11910 PO; +RANO500T PO
[2024-12-16 20:08] LABS: BASOPHILS ABSOLUTE AUTO 0.02 K/mm3 (0.00-0.23); BASOPHILS PERCENT AUTO 0 % (0-2); EOSINOPHILS ABSOLUTE AUTO 0.03 K/mm3 (0.00-0.68); EOSINOPHILS PERCENT AUTO 0 % (0-6); Hematocrit 31.9 % (37.0-53.0); Hemoglobin 10.5 g/dL (13.5-17.5); IMMATURE GRAN ABSOLUTE AUTO 0.06 K/mm3 (0.00-0.10); IMMATURE GRAN PERCENT AUTO 1 % (0-1); LYMPHOCYTES ABSOLUTE AUTO 1.15 K/mm3 (0.84-5.20); LYMPHOCYTES PERCENT AUTO 10 % (21-46); MONOCYTES ABSOLUTE AUTO 0.73 K/mm3 (0.16-1.47); MONOCYTES PERCENT AUTO 6 % (4-13); Mean Corpuscular HGB 30.6 pg (26.0-34.0); Mean Corpuscular HGB Conc 32.9 g/dL (31.5-36.5); Mean Corpuscular Volume 93 fL (80-100); Mean Platelet Volume 10.2 fL (9.1-12.4); NEUTROPHILS ABSOLUTE AUTO 10.05 K/mm3 (1.96-9.15); NEUTROPHILS PERCENT AUTO 83 % (41-73); Platelet Count 224 K/mm3 (150-400); RDW Coefficient Variation 15.6 % (11.7-14.2); RDW Standard Deviation 53.2 fL (35.1-46.3); Red Blood Cell Count 3.43 M/mm3 (4.30-5.90); White Blood Cell Count 12.04 K/mm3 (4.00-11.30)
[2024-12-16 20:29] LABS: Albumin, Blood 3.8 g/dL (3.4-5.0); Albumin/Globulin Ratio 1.2 (0.8-1.8); Bilirubin, Total 0.5 mg/dL (0.1-1.0); Bun/Creatinine Ratio 22.7 (12.0-20.0); Calcium, Blood 9.9 mg/dL (8.5-10.1); Creatinine, Blood 1.19 mg/dL (0.60-1.20); Globulin, Blood 3.2 g/dL (2.2-4.0)
[2024-12-17] MEDS ORDERED: Acetaminophen 325 MG TABLET PO PRN (00:35)
[2024-12-17] MEDS ORDERED: FLU VACC TS2024-25(6MOS UP)/PF 45 MCG/0.5 ML SYRINGE IM ONE (00:35)
[2024-12-17] MEDS ORDERED: Ondansetron HCl 2 MG / ML 2ML Vial IV PRN (00:35)
[2024-12-17] MEDS ORDERED: HydrALAZINE HCl 20 MG / ML 1ML Vial IV PRN (00:40)
[2024-12-17] MEDS ORDERED: Lactated Ringer's 1,000 ML IV SCH ×2 (01:00→16:30)
[2024-12-17] MEDS ORDERED: Docusate Sodium 100 MG Cap PO PRN (02:20)
[2024-12-17] MEDS ORDERED: Melatonin 5 MG Tablet PO PRN (02:30)
[2024-12-17] MEDS ORDERED: Insulin Regular 100 UNIT/ML 10ML Vial SC SCH (06:00)
[2024-12-17 06:45] LABS: Source, Urine Clean Catch
[2024-12-17 06:53] LABS: Bilirubin, Urine Neg (Neg); Blood, Urine Neg (Neg); Glucose Qualitative, Urine Neg (Neg); Ketones, Urine Neg (Neg); Leukocyte Esterase, Urine Neg (Neg); Nitrite, Urine Neg (Neg); Protein, Urine Neg (Neg); Urobilinogen, Urine NORM (Normal)
[2024-12-17 06:55] LABS: Appearance, Urine Clear (Clear); Color, Urine Yellow (P-Yellow)
[2024-12-17 07:26] LABS: BASOPHILS ABSOLUTE AUTO 0.02 K/mm3 (0.00-0.23); BASOPHILS PERCENT AUTO 0 % (0-2); EOSINOPHILS ABSOLUTE AUTO 0.04 K/mm3 (0.00-0.68); EOSINOPHILS PERCENT AUTO 0 % (0-6); Hematocrit 32.1 % (37.0-53.0); Hemoglobin 10.5 g/dL (13.5-17.5); IMMATURE GRAN ABSOLUTE AUTO 0.04 K/mm3 (0.00-0.10); IMMATURE GRAN PERCENT AUTO 0 % (0-1); LYMPHOCYTES ABSOLUTE AUTO 1.28 K/mm3 (0.84-5.20); LYMPHOCYTES PERCENT AUTO 14 % (21-46); MONOCYTES ABSOLUTE AUTO 0.85 K/mm3 (0.16-1.47); MONOCYTES PERCENT AUTO 9 % (4-13); Mean Corpuscular HGB 30.7 pg (26.0-34.0); Mean Corpuscular HGB Conc 32.7 g/dL (31.5-36.5); Mean Corpuscular Volume 94 fL (80-100); Mean Platelet Volume 10.5 fL (9.1-12.4); NEUTROPHILS ABSOLUTE AUTO 7.23 K/mm3 (1.96-9.15); NEUTROPHILS PERCENT AUTO 77 % (41-73); Platelet Count 225 K/mm3 (150-400); RDW Coefficient Variation 15.9 % (11.7-14.2); RDW Standard Deviation 54.2 fL (35.1-46.3); Red Blood Cell Count 3.42 M/mm3 (4.30-5.90); White Blood Cell Count 9.46 K/mm3 (4.00-11.30)
[2024-12-17 07:37] LABS: Albumin, Blood 3.5 g/dL (3.4-5.0); Albumin/Globulin Ratio 1.1 (0.8-1.8); Bilirubin, Total 0.4 mg/dL (0.1-1.0); Bun/Creatinine Ratio 20.6 (12.0-20.0); Calcium, Blood 9.4 mg/dL (8.5-10.1); Creatinine, Blood 1.02 mg/dL (0.60-1.20); Globulin, Blood 3.3 g/dL (2.2-4.0); Potassium, Blood 3.8 mmol/L (3.5-5.5); Total Protein, Blood 6.8 g/dL (6.4-8.2)
[2024-12-17] MEDS ORDERED: Allopurinol 100 MG Tab PO SCH (09:00)
[2024-12-17] MEDS ORDERED: Apixaban 5 MG Tab PO SCH (09:00)
[2024-12-17] MEDS ORDERED: Omeprazole 20 MG CapCR PO SCH (09:00)
[2024-12-17] MEDS ORDERED: AmLODIPine Besylate 5 MG Tab PO SCH (09:00)
[2024-12-17] MEDS ORDERED: Atorvastatin 10 MG Tab PO SCH (09:00)
[2024-12-17] MEDS ORDERED: Metoprolol Tartrate 50 MG Tab PO SCH (09:00)
[2024-12-17] MEDS ORDERED: Losartan Potassium 50 MG Tab PO SCH (09:00)
[2024-12-17] MEDS ORDERED: Aspirin 81 MG TabEC PO SCH (09:00)
[2024-12-17] MEDS ORDERED: Ranolazine 500 MG ER Tablet PO SCH (09:00)
[2024-12-17 09:21] VITALS: BP 160/94
[2024-12-17 09:57] LABS: Anti-Xa UFH, PHA Monitoring 0.55 IU/mL; International Normalized Ratio 1.03
[2024-12-17] MEDS ORDERED: Heparin Sodium,Porcine/0.5 NS 500 ML IV SCH (10:10)
[2024-12-17] MEDS ORDERED: FentaNYL Citrate 50 MCG/ML 2 ML Injection IV PRN (12:10)
[2024-12-17] MEDS ORDERED: Pantoprazole Sodium 40 MG Injection IV SCH (14:35)
[2024-12-17 15:20] VITALS: BP 164/80
--- NOTE | 2024-12-17 18:45 | NUR ---
SHIFT SUMMARY PT IS A/OX4, SBA D/T WEAKNESS. PT HAS BEEN NPO THROUGHOUT THIS SHIFT. THIS AFTERNOON PT BEGAN DESCRIBING CHEST PRESSURE AND NUMBNESS DOWN HIS LEFT ARM AND LEFT LEG. DR GALLEGOS NOTIFIED AND EKG COMPLETED, SEE CHART, AND TROPONINS LABS DRAWN AND EVALUATED, TROPONINS WNL. PT RELAYS THAT THE PAIN HAS SINCE MOSTLY RESIDED. PT REFUSES NG TUBE AT THIS TIME.
[2024-12-17 19:22] VITALS: BP 155/77
[2024-12-17] MEDS ORDERED: Dose Adjust by Pharmacy XX STA (19:29)
--- NOTE | 2024-12-18 00:38 | NUR ---
HOSPITALIST CONTACT PT REQUESTING CODE STATUS CHANGE TO DNR PER CONVERSATION WITH PRIMARY NURSE. CALL TO HOSPITALIST; JENNI. ORDER TO CHANGE FROM FULL CODE TO DNR.
[2024-12-18 02:06] VITALS: BP 126/58
[2024-12-18 02:14] LABS: BASOPHILS ABSOLUTE AUTO 0.02 K/mm3 (0.00-0.23); BASOPHILS PERCENT AUTO 0 % (0-2); EOSINOPHILS ABSOLUTE AUTO 0.04 K/mm3 (0.00-0.68); EOSINOPHILS PERCENT AUTO 0 % (0-6); Hematocrit 31.2 % (37.0-53.0); Hemoglobin 10.2 g/dL (13.5-17.5); IMMATURE GRAN ABSOLUTE AUTO 0.03 K/mm3 (0.00-0.10); IMMATURE GRAN PERCENT AUTO 0 % (0-1); LYMPHOCYTES ABSOLUTE AUTO 1.41 K/mm3 (0.84-5.20); LYMPHOCYTES PERCENT AUTO 14 % (21-46); MONOCYTES ABSOLUTE AUTO 0.96 K/mm3 (0.16-1.47); MONOCYTES PERCENT AUTO 9 % (4-13); Mean Corpuscular HGB 30.8 pg (26.0-34.0); Mean Corpuscular HGB Conc 32.7 g/dL (31.5-36.5); Mean Corpuscular Volume 94 fL (80-100); NEUTROPHILS ABSOLUTE AUTO 7.79 K/mm3 (1.96-9.15); NEUTROPHILS PERCENT AUTO 76 % (41-73); Platelet Count 215 K/mm3 (150-400); RDW Coefficient Variation 15.9 % (11.7-14.2); RDW Standard Deviation 54.8 fL (35.1-46.3); Red Blood Cell Count 3.31 M/mm3 (4.30-5.90); White Blood Cell Count 10.25 K/mm3 (4.00-11.30)
[2024-12-18 02:36] LABS: Albumin, Blood 3.3 g/dL (3.4-5.0); Albumin/Globulin Ratio 1.1 (0.8-1.8); Bilirubin, Total 0.4 mg/dL (0.1-1.0); Bun/Creatinine Ratio 20.8 (12.0-20.0); Calcium, Blood 8.8 mg/dL (8.5-10.1); Creatinine, Blood 1.06 mg/dL (0.60-1.20); Potassium, Blood 4.1 mmol/L (3.5-5.5); Total Protein, Blood 6.3 g/dL (6.4-8.2)
[2024-12-18] MEDS ORDERED: Dose Adjust by Pharmacy XX STA (02:48)
--- NOTE | 2024-12-18 04:02 | NUR ---
SHIFT SUMMARY ADMITTED FOR SBO. DNR CODE. SURGICAL CONSULT IS NOTIFIED. ELIQUIS IS HELD. HEPARIN GTT INFUSING, PHARMACY MANAGED. HE IS NPO. COLOSTOMY IN PLACE LLQ. STANDBY ASSIST - BRP. ON RA. A&O X4. HX OF RECTAL CANCER. HE DENIES PAIN OR NAUSEA THIS SHIFT.
[2024-12-18 07:51] VITALS: BP 133/59
--- NOTE | 2024-12-18 15:42 | NUR ---
PT DSICHARGED TO HOME. PT'S DAUGHTER AT BEDSIDE AT TIME OF DISCHARGE. PT INSTRUCTED AND PROVIDED WITH DISCHARGE INSTRUCTIONS. ALL VALUABLES RETURNED AND SENT HOME WITH THE PT.
[2024-12-19 19:55] LABS: CK TOTAL 76 U/L (39-308); CK-BB 0 % (0-0); CK-MACRO TYPE I 0 % (0-0); CK-MACRO TYPE II 0 % (0-0); CK-MB 0 % (0-4); CK-MM 100 % (96-100)
== END 2024-12-18 15:33 | disposition home or self-care (01) | DRG 389 ==
LOC: ER 18:36 → ERHOLD 12-17 01:16 → MEDS 12-17 01:16
PROVIDERS: Hospitalist; Student in an Organized Health Care Education/Training Program; ADMIT Student in an Organized Health Care Education/Training Program
DX: K56.609 Unspecified intestinal obstruction, unspecified as to partial versus complete obstruction (principal); I13.0 Hypertensive heart and chronic kidney disease with heart failure and stage 1 through stage 4 chronic kidney disease, or unspecified chronic kidney disease; I50.32 Chronic diastolic (congestive) heart failure; Z28.21 Immunization not carried out because of patient refusal; Z85.048 Personal history of other malignant neoplasm of rectum, rectosigmoid junction, and anus; Z93.3 Colostomy status; I48.0 Paroxysmal atrial fibrillation; Z79.01 Long term (current) use of anticoagulants; E11.22 Type 2 diabetes mellitus with diabetic chronic kidney disease; N18.31 Chronic kidney disease, stage 3a; I25.10 Atherosclerotic heart disease of native coronary artery without angina pectoris; Z95.5 Presence of coronary angioplasty implant and graft; E78.5 Hyperlipidemia, unspecified; G47.33 Obstructive sleep apnea (adult) (pediatric); Z92.3 Personal history of irradiation; Z92.21 Personal history of antineoplastic chemotherapy
CPT/HCPCS: 36415; 74177; 80053; 81003; 82550; 82552; 82947; 83690; 83735; 84484; 85025; 85520; 85610; 85730; 93005; 93010; 99285-25; A9270; J1644; J1815; J2405; J2470; Q9967

== ENCOUNTER 2025-09-27 16:48 | Emergency (ER) | payer MEDICARE ==
[~2025-09-27] VITALS: Ht 172.7 cm; Wt 86.2 kg
[~2025-09-27 16:48] MED LIST changes: +METO50ER PO
[2025-09-27 17:07] LABS: BASOPHILS ABSOLUTE AUTO 0.02 K/mm3 (0.00-0.23); BASOPHILS PERCENT AUTO 0 % (0-2); EOSINOPHILS ABSOLUTE AUTO 0.05 K/mm3 (0.00-0.68); EOSINOPHILS PERCENT AUTO 1 % (0-6); Hematocrit 25.8 % (37.0-53.0); Hemoglobin 8.1 g/dL (13.5-17.5); IMMATURE GRAN ABSOLUTE AUTO 0.03 K/mm3 (0.00-0.10); IMMATURE GRAN PERCENT AUTO 0 % (0-1); LYMPHOCYTES ABSOLUTE AUTO 2.25 K/mm3 (0.84-5.20); LYMPHOCYTES PERCENT AUTO 28 % (21-46); MONOCYTES ABSOLUTE AUTO 0.79 K/mm3 (0.16-1.47); MONOCYTES PERCENT AUTO 10 % (4-13); Mean Corpuscular HGB Conc 31.4 g/dL (31.5-36.5); Mean Corpuscular Volume 92 fL (80-100); NEUTROPHILS ABSOLUTE AUTO 5.05 K/mm3 (1.96-9.15); NEUTROPHILS PERCENT AUTO 62 % (41-73); NRBC ABSOLUTE 0.00 K/mm3 (0.00-0.02); NRBC Auto 0.0 /100 WBC (0.0-0.2); Platelet Count 188 K/mm3 (150-400); RDW Coefficient Variation 17.2 % (11.7-14.2); RDW Standard Deviation 58.2 fL (35.1-46.3)
[2025-09-27 17:27] LABS: Alanine Aminotransfer (ALT/SGP 20.0 U/L (12-78); Albumin, Blood 3.4 g/dL (3.4-5.0); Albumin/Globulin Ratio 1.3 (0.8-1.8); Anion Gap 8.0 mmol/L (3-11); Aspartate Aminotrans (AST/SGOT 17.0 U/L (12-37); Bilirubin, Total 0.4 mg/dL (0.1-1.0); Blood Urea Nitrogen 33.0 mg/dL (8-24); CO2, Blood 25.0 mmol/L (21-32); Calcium, Blood 8.7 mg/dL (8.5-10.1); Chloride, Blood 110.0 mmol/L (98-108); Creatinine, Blood 1.12 mg/dL (0.60-1.20); Globulin, Blood 2.7 g/dL (2.2-4.0); Glucose, Blood 108.0 mg/dL (70-99); Potassium, Blood 4.1 mmol/L (3.5-5.5); Sodium, Blood 139.0 mmol/L (136-145); Total Protein, Blood 6.1 g/dL (6.4-8.2)
[2025-09-27 20:15] VITALS: BP 149/61
== END 2025-09-27 20:30 | disposition home or self-care (01) ==
LOC: ER 16:48
PROVIDERS: Student in an Organized Health Care Education/Training Program
DX: R07.9 Chest pain, unspecified (principal); Z87.891 Personal history of nicotine dependence
CPT/HCPCS: 71046; 80053; 83690; 84484; 85025; 93005; 93010; 99285-25